=== PATIENT | female | born 1990 | race Caucasian/White ===

== ENCOUNTER → 2018-03-13 17:29 | Outpatient (CLI) | payer BC, SELFPAY ==
[2018-03-13 19:10] LABS: hCG Titer Quant., Serum 26560 mIU/mL (<9 non-preg)
== END ==
PROVIDERS: Family Provider Internal Medicine; PCP Internal Medicine; Visit Provider Obstetrics & Gynecology
DX: N91.2 Amenorrhea, unspecified (principal)
CPT/HCPCS: 36415; 84702

== ENCOUNTER → 2018-04-13 13:54 | Outpatient (CLI) | payer BC, SELFPAY ==
[2018-04-13 14:58] LABS: Absolute Lymphocyte Count 2.08 X10^3/ul (0.83-4.51); Absolute Neutrophil Count 7.2 X10^3/uL (2.0-7.7); Basophil# 0.01 X10^3/uL; Basophil% 0.1 % (0-1); Eosinophil# 0.02 X10^3/uL; Eosinophils% 0.2 % (0-5); Hematocrit 37.6 % (37-47); Hemoglobin 12.9 g/dl (12.0-15.0); Lymphocyte # 2.08 X10^3/ul (4.0); Lymphocyte % 20.8 % (19-41); Mean Corp Hgb Conc 34.3 g/gl (32-36); Mean Corpuscular Hgb 27.4 pg (27.0-32.0); Mean Platelet Vol. 8.8 fl (6.2-12.0); Monocyte# 0.67 X10^3/uL; Monocyte% 6.7 % (0-10); Neutrophil # 7.21 X10^3/uL (2.7-7.7); Neutrophil % 72.1 % (47-70); Platelet Count 290 K/mm3 (150-450); RBC Distribution Width CV 13.3 % (11.6-14.6); RBC Distribution Width SD 38.8 fl (35.1-43.9)
[2018-04-13 15:01] LABS: POSITIVE COUNT NO; POSITIVE DIFFERENTIAL NO; POSITIVE MORPHOLOGY NO
[2018-04-13 15:09] LABS: Color, Urine Yellow (Yellow); Glucose, Dipstick Normal (Normal); Leukocyte Esterase-Dipstick 500 /ul (Negative); Nitrite-Dipstick Negative (Negative); Occult Blood-Urine Negative /ul (Negative); Protein-Dipstick Negative (Negative); Urine Bilirubin Dipstick Negative (Negative); Urine Clarity Clear (Clear); Urine Urobilinogen Normal (Normal)
[2018-04-13 15:15] LABS: Ketone-Dipstick 150 mg/dl (Negative)
[2018-04-13 15:30] LABS: Thyroid Stim Hormone (TSH) 1.79 uIU/mL (0.358-3.74)
[2018-04-13 16:12] LABS: Amphetamine Urine VISTA NEGATIVE (<1000 ng/mL); Barbiturate Urine VISTA NEGATIVE (< 200 ng/mL); Benzodiazepine Urine VISTA NEGATIVE (< 200 ng/mL); Cocaine Urine VISTA NEGATIVE (< 300 ng/mL); Ecstacy Urine VISTA NEGATIVE (< 500 ng/mL); Methadone Urine VISTA NEGATIVE (< 300 ng/mL); PCP Urine VISTA NEGATIVE (< 25 ng/mL); THC Urine VISTA NEGATIVE (< 50 ng/mL); Vista UDS pH Range 7
[2018-04-13 16:20] LABS: HIV - WCH Non-Reactive (Nonreactive); Rubella IgG 443.7 IU/mL
[2018-04-13 17:31] LABS: Chlamydia Trachomatis by PCR Negative (Negative); Neisserai gonorrhoeae by PCR Negative (Negative); Probe Check PASS; Sample Adequacy Control PASS; Specimen Processing Control PASS
[2018-04-14 13:31] LABS: HEPATITIS B SURFACE AG Negative (Negative); Hep C Antibodies <0.1 s/co ratio (0.0-0.9)
[2018-04-20 09:08] LABS: Prenatal RPR NONREACTIVE (NONREACTIVE)
== END ==
PROVIDERS: Visit Provider Obstetrics & Gynecology
DX: Z34.81 Encounter for supervision of other normal pregnancy, first trimester (principal); Z11.3 Encounter for screening for infections with a predominantly sexual mode of transmission
CPT/HCPCS: 36415; 80307; 81002; 84443; 85025; 86703; 86762; 86803; 87340; 87491; 87591

== ENCOUNTER → 2018-06-09 09:18 | Outpatient (CLI) | payer BC, SELFPAY ==
--- NOTE | 2018-06-09 09:20 | US_ITS ---
STUDY: SECOND AND THIRD TRIMESTER OBSTETRICAL ULTRASOUND REASON FOR EXAM: Female, 27 years old. Routine survey. LMP: 01/24/2018 TECHNIQUE: Transabdominal PRIOR ULTRASOUND: None. FINDINGS: There is a single intrauterine fetus. The fetus is in a breech presentation. There is demonstrated cardiac activity with a heart rate of 140 bpm. There is a normal amniotic fluid volume. The largest amniotic fluid pocket measures 10.2 cm. The placenta is anterior and low lying but not previa in location. There are Grade 0 placental changes. The cervix is closed. BIOMETRY: BPD: 4.3: 19 weeks, 0 days HC: 16.4: 19 weeks, 2 days AC: 14.3: 19 weeks, 5 days FL: 3.2: 20 weeks, 0 days CI: FL/BPD: FL/HC: FL/AC: HC/AC: age by current US: 19 weeks, 4 days. JP by current US: 10/30/2018. Estimated weight: 307 grams, +/- 45 grams, 61 %. age by prior US: weeks, days. JP by prior US: . Age by LMP: 19 weeks, 3 days. JP by LMP: 10/31/2018. ANATOMY: Gender: Female Cranium: Normal lateral ventricles. Normal choroid plexus. Normal cerebellum. Normal cisterna magna. Normal face, nose and lips. Chest: The heart is not adequately visualized. Abdomen/Pelvis: Normal diaphragm. Normal stomach. Normal abdominal wall. Normal cord insertion. Normal 3 vessel cord. Normal kidneys. Normal bladder. Spine: Normal cervical spine. Normal thoracic spine. Normal lumbar spine. Sacrum is not adequately visualized. Extremities: Normal bilateral upper extremities. Normal bilateral lower extremities. US/OB Anatomy Scan IMPRESSION: Single live fetus in a breech presentation. No demonstrated anatomic abnormality, however some structures not adequately seen as above. Placenta is grade 0 and is not low-lying. Cervix is closed. age by current US: 19 weeks, 4 days. JP by current US: 10/30/2018. Estimated weight: 307 grams, +/- 45 grams, 61 %. Electronically Signed: John Lopez MD at 23:54 EDT , Service support ,
== END ==
PROVIDERS: Visit Provider Obstetrics & Gynecology
DX: Z34.90 Encounter for supervision of normal pregnancy, unspecified, unspecified trimester (principal)
CPT/HCPCS: 76805

== ENCOUNTER → 2018-06-14 16:56 | Outpatient (CLI) | payer BC, SELFPAY | PROVIDERS: Visit Provider Nurse Practitioner Women's Health | DX: Z34.90 Encounter for supervision of normal pregnancy, unspecified, unspecified trimester (principal) | CPT/HCPCS: 87086; 87088 ==

== ENCOUNTER → 2018-07-02 08:46 | Outpatient (CLI) | payer BC, SELFPAY | PROVIDERS: Visit Provider Nurse Practitioner Women's Health | DX: Z04.8 Encounter for examination and observation for other specified reasons (principal) | CPT/HCPCS: 76815 ==

== ENCOUNTER → 2018-08-13 10:14 | Outpatient (CLI) | payer BC, SELFPAY ==
[2018-08-13 10:36] LABS: Absolute Lymphocyte Count 1.47 X10^3/ul (0.83-4.51); Absolute Neutrophil Count 9.7 X10^3/uL (2.0-7.7); Basophil# 0.01 X10^3/uL; Basophil% 0.1 % (0-1); Eosinophil# 0.02 X10^3/uL; Eosinophils% 0.2 % (0-5); Hematocrit 36.2 % (37-47); Lymphocyte # 1.47 X10^3/ul (4.0); Lymphocyte % 12.6 % (19-41); Mean Corp Hgb Conc 33.1 g/gl (32-36); Mean Corpuscular Hgb 27.3 pg (27.0-32.0); Mean Corpuscular Volume 82.5 fL (81-99); Monocyte# 0.48 X10^3/uL; Monocyte% 4.1 % (0-10); Neutrophil # 9.68 X10^3/uL (2.7-7.7); Neutrophil % 82.9 % (47-70); Platelet Count 243 K/mm3 (150-450); RBC Distribution Width CV 14.2 % (11.6-14.6); RBC Distribution Width SD 42.6 fl (35.1-43.9); Red Blood Count 4.39 M/mm3 (4.2-5.4); White Blood Count 11.7 K/mm3 (4.4-11.0)
[2018-08-13 10:37] LABS: POSITIVE COUNT NO; POSITIVE DIFFERENTIAL NO; POSITIVE MORPHOLOGY NO
[2018-08-13 11:04] LABS: Glucose Challenge Gest 1H 50g 154 mg/dL (70-140)
== END ==
PROVIDERS: Referring Provider Nurse Practitioner Women's Health; Visit Provider Nurse Practitioner Women's Health
DX: Z34.90 Encounter for supervision of normal pregnancy, unspecified, unspecified trimester (principal)
CPT/HCPCS: 36415; 82950; 85025

== ENCOUNTER → 2018-08-20 09:55 | Outpatient (CLI) | payer BC, SELFPAY ==
[2018-08-20 11:03] LABS: Glucose GTT-Gestation. Fasting 84 mg/dL (<105)
[2018-08-20 11:43] LABS: Glucose GTT-Gestational 1 Hr 164 mg/dL (<190)
[2018-08-20 13:49] LABS: Glucose GTT-Gestational 2 Hr 152 mg/dL (<165)
[2018-08-20 13:50] LABS: Glucose GTT-Gestational 3 Hr 72 L (<145)
== END ==
PROVIDERS: Referring Provider Nurse Practitioner Women's Health; Visit Provider Nurse Practitioner Women's Health
DX: O99.815 Abnormal glucose complicating the puerperium (principal)
CPT/HCPCS: 36415; 82951; 82952

== ENCOUNTER → 2018-10-10 16:47 | Outpatient (CLI) | payer BC, SELFPAY ==
[2018-10-10 11:46] VITALS: BMI 42.9
--- OUTSIDE RECORDS SUMMARY | 2018-12-06 02:53 | XMS RPT_ITS ---
:1990 Author Organization OHIP Support Name Relationship Address Phone JAMIE ALVAREZ Unavailable [address] + [place] [address] [id number] Unavailable [address] + [place] [address] JAMIE ALVAREZ Unavailable [address] + [place] [address] [id number] Unavailable [address] + [place] [address] NELLIE ALVAREZED Unavailable [address] + [place] [address] [id number] Unavailable [address] + [place] [address] KIM, JAMIE Unavailable [address] + [place] [address] [id number] Unavailable [address] + [place] [address] KIM, JAMIE Unavailable [address] + [place] [address] [id number] Unavailable [address] + [place] [address] KIM, JAMIE Unavailable [address] + [place] [address] [id number] Unavailable [address] + [place] [address] KIM, JAMIE Unavailable [address] + [place] [address] [id number] Unavailable [address] + [place] [address] NELLIE ALVAREZED Unavailable [address] + [place] [address] [id number] Unavailable [address] + [place] [address] ALVAREZ, JAMIE Unavailable [address] + [place] [address] [id number] Unavailable [address] + [place] [address] ALVAREZ, JAMIE Unavailable [address] + [place] [address] [id number] Unavailable [address] + [place] [address] ALVAREZ, JAMIE Unavailable [address] + [place] [address] [id number] Unavailable [address] + [place] [address] ALVAREZ, JAMIE Unavailable [address] + [place] [address] [id number] Unavailable [address] + [place] [address] ALVAREZ, JAMIE Unavailable [address] + [facility] [place] [address] [id number] Unavailable [address] + [place] [address] ALVAREZ, JAMIE Unavailable [address] + [facility] [place] [address] [id number] Unavailable [address] + [place] [address] ALVAREZ, JAMIE Unavailable [address] + [place] [address] [id number] Unavailable [address] + [place] [address] ALVAREZ, JAMIE Unavailable [address] + [place] [address] [id number] Unavailable [address] + [place] [address] ALVAREZ, JAMIE Unavailable [address] + [place] [address] [id number] Unavailable [address] + [place] [address] ALVAREZ, JAMIE Unavailable [address] + [place] [address] [id number] Unavailable [address] + [place] [address] ALVAREZ, JAMIE Unavailable [address] + [place] [address] [id number] Unavailable [address] + [place] [address] ALVAREZ, JAMIE Unavailable [address] + [place] [address] [id number] Unavailable [address] + [place] [address] ALVAREZ, JAMIE Unavailable [address] + [place] [address] [id number] Unavailable [address] + [place] [address] ALVAREZ, JAMIE Unavailable [address] + [place] [address] [id number] Unavailable [address] + [place] [address] ALVAREZ, JAMIE Unavailable [address] + [place] [address] [id number] Unavailable [address] + [place] [address] [id number] Unavailable [address] + [place] [address] ALVAREZ, JAMIE Unavailable [address] + [place] [address] [id number] Unavailable [address] + [place] [address] MITUL LI Unavailable Unavailable + [place] [address] ALIX RAMSEY Unavailable [address] + [place] [address] [id number] Unavailable [address] [facility] [address] + [place] [address] MITUL LI Unavailable Unavailable + [place] [address] ALIX RAMSEY Unavailable [address] + [place] [address] [id number] Unavailable [address] [facility] [address] + [place] [address] Care Team Providers Name Role Phone Alix Nicole Attending Unavailable MarcanthonyAlix Referring Unavailable Primay Care Physicia, No Primary Care Unavailable Benekos, Tara Attending Unavailable Talampas, Kirstie Primary Care Unavailable Benekos, Tara Referring Unavailable Benekos, Tara Attending Unavailable Marcanthony, Alix Attending Unavailable Talampas, Kirstie Referring Unavailable Talampas, Kirstie Primary Care Unavailable Talampas, Kirstie Attending Unavailable Marcanthony, Alix Attending Unavailable Marcanthony, Alix Referring Unavailable Primay Care Physicia, No Primary Care Unavailable Eduin, Jeimy Attending Unavailable Talampas, Kirstie Referring Unavailable Primay Care Physicia, No Primary Care Unavailable Eduin, Jeimy Attending Unavailable Primay Care Physicia, No Primary Care Unavailable Eduin, Jeimy Referring Unavailable Eduin, Jeimy Attending Unavailable Primay Care Physicia, No Primary Care Unavailable MarcanthonyAlix Attending Unavailable Primay Care Physicia, No Referring Unavailable Primay Care Physicia, No Primary Care Unavailable Jber, Jeimy Attending Unavailable Primay Care Physicia, No Referring Unavailable Jber, Jeimy Attending Unavailable Jber, Jeimy Referring Unavailable Primay Care Physicia, No Primary Care Unavailable Eduin, Jeimy Attending Unavailable Eduin, Jeimy Referring Unavailable Primay Care Physicia, No Primary Care Unavailable Marcanthony, Alix Attending Unavailable Primay Care Physicia, No Referring Unavailable Marcanthony, Alix Attending Unavailable Primay Care Physicia, No Referring Unavailable Eduin, Jeimy Attending Unavailable Primay Care Physicia, No Referring Unavailable MarcanthonyAlix Admitting Unavailable Marcanthony, Alix Attending Unavailable MarcanthonyAlix Referring Unavailable Primay Care Physicia, No Primary Care Unavailable Marcanthony, Alix Attending Unavailable Primay Care Physicia, No Referring Unavailable Marcanthony, Alix Attending Unavailable Primay Care Physicia, No Primary Care Unavailable Marcanthony, Alix Referring Unavailable Marcanthony, Alix Attending Unavailable Primay Care Physicia, No Referring Unavailable Marcanthony, Alix Attending Unavailable Marcanthony, Alix Referring Unavailable Primay Care Physicia, No Primary Care Unavailable Marcanthony, Alix Admitting Unavailable Marcanthony, Alix Attending Unavailable Primay Care Physicia, No Primary Care Unavailable Marcanthony, Alix Admitting Unavailable Marcanthony, Alix Attending Unavailable Primay Care Physicia, No Primary Care Unavailable Marcanthony, Alix Consulting Unavailable Marcanthony, Alix Admitting Unavailable Marcanthony, Alix Attending Unavailable Primay Care Physicia, No Primary Care Unavailable Marcanthony, Alix Consulting Unavailable Marcanthony, Alix Admitting Unavailable Marcanthony, Alix Attending Unavailable Primay Care Physicia, No Primary Care Unavailable Marcanthony, Alix Consulting Unavailable Marcanthony, Alix Admitting Unavailable Marcanthony, Alix Attending Unavailable Primay Care Physicia, No Primary Care Unavailable Marcanthony, Alix Consulting Unavailable PROBLEMS PROBLEMS DATE TYPE CONDITION / CODE ATTENDING STATUS SOURCE 10/11/2018 Unknown Z34.90 - Encounter Marcanthony, Active [place] for supervision of [facility] normal , Hospital unspecified, Repository unspecified trimester / Z34.90(ICD-10) 10/10/2018 Unknown R87.610 - Atypical Marcanthony, Active [place] squamous cells of [facility] undetermined Hospital significance on Repository cytologic smear of cervix (ASC-US) / R87.610(ICD-10) 10/10/2018 Unknown Z30.431 - Encounter Marcanthony, Active [place] for routine [facility] checking of Hospital intrauterine Repository contraceptive device / Z30.431(ICD-10) 10/10/2018 Unknown Z34.03 - Encounter Marcanthony, Active [place] for supervision of [facility] normal first Hospital , third Repository trimester / Z34.03(ICD-10) 10/10/2018 Unknown O99.815 - Abnormal Marcanthony, Active [place] glucose [facility] complicating the Hospital puerperium / Repository O99.815(ICD-10) 10/10/2018 Unknown Z3A.36 - 36 weeks Marcanthony, Active [place] gestation of [facility] / Hospital Z3A.36(ICD-10) Repository 09/24/2018 Unknown Z68.39 - Body mass Jber, Jeimy Active [facility] index (BMI) Community 39.0-39.9, adult / Hospital Z68.39(ICD-10) Repository 09/24/2018 Unknown Z3A.34 - 34 weeks Eduin, Jeimy Active [facility] gestation of [facility] / Hospital Z3A.34(ICD-10) Repository 09/10/2018 Unknown Z3A.32 - 32 weeks Marcanthony, Active [place] gestation of [facility] / Hospital Z3A.32(ICD-10) Repository 08/27/2018 Unknown Z3A.30 - 30 weeks Marcanthony, Active [facility] gestation of [facility] / Hospital Z3A.30(ICD-10) Repository 08/13/2018 Unknown Z34.02 - Encounter Eduin, Jeimy Active [place] for supervision of [facility] normal first Hospital , second Repository trimester / Z34.02(ICD-10) 08/13/2018 Unknown Z23 - Encounter for Jber, Jeimy Active [place] immunization / [facility] Z23(ICD-10) Hospital Repository 08/13/2018 Unknown Z3A.28 - 28 weeks Jber, Jeimy Active [place] gestation of [facility] / Hospital Z3A.28(ICD-10) Repository 07/17/2018 Unknown Z3A.25 - 25 weeks Marcanthony, Active [facility] gestation of [facility] / Hospital Z3A.25(ICD-10) Repository 07/02/2018 Unknown Z04.8 - Encounter Jber, Jeimy Active [facility] for examination and Community observation for Hospital other specified Repository reasons / Z04.8(ICD-10) 06/14/2018 Unknown Z3A.20 - 20 weeks Jber, Jeimy Active [place] gestation of [facility] / Hospital Z3A.20(ICD-10) Repository 04/27/2018 Unknown Z34.81 - Encounter Tara Gómez Active [facility] for supervision of Community other normal Hospital , first Repository trimester / Z34.81(ICD-10) 03/13/2018 Unknown N91.2 - Amenorrhea, Tara Gómez Active [facility] unspecified / Community N91.2(ICD-10) Hospital Repository PROCEDURES PROCEDURES No Procedure Records FoundRESULTS RESULTS OPERATIVE REPORT Observed: 10/19/2018 Status: F Source: RADHA 5:24 AM [facility] REPOSITORY [facility] Medical Records Department [address] [place] [address] Operative Report 10/19/18 0429 MR#: [id number] Acct: [id number] Name: CHARO ALVAREZ Rep #: [id number] : 1990 28 From: Alix Nicole MD PCP: Care Physician, No Primary Status: ADM IN Y Location: [id number] - Problem List (1) PROM (premature rupture of membranes) Status: Acute (2) Obesity affecting Status: Acute Comment: nl 1 tm glucola, discussed healthy weight gain (3) Unspecified contraceptive management Status: Acute Qualifiers: Comment: iud pp (4) Abnormal glucose complicating puerperium Status: Acute Comment: 3 hr GTT normal (5) Unspecified contraceptive management Status: Acute Comment: Mirena IUD pp (6) Status: Acute Qualifiers: Comment: anatomy scan normal. (7) ASCUS of cervix with negative high risk HPV Status: Acute Comment: pap PP (8) Supervision of normal Status: Acute Qualifiers: Comment: JP 10/31/18 girl- surprise name Jamie (dtr Fran) Vaginal Delivery Maternal Presentation: Spontaneous Rupture of Membranes 28 yo presents IAL srom clear fluid. started on pitocin due to minimal contractions Method of Induction: Pitocin Amniotic Membrane Rupture Type: Spontaneous at home Amniotic Fluid Description: Clear Final JP: 10/30/18 Gestational age: 38 Weeks and 3 Days Date of Procedure: 10/19/18 Pre-Operative Diagnosis: PROM Post-Operative Diagnosis: same Surgery/ Procedure Performed: Spontaneous Vaginal Delivery Type of Anesthesia: Epidural Description of Procedure: Patient began pushing and delivered the head in the JOSE presentation. The head was delivered atraumatically. The shoulders came down transversely and then spontaneously rotated to the right shoulder being anterior. The anterior and posterior shoulders delivered without complication followed by the rest of the and the was placed on the maternal abdomen. Delayed cord clamping was employed for approximately 60 seconds. Cord was clamped and cut and gentle traction was applied to the cord and the placenta delivered spontaneously immediately following it was noted to be intact with three- vessel cord. The perineum and vagina were inspected and noted to have a small first-degree perineal laceration was repaired in the usual fashion with 3-0 Vicryl repeat. EBL was 100 cc. Patient and tolerated delivery well. Presentation: JOSE Placental Delivery Description: Spontaneous Placenta Disposition: [facility] Cord Vessel Description: 3 Vessels Cord Entanglement: None Estimated Blood Loss: 100 A gender: Female Episiotomy Description: None Laceration: Perineal Extension/lac, 1st degree Medications given after delivery: IV Pitocin Complications: None 10/19/18523 <Electronically signed by Alix Nicole MD> Date Alix Nicole MD CC: No Primary Care Physician; Alix Nicole MD Signed DISCHARGE INSTRUCTION Observed: 10/19/2018 Status: F Source: ANTWERP 5:24 AM [facility] REPOSITORY [facility] Medical Records Department [address] [place] [address] Instructions for Home/Discharge Instructions 10/19/18523 MR#: [id number] Acct: [id number] Name: CHARO ALVAREZ Rep #: [id number] : 1990 28 From: Alix Nicole MD PCP: Care Physician, No Primary Status: ADM IN Discharge Diet: No Restrictions Discharge Activity: Return to Normal Activity, May not drive while taking narcotic pain medications., May Shower May resume sexual activity in: 4-6 weeks Call your doctor if your incision/area has: Continuous Slow Oozing, Sudden Increased Bleeding, Increased Pain/ Swelling, Increased Redness, Foul Smelling Discharge Additional Instructions: If you experience any of the following, contact your healthcare provider. * Bleeding that soaks a pad every hour for 2 hours * Fever 100.4 or higher * Unrelieved incision or abdominal pain * Swelling, redness, discharge or bleeding from your incision or episiotomy site * Your incision begins to separate * Problems urinating (including inability to urinate or burning while urinating). * Visual changes * Severe headache * Flu-like symptoms * Pain or redness in one of both of your breasts * Pain, warmth, tenderness or swelling in your legs, especially the calf area * Frequent nausea and vomiting * Symptoms of depression or anxiety If you experience any of the following, call 911 or go to the nearest Emergency Room. * Chest pain * Problems breathing * Seizure activity * Partial or complete paralysis of a body part, slurred speech, weakness or drooping of the face, or a sudden inability to walk or hold your balance Allergies/Adverse Reactions: Allergies No Known Allergies Allergy (Verified 10/15/18 08:40) Medications to take at Discharge omeprazole 40 mg capsule,delayed release 40 mg PO QDAY 05/14/18 vitamin,calcium,nrprbgtc-ixfe-zmnqq acid tablet 1 tab PO QDAY 05/14/18 breast pump See Dose Instructions .ROUTE .MEDSUPPLY #1 ea 08/20/18 Please Follow Up With: Alix Nicole MD - [phone] When: Call to make an appointment with your doctor in 6 weeks. If you had elevated Blood pressure or 4th degree laceration you will need to be seen in 2 weeks. Primary Care Physician: Care Physician,No Primary [Primary Care Provider] - Test Results: Test results from this visit will be discussed in further detail at your follow-up appointment, if applicable. 10/19/18 0524 <Electronically signed by Alix Nicole MD> Date Alix Nicole MD CC: No Primary Care Physician HISTORY AND PHYSICAL Observed: 10/18/2018 Status: F Source: ANTWERP EXAM 8:21 PM [facility] REPOSITORY [facility] Medical Records Department [address] [place] [address] History and Physical 10/18/182016 MR#: [id number] Acct: [id number] Name: CHARO ALVAREZ Rep #: [id number] : 1990 28 From: Alix Nicole MD PCP: Care Physician, No Primary Status: ADM IN Y Location: [id number] - Problem List (1) PROM (premature rupture of membranes) Status: Acute (2) Obesity affecting Status: Acute Comment: nl 1 tm glucola, discussed healthy weight gain (3) Unspecified contraceptive management Status: Acute Qualifiers: Comment: iud pp (4) Abnormal glucose complicating puerperium Status: Acute Comment: 3 hr GTT normal (5) Unspecified contraceptive management Status: Acute Comment: Mirena IUD pp (6) Status: Acute Qualifiers: Comment: anatomy scan normal. (7) ASCUS of cervix with negative high risk HPV Status: Acute Comment: pap PP (8) Supervision of normal Status: Acute Qualifiers: Comment: JP 10/31/18 girl- surprise name Jamie (dtleonila Peters) History Date of Admission: 10/18/18 Final JP: 10/30/18 Gestational age: 38 Weeks and 2 Days History of this : This is a 28 year-old, at 38 weeks gestational agE with clear LOF this afternoon at work. she denies any fevers or vb, admits good fm. she has had an uncomplicated Medical History: Medical History (Last Reviewed 10/15/18 @ 08:41 by Raquel Hackett) GERD (gastroesophageal reflux disease) K21.9 H/O endoscopy Z98.890 H/O wisdom tooth extraction K08.409 Ovarian cyst N83.209 Allergies No Known Allergies Allergy (Verified 10/15/18 08:40) Home Medications: Home Medications omeprazole 40 mg capsule,delayed release 40 mg PO QDAY 05/14/18 vitamin,calcium,cmppxnrw-cmjd-notks acid tablet 1 tab PO QDAY 05/14/18 breast pump See Dose Instructions .ROUTE .MEDSUPPLY #1 ea 08/20/18 Smoking Status: Former smoker Alcohol: None Number of Fetus(es): 1 Heart Tracin-160 moderate variability reactive no decels cat I tracing TOCO Analysis: no regular History Past Pregnancies: Past Pregnancies Delivery Name GA/Weeks Outcome Route WeiInfant GeLabor LenAnesthesiDelivery Provider FOB Date t nder [facility] a Location Labs: Mom[facility] Labs AND Results WBC 12.4 H RBC 4.50 Hgb 12.2 Hct 36.2 L MCV 80.4 L Course Did the patient receive Yes care? Labs Blood Type: A Current Obstetrical History Gestational Diabetes No Incompetent Cervix No Infertility No IUGR No Macrosomia No Hypertension/Pre-eclampsia No Placenta Previa/Abruption No PTL/PROM No Uterine anomaly No Oligohydramnios No Polyhydramnios No Multiple gestation No Past Medical History Asthma No Diabetes No Hypertension No Heart disease No Mitral valve prolapse No Neurologic/Seizure disorder/ No Migraines Kidney disease No Liver disease No Varicosities No Clotting disorders/Hx of DVT No Thyroid Dysfunction No Other medical diseases Yes: GERD Psychiatric disorders No Major trauma No Abnormal PAP smear No Sleep apnea No Mammogram in the last 2 years No Social History Marital Status: Alleged father Jamie Hx Smoking Yes Smoking Status Former smoker Expected Delivery Method: Spontaneous Vaginal Describe any other labor AND delivery plans:: Pregancy History. 1 Elective abortions. Hx Para 0 Spontaneous abortions. Hx # Term Pregnancies Ectopic pregnancies. Hx # Pregnancies Multiple births. # of living children. HPI. OB Visit. JP Calculator. Estimated Delivery Date 10/31/18. Based on LMP (certain) 01/24/18. Current WG 37w 5d. Number 1. Expected Delivery Route/Plan. . Specific Issue/Plans. flu vaccine:declined. minichart given: given. tdap vaccine: given. rhogam: NA. LARC form signed: declines. labor support person: Jamie. pain management: epidural. cut cord/dad catch: maybe. : yes. PP control planned: IUD. special requests: Review of Systems Constitutional: Denies: Fever, Malaise Eyes: Denies: Blurred vision, Vision Change HEENT: Denies: Head Aches, Visual Changes Cardiovascular: Denies: Chest Pain, Palpitations Respiratory: Denies: Cough, Shortness of Breath, Wheezing Gastrointestinal: Denies: Abdominal Pain, Diarrhea, Nausea, Vomiting Genitourinary: Denies: Dysuria, Hematuria Musculoskeletal: Denies: Joint Pain, Muscle pain Skin: Denies: Lesions, Rash Neurological: Denies: Blurred vision, Focal weakness, Headaches Psychiatric: Denies: Anxiety, Depression Endocrine: Denies: Heat/ Cold Intolerance Hematologic/ Lymphatic: Denies: Easy Bruising, Easy Bleeding Physical Exam General: Alert, Cooperative, No apparent distress HEENT: Atraumatic, Normocephalic. Negative for: Thyromegaly, Lymphadenopathy Cardiovascular: Regular rate Lungs: Normal air movement Abdomen: Soft, Non Tender, Gravid Neurological: Deep Tendon Reflexes 2+/4 and Symmetrical, Neuro grossly intact. Negative for: Clonus CELERY CUTTER: Normal external genitalia. Negative for: Vulvar lesions Estimated gestational size: Appropriate for gestational size Presentation: Cephalic Cervix Dilation (cm): 3 Assessment/Plan All Active Problems (Last Reviewed 10/15/18 @ 08:41 by Raquel Hackett) PROM (premature rupture of membranes) (Acute) Obesity affecting (Acute) Unspecified contraceptive management (Acute) Abnormal glucose complicating puerperium (Acute) Unspecified contraceptive management (Acute) (Acute) ASCUS of cervix with negative high risk HPV (Acute) Supervision of normal (Acute) BMI 39.0-39.9,adult (Resolved) This is a 28 year-old, , at 38 weeks gestational age presents with PROM Patient presents PROM, plan expectant management for , pitocin per protocol for limited contractions. Pain management: plans epidural GBS negative. Management of any complications: none I have reviewed the [facility] and made any clinically relevant updates. 10/18/182020 <Electronically signed by Alix Nicole MD> Date Alix Nicole MD Cosigner Signature: Date (if applicable) CC: No Primary Care Physician; Alix Nicole MD Signed CBC-COMPLETE BLOOD CNT Collected: 10/18/2018 Status: F Source: RADHA NO DIFF 7:37 PM [facility] REPOSITORY TYPE CODE TESTS RESULT OUT OF RANGE REFERENCE UNITS LAB L100.1000 4.4-11.0 K/mm3 High WBC 12.4 LAB L100.1200 4.2-5.4 M/mm3 Normal RBC 4.50 LAB L100.1300 12.0-15.0 g/dl Normal HGB 12.2 LAB L100.1400 37-47 % Low HCT 36.2 LAB L100.1500 81-99 fL Low MCV 80.4 LAB L100.1600 27.0-32.0 pg Normal MCH 27.1 LAB L100.1700 32-36 g/gl Normal MCHC 33.7 LAB L100.1810 11.6-14.6 % Normal RDW CV 14.3 LAB L100.1820 35.1-43.9 fl Normal RDW SD 41.6 LAB L100.1900 150-450 K/mm3 Normal PLT 255 LAB L100.2000 6.2-12.0 fl Normal MPV 9.4 Performed By: #### L100.0500 #### [facility] [address] [place], [address] TYPE AND SCREEN Collected: 10/18/2018 Status: F Source: RADHA 7:37 PM [facility] REPOSITORY Order Comment: Reason for Type AND Screen/Red Cells: ROUTINE TYPE CODE TESTS RESULT OUT OF RANGE REFERENCE UNITS LAB B10.0800 A Normal BLOOD TYPE GEL POSITIVE LAB B100.4000 Normal Antibody NEGATIVE Screen Performed By: #### B101.7450 #### [facility] [address] [place], [address] (ROM) RUPTURE OF Collected: 10/18/2018 Status: F Source: RADHA MEMBRANES 6:25 PM [facility] REPOSITORY TYPE CODE TESTS RESULT OUT OF REFERENCE UNITS RANGE LAB L205.1310 Negative High ROM POSITIVE Result Comment: Amniotic fluid present indicates rupture of Membranes. RESULTS CALLED TO C.ST.JOHN CARRERA 10/18/18 1908 Iggy Asif. REPORT READ BACK BY SAME . Performed By: #### L205.1000 #### [facility] [address] [place], [address] MINE SUPERINTENDENT OFFICE VISIT Observed: 10/15/2018 Status: F Source: RADHA REPORT 9:00 AM [facility] REPOSITORY [facility] 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 Is patient in pain?: No Allergies No Known Allergies Allergy (Verified 10/15/18 08:40) Medications omeprazole 40 mg capsule,delayed release 40 mg PO QDAY 05/14/18 [History Confirmed 10/15/18] vitamin,calcium,gcxolujp-laff-wbyjk acid tablet 1 tab PO QDAY 05/14/18 [History Confirmed 10/15/18] breast pump See Dose Instructions .ROUTE .MEDSUPPLY #1 ea 08/20/18 [Rx Confirmed 10/15/18] Last Menstral Period: 01/24/18 Zika: Zika virus screening: Negative : No PFSH PFSH Medical History GERD (gastroesophageal reflux disease) (Acute) H/O endoscopy (Acute) H/O wisdom tooth extraction (Acute) Ovarian cyst (Acute) Family History Mother Acid reflux Osteoporosis Acquired scoliosis Father Acid reflux Diverticula of intestine Sleep apnea Social History adopted: No household members: spouse housing: house number of children: 1 current occupational status: employed current occupation: [employer] current occupational exposures/hazards: No pets and animals: Yes Smoking Status: Current every day smoker second hand exposure: No alcohol intake: current alcohol intake frequency: other substance use type: does not use seatbelt use: always do you feel safe at home: Yes additional social history: Spouse- Jamie Step Dght- Raelah Pregancy History 1 Elective abortions Hx Para 0 Spontaneous abortions HPI 37 weeks: Details: CHARO ALVAREZ is a 28 year old who presents for routine OB visit. OB Visit JP Calculator Estimated Delivery Date 10/31/18 Based on LMP (certain) 01/24/18 Current WG 37w 5d Number 1 Expected Delivery Route/Plan Specific Issue/Plans flu vaccine:declined minichart given: given tdap vaccine: given rhogam: NA LARC form signed: declines labor support person: Jamie pain management: epidural cut cord/dad catch: maybe : yes PP control planned: IUD special requests: Initial Weight: 225 lb Date Weight BP Urine PrFHR FuHt Pres MoCTX DilationFetal StVisit NoProviderComments E ot v te [place] G Effac lucose ed Visit Notes Visit Date: 10/15/18 enlarged fundal height recommend growth us. no vb lof good fm no regular ctx Alix Nicole MD on 10/15/18 Visit Date: 10/10/18 no vb lof good fm no ergular ctx Alix Nicole MD on 10/10/18 Visit Date: 09/24/18 Doing well. No VB, LOF. ALOK Maza on 09/24/18 Visit Date: 09/10/18 no vb lof good fm no regualr ctx Alix Nicole MD on 09/10/18 Visit Date: 08/27/18 no vb lof good fmno regualr ctx Alix Nicole MD on 08/27/18 Visit Date: 08/13/18 Doing well. NO VB, LOF ALOK Maza on 08/13/18 Visit Date: 07/17/18 no vb lof good fm reviewed anatomy us Alix Nicole MD on 07/17/18 Visit Date: 06/14/18 Doing well. Thinks feeling some movement. No vaginal bleeding or LOF since prior to last visit. ALOK Maza on 06/14/18 Visit Date: 05/14/18 had bleeding and brown discharge. JANICE Linas Alix Nicole MD on 05/14/18 ACOG Second Trimester Second Trimester: Signs and Symptoms of Labor, Selecting a care provider, Reproductive Life Planning, Care Planning, Depression/Anxiety and Intimate Partner Violence; discussed Tobacco Cessation Diagnostics Diagnostics Labs Hct 36.2 % (37-47) L 08/13/18 Hgb 12.0 g/dl (12.0-15.0) 08/13/18 Obstetrics Ultrasound 07/02/18 Glucose 1 Hr 50 gm 154 mg/dL (70-140) H 08/13/18 Details: HIV: Urine Culture: Sequential Screen: NIPT Screen: Results [id number] Office Urine Glucose Negative Last Edit by Raquel Hackett on 10/15/18 08:43 Office Urine Protein Negative Last Edit by Raquel Hackett on 10/15/18 08:43 Assessment AND Plan Problems 1. ASCUS of cervix with negative high risk HPV R87.610 pap PP 2. 38 weeks gestation of Z3A.38 anatomy scan normal. 3. Encounter for supervision of normal first in third trimester Z34.03 JP 10/31/18 girl- surprise name Jamie (dtr Fran) 4. Abnormal glucose complicating puerperium O99.815 3 hr GTT normal 5. Encounter for management of intrauterine contraceptive device (IUD), unspecified IUD management type Z30.431 iud pp Plan ACOG trimester education reviewed and updated. see problem list details for updated plan management information and see below for orders placed at this visit. GA appropriate handout given. Orders Orders: Coding Level of Care Code OB Routine Diagnoses ASCUS of cervix with negative high risk HPV R87.610 38 weeks gestation of Z3A.38 Weeks of gestation: 38 weeks Encounter for supervision of normal first in third trimester Z34.03 Normal : normal first Trimester: third trimester Abnormal glucose complicating puerperium O99.815 Encounter for management of intrauterine contraceptive device (IUD), unspecified IUD management type Z30.431 Contraceptive encounter type: IUD management IUD management: unspecified 10/15/18 0900 <Electronically signed by Alix Nicole MD> Date Alix Nicole MD Cosign Signature: Date (if applicable) CC: MINE SUPERINTENDENT OFFICE VISIT Observed: 10/10/2018 Status: F Source: [place] REPORT 12:33 PM [facility] 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 Is patient in pain?: No Allergies No Known Allergies Allergy (Verified 10/10/18 11:46) Medications omeprazole 40 mg capsule,delayed release 40 mg PO QDAY 05/14/18 [History Confirmed 10/10/18] vitamin,calcium,ifwmoqor-qxvx-fovru acid tablet 1 tab PO QDAY 05/14/18 [History Confirmed 10/10/18] breast pump See Dose Instructions .ROUTE .MEDSUPPLY #1 ea 08/20/18 [Rx Confirmed 10/10/18] Last Menstral Period: 01/24/18 Zika: Zika virus screening: Negative : No PFSH PFSH Medical History GERD (gastroesophageal reflux disease) (Acute) H/O endoscopy (Acute) H/O wisdom tooth extraction (Acute) Ovarian cyst (Acute) Family History Mother Acid reflux Osteoporosis Acquired scoliosis Father Acid reflux Diverticula of intestine Sleep apnea Social History adopted: No household members: spouse housing: house number of children: 1 current occupational status: employed current occupation: [employer] current occupational exposures/hazards: No pets and animals: Yes Smoking Status: Current every day smoker second hand exposure: No alcohol intake: current alcohol intake frequency: other substance use type: does not use seatbelt use: always do you feel safe at home: Yes additional social history: Spouse- Jamie Step Dght- Raelah Pregancy History 1 Elective abortions Hx Para 0 Spontaneous abortions HPI 36 week ob: Details: CHARO ALVAREZ is a 28 year old who presents for routine OB visit. OB Visit JP Calculator Estimated Delivery Date 10/31/18 Based on LMP (certain) 01/24/18 Current WG 37w 0d Number 1 Expected Delivery Route/Plan Specific Issue/Plans flu vaccine:declined minichart given: given tdap vaccine: given rhogam: NA LARC form signed: declines labor support person: Jamie pain management: epidural cut cord/dad catch: maybe : yes PP control planned: IUD special requests: Initial Weight: 225 lb Date Weight BP Urine PrFHR FuHt Pres MoCTX DilationFetal StVisit NoProviderComments E ot v te [place] G Effac lucose ed Visit Notes Visit Date: 10/10/18 no vb lof good fm no ergular ctx Alix Nicole MD on 10/10/18 Visit Date: 09/24/18 Doing well. No VB, LOF. ALOK Maza on 09/24/18 Visit Date: 09/10/18 no vb lof good fm no regualr ctx Alix Nicole MD on 09/10/18 Visit Date: 08/27/18 no vb lof good fmno regualr ctx Alix Nicole MD on 08/27/18 Visit Date: 08/13/18 Doing well. NO VB, LOF ALOK Maza on 08/13/18 Visit Date: 07/17/18 no vb lof good fm reviewed anatomy us Alix Nicole MD on 07/17/18 Visit Date: 06/14/18 Doing well. Thinks feeling some movement. No vaginal bleeding or LOF since prior to last visit. ALOK Maza on 06/14/18 Visit Date: 05/14/18 had bleeding and brown discharge. JANICE Benesachas Alix Nicole MD on 05/14/18 ACOG Second Trimester Second Trimester: Signs and Symptoms of Labor, Selecting a care provider, Reproductive Life Planning, Care Planning, Depression/Anxiety and Intimate Partner Violence; discussed Tobacco Cessation Diagnostics Diagnostics Labs Blood Type A POSITIVE 04/13/18 Hct 36.2 % (37-47) L 08/13/18 Hgb 12.0 g/dl (12.0-15.0) 08/13/18 Obstetrics Ultrasound 07/02/18 Rubella IgG Antibody 443.7 IU/mL 04/13/18 RPR NONREACTIVE (NONREACTIVE) 04/13/18 Hep Bs Antigen Negative (Negative) 04/13/18 Chlam trachomat DNA PCR Negative (Negative) 04/13/18 N.gonorrhoeae DNA (PCR) Negative (Negative) 04/13/18 Glucose 1 Hr 50 gm 154 mg/dL (70-140) H 08/13/18 Details: HIV: Urine Culture: Sequential Screen: NIPT Screen: Results [email or web address] Office Urine Glucose Negative Last Edit by Laurence Ceballos on 10/10/18 11:49 Office Urine Protein Negative Last Edit by Laurence Ceballos on 10/10/18 11:49 Assessment AND Plan Problems 1. ASCUS of cervix with negative high risk HPV R87.610 pap PP 2. 36 weeks gestation of Z3A.36 anatomy scan normal. 3. Encounter for supervision of normal first in third trimester Z34.03 JP 10/31/18 girl- surprise name Jamie (dtr Fran) 4. Abnormal glucose complicating puerperium O99.815 3 hr GTT normal 5. Encounter for management of intrauterine contraceptive device (IUD), unspecified IUD management type Z30.431 iud pp Plan movement and labor precautions reviewed. ACOG trimester education reviewed and updated. see problem list details for updated plan management information and see below for orders placed at this visit. [place] appropriate handout given. Orders Orders: Coding Level of Care Code OB Routine Diagnoses ASCUS of cervix with negative high risk HPV R87.610 36 weeks gestation of Z3A.36 Weeks of gestation: 36 weeks Encounter for supervision of normal first in third trimester Z34.03 Normal : normal first Trimester: third trimester Abnormal glucose complicating puerperium O99.815 Encounter for management of intrauterine contraceptive device (IUD), unspecified IUD management type Z30.431 Contraceptive encounter type: IUD management IUD management: unspecified 10/10/18 1233 <Electronically signed by Alix Nicole MD> Date Alix Nicole MD Cosigner Signature: Date (if applicable) CC: Observed: 10/10/2018 Status: F Source: [place] CULTURE, GROUP B 12:00 AM [facility] STREPTOCOCCUS REPOSITORY Comments: VAGINAL RECTAL CURT Culture Group B Beta Streptococcus is not isolated. Performed By: #### M100.1800 #### [facility] [address] [place], [address] MINE SUPERINTENDENT OFFICE VISIT Observed: 09/24/2018 Status: F Source: [place] REPORT 1:16 PM [facility] REPOSITORY [facility] 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 Is patient in pain?: No Allergies No Known Allergies Allergy (Verified 09/24/18 13:01) Medications omeprazole 40 mg capsule,delayed release 40 mg PO QDAY 05/14/18 [History Confirmed 09/24/18] vitamin,calcium,gupgazts-wjrd-jzoar acid tablet 1 tab PO QDAY 05/14/18 [History Confirmed 09/24/18] breast pump See Dose Instructions .ROUTE .MEDSUPPLY #1 ea 08/20/18 [Rx Confirmed 09/24/18] Last Menstral Period: 01/24/18 Zika: Zika virus screening: Negative : No PFSH PFSH Medical History GERD (gastroesophageal reflux disease) (Acute) H/O endoscopy (Acute) H/O wisdom tooth extraction (Acute) Ovarian cyst (Acute) Family History Mother Acid reflux Osteoporosis Acquired scoliosis Father Acid reflux Diverticula of intestine Sleep apnea Social History adopted: No household members: spouse housing: house number of children: 1 current occupational status: employed current occupation: [employer] current occupational exposures/hazards: No pets and animals: Yes Smoking Status: Current every day smoker second hand exposure: No alcohol intake: current alcohol intake frequency: other substance use type: does not use seatbelt use: always do you feel safe at home: Yes additional social history: Spouse- Jamie Step Dght- Raelah Pregancy History 1 Elective abortions Hx Para 0 Spontaneous abortions HPI 34 weeks: Details: CHARO ALVAREZ is a 28 year old who presents for routine OB visit. OB Visit JP Calculator Estimated Delivery Date 10/31/18 Based on LMP (certain) 01/24/18 Current WG 34w 5d Number 1 Expected Delivery Route/Plan Specific Issue/Plans flu vaccine:declined minichart given: given tdap vaccine: given rhogam: NA LARC form signed: declines labor support person: Jamie pain management: epidural cut cord/dad catch: maybe : yes PP control planned: IUD special requests: Initial Weight: 225 lb Date Weight BP Urine PrFHR FuHt Pres MoCTX DilationFetal StVisit NoProviderComments E ot v te GA G Effac lucose ed Visit Notes Visit Date: 09/24/18 Doing well. No VB, LOF. ALOK Maza on 09/24/18 Visit Date: 09/10/18 no vb lof good fm no regualr ctx Alix Nicole MD on 09/10/18 Visit Date: 08/27/18 no vb lof good fmno regualr ctx Alix Nicole MD on 08/27/18 Visit Date: 08/13/18 Doing well. NO VB, LOF ALOK Maza on 08/13/18 Visit Date: 07/17/18 no vb lof good fm reviewed anatomy us Alix Nicole MD on 07/17/18 Visit Date: 06/14/18 Doing well. Thinks feeling some movement. No vaginal bleeding or LOF since prior to last visit. ALOK Maza on 06/14/18 Visit Date: 05/14/18 had bleeding and brown discharge. JANICE Rico Nicole MD on 05/14/18 Diagnostics Diagnostics Labs Blood Type A POSITIVE 04/13/18 Hct 36.2 % (37-47) L 08/13/18 Hgb 12.0 g/dl (12.0-15.0) 08/13/18 Obstetrics Ultrasound 07/02/18 Rubella IgG Antibody 443.7 IU/mL 04/13/18 RPR NONREACTIVE (NONREACTIVE) 04/13/18 Hep Bs Antigen Negative (Negative) 04/13/18 Chlam trachomat DNA PCR Negative (Negative) 04/13/18 N.gonorrhoeae DNA (PCR) Negative (Negative) 04/13/18 Glucose 1 Hr 50 gm 154 mg/dL (70-140) H 08/13/18 Details: HIV: Urine Culture: Sequential Screen: NIPT Screen: Results [email or web address] Office Urine Glucose Negative Last Edit by Laurence Ceballos on 09/24/18 13:04 Office Urine Protein Negative Last Edit by Laurence Ceballos on 09/24/18 13:04 Assessment AND Plan Problems 1. Encounter for supervision of normal first in third trimester Z34.03 JP 10/31/18 girl- surprise name Jamie (dtr Fran) 2. 34 weeks gestation of Z3A.34 anatomy scan normal. 3. Encounter for management of intrauterine contraceptive device (IUD), unspecified IUD management type Z30.431 iud pp 4. BMI 39.0-39.9,adult Z68.39 Plan Orders placed: none Reviewed of labor precautions, movement/kick counts ACOG trimester education reviewed and updated See problem list details for updated plan of care Gestational age appropriate handout given RTO: 2 weeks Orders Orders: Coding Level of Care Code OB Routine Diagnoses Encounter for supervision of normal first in third trimester Z34.03 Normal : normal first Trimester: third trimester 34 weeks gestation of Z3A.34 Weeks of gestation: 34 weeks Encounter for management of intrauterine contraceptive device (IUD), unspecified IUD management type Z30.431 Contraceptive encounter type: IUD management IUD management: unspecified BMI 39.0-39.9,adult Z68.39 09/24/18 1316 <Electronically signed by Jeimy DICKINSON> Date Jeimy Denny [employer] SUPERVISOR-C Cosigner Signature: Date (if applicable) CC: MINE SUPERINTENDENT OFFICE VISIT Observed: 09/10/2018 Status: F Source: [place] REPORT 9:12 AM [facility] 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 Is patient in pain?: No Allergies No Known Allergies Allergy (Verified 09/10/18 08:49) Medications omeprazole 40 mg capsule,delayed release 40 mg PO QDAY 05/14/18 [History Confirmed 08/27/18] vitamin,calcium,uuwgqupv-onht-flymi acid tablet 1 tab PO QDAY 05/14/18 [History Confirmed 08/27/18] breast pump See Dose Instructions .ROUTE .MEDSUPPLY #1 ea 08/20/18 [Rx Confirmed 08/27/18] Last Menstral Period: 01/24/18 Zika: Zika virus screening: Negative : No PFSH PFSH Medical History GERD (gastroesophageal reflux disease) (Acute) H/O endoscopy (Acute) H/O wisdom tooth extraction (Acute) Ovarian cyst (Acute) Family History Mother Acid reflux Osteoporosis Acquired scoliosis Father Acid reflux Diverticula of intestine Sleep apnea Social History adopted: No household members: spouse housing: house number of children: 1 current occupational status: employed current occupation: [employer] current occupational exposures/hazards: No pets and animals: Yes Smoking Status: Current every day smoker second hand exposure: No alcohol intake: current alcohol intake frequency: other substance use type: does not use seatbelt use: always do you feel safe at home: Yes additional social history: Spouse- Jamie Step Dght- Raelah Pregancy History 1 Elective abortions Hx Para 0 Spontaneous abortions HPI 32 weeks: Details: CHARO ALVAREZ is a 28 year old who presents for routine OB visit. OB Visit JP Calculator Estimated Delivery Date 10/31/18 Based on LMP (certain) 01/24/18 Current WG 32w 5d Number 1 Expected Delivery Route/Plan Specific Issue/Plans flu vaccine:declined minichart given: given tdap vaccine: given rhogam: NA LARC form signed: declines labor support person: Jamie pain management: epidural cut cord/dad catch: maybe : yes PP control planned: IUD special requests: Initial Weight: 225 lb Date Weight BP Urine PrFHR FuHt Pres MoCTX DilationFetal StVisit NoProviderComments E ot v te [place] G Effac lucose ed Visit Notes Visit Date: 09/10/18 no vb lof good fm no regualr ctx Alix Nicole MD on 09/10/18 Visit Date: 08/27/18 no vb lof good fmno regualr ctx Alix Nicole MD on 08/27/18 Visit Date: 08/13/18 Doing well. NO VB, LOF ALOK Maza on 08/13/18 Visit Date: 07/17/18 no vb lof good fm reviewed anatomy us Alix Nicole MD on 07/17/18 Visit Date: 06/14/18 Doing well. Thinks feeling some movement. No vaginal bleeding or LOF since prior to last visit. ALOK Maza on 06/14/18 Visit Date: 05/14/18 had bleeding and brown discharge. JANICE Rico Nicole MD on 05/14/18 ACOG Second Trimester Second Trimester: Signs and Symptoms of Labor, Selecting a care provider, Reproductive Life Planning, Care Planning, Depression/Anxiety and Intimate Partner Violence; discussed Tobacco Cessation Diagnostics Diagnostics Labs Blood Type A POSITIVE 04/13/18 Hct 36.2 % (37-47) L 08/13/18 Hgb 12.0 g/dl (12.0-15.0) 08/13/18 Obstetrics Ultrasound 07/02/18 Rubella IgG Antibody 443.7 IU/mL 04/13/18 RPR NONREACTIVE (NONREACTIVE) 04/13/18 Hep Bs Antigen Negative (Negative) 04/13/18 Chlam trachomat DNA PCR Negative (Negative) 04/13/18 N.gonorrhoeae DNA (PCR) Negative (Negative) 04/13/18 Glucose 1 Hr 50 gm 154 mg/dL (70-140) H 08/13/18 Details: HIV: Urine Culture: Sequential Screen: NIPT Screen: Results [id number] Office Urine Glucose Negative Last Edit by Laurence Ceballos on 09/10/18 08:54 Office Urine Protein Negative Last Edit by Laurence Ceballos on 09/10/18 08:54 Assessment AND Plan Problems 1. BMI 39.0-39.9,adult Z68.39 2. ASCUS of cervix with negative high risk HPV R87.610 pap PP 3. 32 weeks gestation of Z3A.32 anatomy scan normal. 4. Encounter for supervision of normal first in third trimester Z34.03 JP 10/31/18 girl- surprise name Jamie (dtr Fran) 5. Abnormal glucose complicating puerperium O99.815 3 hr GTT normal 6. Encounter for management of intrauterine contraceptive device (IUD), unspecified IUD management type Z30.431 iud pp Plan movement and labor precautions reviewed. ACOG trimester education reviewed and updated. see problem list details for updated plan management information and see below for orders placed at this visit. [place] appropriate handout given. Orders Orders: Coding Level of Care Code OB Routine Diagnoses BMI 39.0-39.9,adult Z68.39 ASCUS of cervix with negative high risk HPV R87.610 32 weeks gestation of Z3A.32 Weeks of gestation: 32 weeks Encounter for supervision of normal first in third trimester Z34.03 Normal : normal first Trimester: third trimester Abnormal glucose complicating puerperium O99.815 Encounter for management of intrauterine contraceptive device (IUD), unspecified IUD management type Z30.431 Contraceptive encounter type: IUD management IUD management: unspecified 09/10/18 0912 <Electronically signed by Alix Nicole MD> Date [facility]ix [facility] Signature: Date (if applicable) CC: MINE SUPERINTENDENT OFFICE VISIT Observed: 08/27/2018 Status: F Source: [place] REPORT 9:17 AM [facility] 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 Is patient in pain?: No Allergies No Known Allergies Allergy (Verified 08/27/18 08:51) Medications omeprazole 40 mg capsule,delayed release 40 mg PO QDAY 05/14/18 [History Confirmed 08/27/18] vitamin,calcium,swfkdbde-pzlz-iqmmb acid tablet 1 tab PO QDAY 05/14/18 [History Confirmed 08/27/18] breast pump See Dose Instructions .ROUTE .MEDSUPPLY #1 ea 08/20/18 [Rx Confirmed 08/27/18] Last Menstral Period: 01/24/18 Zika: Zika virus screening: Negative : No PFSH PFSH Medical History GERD (gastroesophageal reflux disease) (Acute) H/O endoscopy (Acute) H/O wisdom tooth extraction (Acute) Ovarian cyst (Acute) Family History Mother Acid reflux Osteoporosis Acquired scoliosis Father Acid reflux Diverticula of intestine Sleep apnea Social History adopted: No household members: spouse housing: house number of children: 1 current occupational status: employed current occupation: [employer] current occupational exposures/hazards: No pets and animals: Yes Smoking Status: Current every day smoker second hand exposure: No alcohol intake: current alcohol intake frequency: other substance use type: does not use seatbelt use: always do you feel safe at home: Yes additional social history: Spouse- Jamie Step Dght- Raelah Pregancy History 1 Elective abortions Hx Para 0 Spontaneous abortions HPI 30 weeks: Details: CHARO ALVAREZ is a 28 year old who presents for routine OB visit. OB Visit JP Calculator Estimated Delivery Date 10/31/18 Based on LMP (certain) 01/24/18 Current WG 30w 5d Number 1 Expected Delivery Route/Plan Specific Issue/Plans flu vaccine:declined minichart given: given tdap vaccine: given rhogam: NA LARC form signed: declines labor support person: Jamie pain management: epidural cut cord/dad catch: maybe : yes PP control planned: IUD special requests: Initial Weight: 225 lb Date Weight BP Urine PFHR FuHt Pres MCTX DilatioFetal SVisit NProvideComment rot ov n t ote r s EGA Ef Gluco faced se 05/14/1227 lb 110/64 [id number] had ble 8 (+2 lb) e eding a 15 nd brow w 5d Negati n disch ve arge. JANICE Ryan ekos Visit Notes Visit Date: 08/27/18 no vb lof good fmno regualr ctx Alix Nicole MD on 08/27/18 Visit Date: 08/13/18 Doing well. NO VB, LOF Jeimy Denny NP-Gaurav on 08/13/18 Visit Date: 07/17/18 no vb lof good fm reviewed anatomy us Alix Nicole MD on 07/17/18 Visit Date: 06/14/18 Doing well. Thinks feeling some movement. No vaginal bleeding or LOF since prior to last visit. ALOK Maza on 06/14/18 Visit Date: 05/14/18 had bleeding and brown discharge. JANICE Benekos Alix Nicole MD on 05/14/18 ACOG Second Trimester Second Trimester: Signs and Symptoms of Labor, Selecting a care provider, Reproductive Life Planning (iud), Care Planning (16 weeks paid, home service consultant), Depression/Anxiety and Intimate Partner Violence; discussed Tobacco Cessation Diagnostics Diagnostics Labs Blood Type A POSITIVE 04/13/18 Hct 36.2 % (37-47) L 08/13/18 Hgb 12.0 g/dl (12.0-15.0) 08/13/18 Obstetrics Ultrasound 07/02/18 Rubella IgG Antibody 443.7 IU/mL 04/13/18 RPR NONREACTIVE (NONREACTIVE) 04/13/18 Hep Bs Antigen Negative (Negative) 04/13/18 Chlam trachomat DNA PCR Negative (Negative) 04/13/18 N.gonorrhoeae DNA (PCR) Negative (Negative) 04/13/18 Glucose 1 Hr 50 gm 154 mg/dL (70-140) H 08/13/18 Details: HIV: Urine Culture: Sequential Screen: NIPT Screen: Results [id number] Office Urine Glucose Negative Last Edit by Tara Starr on 08/27/18 08:55 Office Urine Protein Negative Last Edit by Tara Starr on 08/27/18 08:55 Assessment AND Plan Problems 1. BMI 39.0-39.9,adult Z68.39 2. ASCUS of cervix with negative high risk HPV R87.610 pap PP 3. 30 weeks gestation of Z3A.30 anatomy scan normal. 4. Encounter for supervision of normal first in third trimester Z34.03 JP 10/31/18 girl- surprise name Jamie (dtr Fran) 5. Encounter for management of intrauterine contraceptive device (IUD), unspecified IUD management type Z30.431 iud pp 6. Abnormal glucose complicating puerperium O99.815 3 hr GTT normal Plan movement and labor precautions reviewed. ACOG trimester education reviewed and updated. see problem list details for updated plan management information and see below for orders placed at this visit. GA appropriate handout given. 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 Y TYPE CODE TESTS RESULT OUT OF RANGE REFERENCE UNITS LAB L501.0650 <105 mg/dL Normal GLU 84 GTT-FASTING Result Comment: GLUCOSE TOLERANCE TEST FOR Reference Interval GESTATIONAL DIABETES Fasting <105 mg/dL 1 hour <190 mg/dl 2 hour <165 mg/dl 3 hour <145 mg/dl LAB L501.0660 <190 mg/dL Normal GLU GTT- 1HR 164 LAB L501.0670 <165 mg/dL Normal GLU GTT- 2HR 152 LAB L501.0680 <145 L Normal GLU GTT- 3HR 72 Performed By: #### L500.4710 #### [facility] [address] [place], [place], [address] CBC W/DIFF, AUTOMATED Collected: 08/13/2018 Status: F Source: RADHA 10:17 AM [facility] REPOSITORY TYPE CODE TESTS RESULT OUT OF RANGE REFERENCE UNITS LAB L100.1000 4.4-11.0 K/mm3 High WBC 11.7 LAB L100.1200 4.2-5.4 M/mm3 Normal RBC 4.39 LAB L100.1300 12.0-15.0 g/dl Normal HGB 12.0 LAB L100.1400 37-47 % Low HCT 36.2 LAB L100.1500 81-99 fL Normal MCV 82.5 LAB L100.1600 27.0-32.0 pg Normal MCH 27.3 LAB L100.1700 32-36 g/gl Normal MCHC 33.1 LAB L100.1810 11.6-14.6 % Normal RDW CV 14.2 LAB L100.1820 35.1-43.9 fl Normal RDW SD 42.6 LAB L100.1900 150-450 K/mm3 Normal PLT 243 LAB L100.2000 6.2-12.0 fl Normal MPV 9.0 LAB L100.2100 47-70 % High NEUT% 82.9 LAB L100.2200 19-41 % Low LY% 12.6 LAB L100.2300 0-10 % Normal MONO% 4.1 LAB L100.2400 0-5 % Normal EO% 0.2 LAB L100.2500 0-1 % Normal BASO% 0.1 LAB L100.2550 0.0-0.9 % Normal IM GRAN % 0.100 Result Comment: IG% - Immature Granulocytes (promyelocytes, myelocytes and metamyelocytes) > 1% indicates that a LEFT SHIFT is Present. LAB L100.2620 2.0-7.7 X10 3/uL High Absolute Neut 9.7 LAB L100.2720 0.83-4.51 X10 3/ul Normal Absolute Lymph 1.47 Performed By: #### L100.0100 #### [facility] [address] [place], [address] GLUCOSE CHALLENGE GEST Collected: 08/13/2018 Status: F Source: RADHA 1H 50G 10:17 AM [facility] REPOSITORY TYPE CODE TESTS RESULT OUT OF RANGE REFERENCE UNITS LAB L501.0250 70-140 mg/dL High GLU GEST 154 50g 1H Performed By: #### L501.0250 #### [facility] [address] [place], [address] MINE SUPERINTENDENT OFFICE VISIT Observed: 08/13/2018 Status: F Source: RADHA REPORT 9:48 AM [facility] REPOSITORY [facility] 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 Is patient in pain?: No Allergies No Known Allergies Allergy (Verified 08/13/18 09:16) Medications omeprazole 40 mg capsule,delayed release 40 mg PO QDAY 05/14/18 [History Confirmed 08/13/18] vitamin,calcium,pojsswzc-pctu-qqrjj acid tablet 1 tab PO QDAY 05/14/18 [History Confirmed 08/13/18] breast pump See Dose Instructions .ROUTE .MEDSUPPLY #1 ea 08/13/18 [Rx Confirmed 08/13/18] Last Menstral Period: 01/24/18 Zika: Zika virus screening: Negative : No PFSH PFSH Medical History GERD (gastroesophageal reflux disease) (Acute) H/O endoscopy (Acute) Ovarian cyst (Acute) Surgical History H/O wisdom tooth extraction (Acute) Family History Mother Acid reflux Osteoporosis Acquired scoliosis Father Acid reflux Diverticula of intestine Sleep apnea Social History adopted: No household members: spouse housing: house number of children: 1 current occupational status: employed current occupation: [employer] current occupational exposures/hazards: No pets and animals: Yes Smoking Status: Current every day smoker second hand exposure: No alcohol intake: current alcohol intake frequency: other substance use type: does not use seatbelt use: always do you feel safe at home: Yes additional social history: Spouse- Jamie Step Dght- Raelah Pregancy History 1 Elective abortions Hx Para 0 Spontaneous abortions HPI 28 weeks: Details: CHARO ALVAREZ is a 28 year old who presents for routine OB visit. OB Visit JP Calculator Estimated Delivery Date 10/31/18 Based on LMP (certain) 01/24/18 Current WG 28w 5d Number 1 Expected Delivery Route/Plan Specific Issue/Plans flu vaccine: [] minichart given: given tdap vaccine: given rhogam: NA LARC form signed: declines labor support person: Jamie pain management: epidural cut cord/dad catch: maybe : yes PP control planned: IUD special requests: [] Initial Weight: 225 lb Date Weight BP Urine PrFHR FuHt Pres MoCTX DilationFetal StVisit NoProviderComments E ot v te [place] G Effac lucose ed Visit Notes Visit Date: 08/13/18 Doing well. NO VB, LOF ALOK Maza on 08/13/18 Visit Date: 07/17/18 no vb lof good fm reviewed anatomy us Alix Nicole MD on 07/17/18 Visit Date: 06/14/18 Doing well. Thinks feeling some movement. No vaginal bleeding or LOF since prior to last visit. ALOK Maza on 06/14/18 Visit Date: 05/14/18 had bleeding and brown discharge. JANICE [facility] Alix Nicole MD on 05/14/18 Diagnostics Diagnostics Labs Blood Type A POSITIVE 04/13/18 Hct 37.6 % (37-47) 04/13/18 Hgb 12.9 g/dl (12.0-15.0) 04/13/18 Obstetrics Ultrasound 07/02/18 Rubella IgG Antibody 443.7 IU/mL 06/01/18 RPR NONREACTIVE (NONREACTIVE) 04/13/18 Hep Bs Antigen Negative (Negative) 04/13/18 Chlam trachomat DNA PCR Negative (Negative) 04/13/18 N.gonorrhoeae DNA (PCR) Negative (Negative) 04/13/18 Details: HIV: Urine Culture: Sequential Screen: NIPT Screen: Results [id number] Office Urine Glucose Negative Last Edit by Laurence Ceballos on 08/13/18 09:19 Office Urine Protein Negative Last Edit by Laurence Ceballos on 08/13/18 09:19 Immunizations Boostrix Tdap Performing Provider: ALOK Maza Administered by: Laurence Ceballos on 08/13/18 09:45 Dose Route Admin Location Lot Number Expiration Date [employer] 0.5 mL IM Left Arm (SQ) [id number] 10/01/24 39837-786-85 [employer] VIS Given Date VIS Publication Date 08/13/18 01/06/15 Eligibility Eligibility Date Assessment AND Plan Problems 1. Encounter for supervision of normal first in second trimester Z34.02 JP 10/31/18 girl- surprise name Jamie (dtleonila Peters) 2. 28 weeks gestation of Z3A.28 anatomy scan normal. 3. Encounter for management of intrauterine contraceptive device (IUD), unspecified IUD management type Z30.431 4. ASCUS of cervix with negative high risk HPV R87.610 pap PP 5. BMI 39.0-39.9,adult Z68.39 Plan Orders placed: tdap Plans mirena IUD pp Reviewed of labor precautions, movement/kick counts ACOG trimester education reviewed and updated See problem list details for updated plan of care Gestational age appropriate handout given RTO: 2 weeks Orders Orders: Medications New: Discontinued: Boostrix Tdap (diphth,pertus(acell),tetanus) Discontinued 0.5 mL IM ONCE #1 0RF NS Z23 Reason: Office Medication has been Documented as given Coding Level of Care Code OB Routine Diagnoses Encounter for supervision of normal first in second trimester Z34.02 Normal : normal first Trimester: second trimester 28 weeks gestation of Z3A.28 Weeks of gestation: 28 weeks Encounter for management of intrauterine contraceptive device (IUD), unspecified IUD management type Z30.431 Contraceptive encounter type: IUD management IUD management: unspecified ASCUS of cervix with negative high risk HPV R87.610 BMI 39.0-39.9,adult Z68.39 08/13/18 0948 <Electronically signed by Jeimy DICKINSON> Date Jeimy DICKINSON Cosigner Signature: Date (if applicable) CC: MINE SUPERINTENDENT OFFICE VISIT Observed: 07/17/2018 Status: F Source: RADHA REPORT 2:10 PM [facility] [address] [place] [address] OFFICE VISIT Date of Service: 07/17/18 MR#: [id number] Acct: [id number] Name: CHARO ALVAREZ Rep #: [id number] : 1990 Provider: Alix Nicole MD Age/Sex: 28/F Location: [facility] [place] [place] Status: Signed Intake Vital Signs07/17/18 Height 5 ft 4 in 07/17/18 Weight: 240 lb 4 oz 07/17/18 Body Mass Index (BMI) 41.2 07/17/18 Blood Pressure 108/70 Intake Visit Reasons: 24 weeks 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 Is patient in pain?: No Allergies No Known Allergies Allergy (Verified 07/17/18 13:45) Medications omeprazole 40 mg capsule,delayed release 40 mg PO QDAY 05/14/18 [History Confirmed 07/17/18] vitamin,calcium,yrynksfo-hbso-mojvi acid tablet 1 tab PO QDAY 05/14/18 [History Confirmed 07/17/18] Last Menstral Period: 01/24/18 Zika: Zika virus screening: Negative : No PFSH PFSH Medical History GERD (gastroesophageal reflux disease) (Acute) H/O endoscopy (Acute) Ovarian cyst (Acute) Surgical History H/O wisdom tooth extraction (Acute) Family History Mother Acid reflux Osteoporosis Acquired scoliosis Father Acid reflux Diverticula of intestine Sleep apnea Social History adopted: No household members: spouse housing: house number of children: 1 current occupational status: employed current occupation: [employer] current occupational exposures/hazards: No pets and animals: Yes Smoking Status: Current every day smoker second hand exposure: No alcohol intake: current alcohol intake frequency: other substance use type: does not use seatbelt use: always do you feel safe at home: Yes additional social history: Spouse- Jamie Step Dght- Raelah Pregancy History 1 Elective abortions Hx Para 0 Spontaneous abortions HPI 24 weeks: Details: CHARO ALVAREZ is a 28 year old who presents for routine OB visit. OB Visit JP Calculator Estimated Delivery Date 10/31/18 Based on LMP (certain) 01/24/18 Current WG 24w 6d Number 1 Expected Delivery Route/Plan Specific Issue/Plans flu vaccine: [] minichart given: given tdap vaccine: [] rhogam: NA LARC form signed: [] labor support person: Jamie pain management: epidural cut cord/dad catch: maybe : yes PP control planned: [] special requests: [] Initial Weight: 225 lb Date Weight BP Urine PrFHR FuHt Pres MoCTX DilationFetal StVisit NoProviderComments E ot v te GA G Effac lucose ed Visit Notes Visit Date: 07/17/18 no vb lof good fm reviewed anatomy us Alix Nicole MD on 07/17/18 Visit Date: 06/14/18 Doing well. Thinks feeling some movement. No vaginal bleeding or LOF since prior to last visit. Jeimy Denny NP-Gaurav on 06/14/18 Visit Date: 05/14/18 had bleeding and brown discharge. JANICE Rico Nicole MD on 05/14/18 Diagnostics Diagnostics Labs Blood Type A POSITIVE 04/13/18 Hct 37.6 % (37-47) 06/01/18 Hgb 12.9 g/dl (12.0-15.0) 04/13/18 Obstetrics Ultrasound 07/02/18 Rubella IgG Antibody 443.7 IU/mL 04/13/18 RPR NONREACTIVE (NONREACTIVE) 04/13/18 Hep Bs Antigen Negative (Negative) 04/13/18 Chlam trachomat DNA PCR Negative (Negative) 04/13/18 N.gonorrhoeae DNA (PCR) Negative (Negative) 04/13/18 Details: HIV: Urine Culture: Sequential Screen: NIPT Screen: Results [id number] Office Urine Glucose Negative Last Edit by Laurence Ceballos on 07/17/18 13:53 Office Urine Protein Negative Last Edit by Laurence Ceballos on 07/17/18 13:53 Assessment AND Plan Problems 1. ASCUS of cervix with negative high risk HPV R87.610 pap PP 2. Encounter for supervision of normal first in second trimester Z34.02 JP 10/31/18 girl- surprise name Jamie (dtr Fran) 3. BMI 39.0-39.9,adult Z68.39 4. 25 weeks gestation of Z3A.25 anatomy scan normal. Plan ACOG trimester education reviewed and updated. see problem list details for updated plan management information and see below for orders placed at this visit. GA appropriate handout given. Orders Orders: Coding Level of Care Code OB Routine Diagnoses ASCUS of cervix with negative high risk HPV R87.610 Encounter for supervision of normal first in second trimester Z34.02 Normal : normal first Trimester: second trimester BMI 39.0-39.9,adult Z68.39 25 weeks gestation of Z3A.25 Weeks of gestation: 25 weeks 07/17/18 1410 <Electronically signed by Alix Nicole MD> Date Alix Nicole MD Cosigner Signature: Date (if applicable) CC: OB LIMITED (NO Observed: 07/02/2018 Status: F Source: ANTWERP BIOMETRICS) 8:48 AM [facility] REPOSITORY [facility] Imaging Services [address] [place] [address] OB Limited (No Biometrics) MR#: [id number] Acct: [id number] Name: CHARO ALVAREZ Rep #: [id number] : 1990 F 27 From: Darnell Barth MD PCP: Care Physician, No Primary Status: REG CLI Study: OB Limited (No Biometrics) Date of Exam: 07/02/18 Exam# [id number] Ordering Dr: Jeimy Denny [employer] DEPARTMENT SUPERVISORMervin STUDY: SECOND AND THIRD TRIMESTER OBSTETRICAL ULTRASOUND REASON FOR EXAM: Female, 27 years old. Follow-up anatomy. Follow up examination from June 09, 2018 due to limited views. LMP: January 24, 2018. TECHNIQUE: Transabdominal. Study is limited due to the patient's body habitus. PRIOR ULTRASOUND: None. FINDINGS: There is a single intrauterine fetus. The fetus is in a transverse lie with the head on the maternal right side. There is demonstrated cardiac activity with a heart rate of 149 bpm. There is a normal amniotic fluid volume. The largest amniotic fluid pocket measures 5.8 cm x 4.1 cm. The amniotic fluid index (ERIC) is normal. The placenta is anterior in location and is not low lying. There are Grade 0 placental changes. The cervix measures 5.1 cm in length. The adnexal regions are not visualized. age by prior US: 22 weeks, 6 days. JP by prior US: October 30, 2018. Age by LMP: 22 weeks, 5 days. JP by LMP: October 31, 2018. ANATOMY: Gender: Female Cranium: Normal lateral ventricles. Normal choroid plexus. Normal cerebellum. Normal cisterna magna. Normal face, nose and lips. Chest: Normal 4-chamber heart. Abdomen/Pelvis: Normal diaphragm. Normal stomach. Normal abdominal wall. Normal cord insertion. Normal 3 vessel cord. Normal kidneys. Normal bladder. Spine: Normal cervical spine. Normal thoracic spine. Normal lumbar spine. Normal sacrum. Extremities: Normal bilateral upper extremities. US/OB Limited (No Biometrics) IMPRESSION: Single live intrauterine gestation with mean gestational age of 22 weeks and 6 days. Electronically Signed: Darnell Barth MD at 9:24 EDT Tel [phone], Service support , CC: MAURILIO Denny; No Primary Care Physician President Financial Institution: Signed Observed: 06/14/2018 Status: F Source: ANTWERP CULTURE, URINE 4:56 PM [facility] REPOSITORY Urine Culture Below infection level. Yeast present. ORGANISM 1: Mixed Gram Positive Organisms [place] Count 1000-10,000 Performed By: #### M100.0650 #### [facility] [address] [place], [address] MINE SUPERINTENDENT OFFICE VISIT Observed: 06/14/2018 Status: F Source: ANTWERP REPORT 8:52 AM [facility] REPOSITORY [facility] 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 Is patient in pain?: No Allergies No Known Allergies Allergy (Verified 06/14/18 08:27) Medications omeprazole 40 mg capsule,delayed release 40 mg PO QDAY 05/14/18 [History Confirmed 06/14/18] vitamin,calcium,fgusnkar-ddpx-qysbs acid tablet 1 tab PO QDAY 05/14/18 [History Confirmed 05/14/18] Last Menstral Period: 01/24/18 Zika: Zika virus screening: Negative : No PFSH PFSH Medical History GERD (gastroesophageal reflux disease) (Acute) H/O endoscopy (Acute) Ovarian cyst (Acute) Surgical History H/O wisdom tooth extraction (Acute) Family History Mother Acid reflux Osteoporosis Acquired scoliosis Father Acid reflux Diverticula of intestine Sleep apnea Social History adopted: No household members: spouse housing: house number of children: 1 current occupational status: employed current occupation: [employer] current occupational exposures/hazards: No pets and animals: Yes Smoking Status: Current every day smoker second hand exposure: No alcohol intake: current alcohol intake frequency: other substance use type: does not use seatbelt use: always do you feel safe at home: Yes additional social history: Spouse- Jamie Step Dght- Raelah Pregancy History 1 Elective abortions Hx Para 0 Spontaneous abortions HPI OB Routine 19w6d: Details: CHARO ALVAREZ is a 27 year old who presents for routine OB visit. OB Visit JP Calculator Estimated Delivery Date 10/31/18 Based on LMP (certain) 01/24/18 Current WG 20w 1d Number 1 Expected Delivery Route/Plan Specific Issue/Plans flu vaccine: [] minichart given: given tdap vaccine: [] rhogam: NA LARC form signed: [] labor support person: Jamie pain management: epidural cut cord/dad catch: maybe : yes PP control planned: [] special requests: [] Initial Weight: 225 lb Date Weight BP Urine PrFHR FuHt Pres MoCTX DilationFetal StVisit NoProviderComments E ot v te [place] G Effac lucose ed Visit Notes Visit Date: 06/14/18 Doing well. Thinks feeling some movement. No vaginal bleeding or LOF since prior to last visit. Jeimy Denny NP-Gaurav on 06/14/18 Visit Date: 05/14/18 had bleeding and brown discharge. JANICE Rico Nicole MD on 05/14/18 Diagnostics Diagnostics Labs Blood Type A POSITIVE 04/13/18 Hct 37.6 % (37-47) 04/13/18 Hgb 12.9 g/dl (12.0-15.0) 04/13/18 Obstetrics Ultrasound 06/09/18 Rubella IgG Antibody 443.7 IU/mL 04/13/18 RPR NONREACTIVE (NONREACTIVE) 04/13/18 Hep Bs Antigen Negative (Negative) 04/13/18 Chlam trachomat DNA PCR Negative (Negative) 04/13/18 N.gonorrhoeae DNA (PCR) Negative (Negative) 04/13/18 Details: HIV: Urine Culture: Sequential Screen: NIPT Screen: Results [id number] Office Urine Glucose Negative Last Edit by Laurence Ceballos on 06/14/18 08:33 Office Urine Protein Negative Last Edit by Laurence Ceballos on 06/14/18 08:33 Assessment AND Plan Problems 1. Encounter for supervision of normal first in second trimester Z34.02 JP 10/31/18 Jamie (dtr Fran) 2. BMI 39.0-39.9,adult Z68.39 3. ASCUS of cervix with negative high risk HPV R87.610 4. 20 weeks gestation of Z3A.20 Plan Orders placed: Repeat anatomy US in 4 weeks to complete heart anatomy Reviewed of labor precautions, movement/kick counts ACOG trimester education reviewed and updated See problem list details for updated plan of care Gestational age appropriate handout given RTO: 4 weeks Orders Orders: Coding Level of Care Code OB Routine Diagnoses Encounter for supervision of normal first in second trimester Z34.02 Normal : normal first Trimester: second trimester BMI 39.0-39.9,adult Z68.39 ASCUS of cervix with negative high risk HPV R87.610 20 weeks gestation of Z3A.20 06/14/18 0852 <Electronically signed by Jeimy DICKINSON> Date Jeimy DICKINSON Cosigner Signature: Date (if applicable) CC: OB ANATOMY SCAN Observed: 06/09/2018 Status: F Source: RADHA 9:20 AM [facility] REPOSITORY [facility] Imaging Services [address] [place] [address] OB Anatomy Scan MR#: [id number] Acct: [id number] Name: CHARO ALVAREZ Rep #: [id number] : 1990 F 27 From: John Lopez MD PCP: Care Physician, No Primary Status: REG CLI Study: OB Anatomy Scan Date of Exam: 06/09/18 Exam# [id number] Ordering Dr: Alix Nicole MD STUDY: SECOND AND THIRD TRIMESTER OBSTETRICAL ULTRASOUND REASON FOR EXAM: Female, 27 years old. Routine survey. LMP: 01/24/2018 TECHNIQUE: Transabdominal PRIOR ULTRASOUND: None. FINDINGS: There is a single intrauterine fetus. The fetus is in a breech presentation. There is demonstrated cardiac activity with a heart rate of 140 bpm. There is a normal amniotic fluid volume. The largest amniotic fluid pocket measures 10.2 cm. The placenta is anterior and low lying but not previa in location. There are Grade 0 placental changes. The cervix is closed. BIOMETRY: BPD: 4.3: 19 weeks, 0 days HC: 16.4: 19 weeks, 2 days AC: 14.3: 19 weeks, 5 days FL: 3.2: 20 weeks, 0 days CI: FL/BPD: FL/HC: FL/AC: HC/AC: age by current US: 19 weeks, 4 days. JP by current US: 10/30/2018. Estimated weight: 307 grams, +/- 45 grams, 61 %. age by prior US: weeks, days. JP by prior US: . Age by LMP: 19 weeks, 3 days. JP by LMP: 10/31/2018. ANATOMY: Gender: Female Cranium: Normal lateral ventricles. Normal choroid plexus. Normal cerebellum. Normal cisterna magna. Normal face, nose and lips. Chest: The heart is not adequately visualized. Abdomen/Pelvis: Normal diaphragm. Normal stomach. Normal abdominal wall. Normal cord insertion. Normal 3 vessel cord. Normal kidneys. Normal bladder. Spine: Normal cervical spine. Normal thoracic spine. Normal lumbar spine. Sacrum is not adequately visualized. Extremities: Normal bilateral upper extremities. Normal bilateral lower extremities. US/OB Anatomy Scan IMPRESSION: Single live fetus in a breech presentation. No demonstrated anatomic abnormality, however some structures not adequately seen as above. Placenta is grade 0 and is not low-lying. Cervix is closed. age by current US: 19 weeks, 4 days. JP by current US: 10/30/2018. Estimated weight: 307 grams, +/- 45 grams, 61 %. Electronically Signed: John Lopez MD at 23:54 EDT , Service support , CC: No Primary Care Physician; Alix Nicole MD President Financial Institution: Signed MINE SUPERINTENDENT OFFICE VISIT Observed: 05/14/2018 Status: F Source: RADHA REPORT 9:35 AM [facility] [facility] [address] [place] [address]. [address] [place] [address] OFFICE VISIT Date of Service: 05/14/18 MR#: [id number] Acct: [id number] Name: CHARO ALVAREZ Rep #: [id number] : 1990 Provider: Alix Nicole MD Age/Sex: 27/F Location: [facility] [place], [place] Status: Signed Intake Vital Signs05/14/18 Height 5 ft 4 in 05/14/18 Weight: 227 lb 05/14/18 Body Mass Index (BMI) 38.9 05/14/18 Blood Pressure 110/64 Intake Visit Reasons: 15 WEEK TRANSFER FROM [facility] [employer] Farm[employer] Required: No Accompanied by: self Is patient in pain?: No Allergies No Known Allergies Allergy (Unverified 05/14/18 09:01) Medications omeprazole 40 mg capsule,delayed release 40 mg PO QDAY 05/14/18 [History Confirmed 05/14/18] vitamin,calcium,pqsfbydz-oyif-vekwx acid tablet 1 tab PO QDAY 05/14/18 [History Confirmed 05/14/18] Last Menstral Period: 01/24/18 Zika: Zika virus screening: Negative : No PFSH PFSH Medical History GERD (gastroesophageal reflux disease) (Acute) H/O endoscopy (Acute) Ovarian cyst (Acute) Surgical History H/O wisdom tooth extraction (Acute) Family History Mother Acid reflux Osteoporosis Acquired scoliosis Father Acid reflux Diverticula of intestine Sleep apnea Social History adopted: No household members: spouse housing: house number of children: 1 current occupational status: employed current occupation: [employer] current occupational exposures/hazards: No pets and animals: Yes Smoking Status: Current every day smoker second hand exposure: No alcohol intake: current alcohol intake frequency: other substance use type: does not use seatbelt use: always do you feel safe at home: Yes additional social history: Spouse- Jamie Step Dght- Raelah Pregancy History 1 Elective abortions Hx Para 0 Spontaneous abortions HPI 15 WEEK TRANSFER FROM [facility] DISCHARGE: Details: CHARO ALVAREZ is a 27 year old who presents for routine OB visit. she has had some spotting for the last week OB Visit JP Calculator Estimated Delivery Date 10/31/18 Based on LMP (certain) 01/24/18 Current WG 15w 5d Number 1 Initial Weight: 225 lb Date Weight BP Urine PrFHR FuHt Pres MoCTX DilationFetal StVisit NoProviderComments E ot v te GA G Effac lucose ed Visit Notes Visit Date: 05/14/18 had bleeding and brown discharge. JANICE Rico Nicole MD on 05/14/18 Diagnostics Diagnostics Labs Blood Type A POSITIVE 04/13/18 Hct 37.6 % (37-47) 04/13/18 Hgb 12.9 g/dl (12.0-15.0) 04/13/18 Rubella IgG Antibody 443.7 IU/mL 04/13/18 RPR NONREACTIVE (NONREACTIVE) 04/13/18 Hep Bs Antigen Negative (Negative) 04/13/18 Chlam trachomat DNA PCR Negative (Negative) 04/13/18 N.gonorrhoeae DNA (PCR) Negative (Negative) 04/13/18 Details: HIV: Urine Culture: Sequential Screen: NIPT Screen: Results BMSUA2 Office Urine Glucose Negative Last Edit by Tara Starr on 05/14/18 09:15 Office Urine Protein Negative Last Edit by Tara Starr on 05/14/18 09:15 Assessment AND Plan Problems 1. Encounter for supervision of normal first in second trimester Z34.02 JP 10/31/18 Jamie (dtr Fran) 2. BMI 39.0-39.9,adult Z68.39 Plan Orders placed: anatomy us ACOG trimester education reviewed and updated. see problem list details for updated plan management information. GA appropriate handout given. Orders Orders: Coding Level of Care Code OB Routine Diagnoses Encounter for supervision of normal first in second trimester Z34.02 Normal : normal first Trimester: second trimester BMI 39.0-39.9,adult Z68.39 05/14/18 0935 <Electronically signed by Alix Nicole MD> Date Alix Nicole MD Cosign Signature: Date (if applicable) CC: URINE DRUG SCREEN Collected: 04/13/2018 Status: F Source: RADHA (VISTA) 1:56 PM [facility] REPOSITORY Order Comment: List of Drugs Taken or Suspected? UNK TYPE CODE TESTS RESULT OUT OF RANGE REFERENCE UNITS LAB L505.0075 TO BE Normal CONFIRMED Result Comment: CONFIRMATORY TESTING FOR ALL POSITIVE URINE DRUG SCREEN RESULTS WILL ONLY BE SENT OUT UPON PHYSICIAN ORDER. VISTA Urine Drug Screen methods provide only preliminary analytical test results. A more specific alternate chemical method must be used in order to obtain a confirmed analytical result. Gas chromatography/mass spectrometery (GC/MS) is the preferred confirmatory method. Clinical consideration and professional judgement should be applied to any drug of abuse test result, particularly when preliminary positive results are used. URINE TCA TESTING MUST BE ORDERED SEPARATELY. USE TEST MNEMONIC: UTCA LAB L505.5005 VISTA UDS PH 7 Normal LAB L505.5015 <1000 ng/mL AMPHETAMINES Normal NEGATIVE LAB L505.5025 < 200 ng/mL BARBITIURATES Normal NEGATIVE LAB L505.5035 < 200 ng/mL BENZODIAZIPINE Normal NEGATIVE LAB L505.5045 < 300 ng/mL COCAINE Normal NEGATIVE LAB L505.5055 < 500 ng/mL ECSTACY Normal NEGATIVE LAB L505.5065 < 300 ng/mL METHADONE Normal NEGATIVE LAB L505.5075 < 300 ng/mL OPIATES Normal NEGATIVE LAB L505.5085 < 25 ng/mL PCP Normal NEGATIVE LAB L505.5095 < 50 ng/mL THC Normal NEGATIVE Performed By: #### L505.5000 #### [facility] [address] [place], [address] CBC W/DIFF, AUTOMATED Collected: 04/13/2018 Status: F Source: ANTWERP 1:56 PM [facility] [place] REPOSITORY TYPE CODE TESTS RESULT OUT OF RANGE REFERENCE UNITS LAB L100.1000 4.4-11.0 K/mm3 Normal WBC 10.0 LAB L100.1200 4.2-5.4 M/mm3 Normal RBC 4.70 LAB L100.1300 12.0-15.0 g/dl Normal HGB 12.9 LAB L100.1400 37-47 % Normal HCT 37.6 LAB L100.1500 81-99 fL Low MCV 80.0 LAB L100.1600 27.0-32.0 pg Normal MCH 27.4 LAB L100.1700 32-36 g/gl Normal MCHC 34.3 LAB L100.1810 11.6-14.6 % Normal RDW CV 13.3 LAB L100.1820 35.1-43.9 fl Normal RDW SD 38.8 LAB L100.1900 150-450 K/mm3 Normal PLT 290 LAB L100.2000 6.2-12.0 fl Normal MPV 8.8 LAB L100.2100 47-70 % High NEUT% 72.1 LAB L100.2200 19-41 % Normal LY% 20.8 LAB L100.2300 0-10 % Normal MONO% 6.7 LAB L100.2400 0-5 % Normal EO% 0.2 LAB L100.2500 0-1 % Normal BASO% 0.1 LAB L100.2550 0.0-0.9 % Normal IM GRAN % 0.100 Result Comment: IG% - Immature Granulocytes (promyelocytes, myelocytes and metamyelocytes) > 1% indicates that a LEFT SHIFT is Present. LAB L100.2620 2.0-7.7 X10 3/uL Normal Absolute Neut 7.2 LAB L100.2720 0.83-4.51 X10 3/ul Normal Absolute Lymph 2.08 Performed By: #### L100.0100 #### [facility] [address] [place], [place], [id number] URINALYSIS, ROUTINE Collected: 04/13/2018 Status: F Source: RADHA (DIPSTICK) 1:56 PM [facility] REPOSITORY Order Comment: How was Urine Obtained? Urine, Random TYPE CODE TESTS RESULT OUT OF RANGE REFERENCE UNITS LAB L400.3000 Yellow COLOR Normal Yellow LAB L400.3050 Clear Normal CLARITY Clear LAB L400.3200 Normal mg/dl Normal GLUCOSE, UR Normal LAB L400.3300 Negative mg/dL Normal BILIRUBIN URINE Negative LAB L400.3400 Negative mg/dl High KETONE UR 150 Result Comment: CRITICAL VALUE *H CRITICAL VALUE VERIFIED. CALLED TO LINDA GRIFFITHS 04/13/18 [facility] [place]. RESULTS READ BACK BY LINDA . LAB L400.3465 1.002-1.030 Normal SP.GR. DIPSTX 1.010 LAB L400.3550 5.0 - 8.0 pH Normal UR 7.0 LAB L400.3600 Negative mg/dl Normal PROT DIPSTX Negative LAB L400.3700 Normal mg/dl Normal UROBILI Normal LAB L400.3750 Negative Normal NITRITE UR Negative LAB L400.3780 Negative /ul Normal OCCULT Negative BLOOD-UR LAB L400.3800 Negative /ul High LEUK ESTERASE 500 Performed By: #### L400.2010 #### [facility] [address] [place], [place], [address] THYROID STIM HORMONE Collected: 04/13/2018 Status: F Source: RADHA (TSH) 1:56 PM [facility] REPOSITORY TYPE CODE TESTS RESULT OUT OF RANGE REFERENCE UNITS LAB L501.9520 0.358-3.74 uIU/mL Normal TSH 1.79 Performed By: #### L501.9520 #### [facility] [address] [facility]. [place], [place], [address] RUBELLA IGG Collected: 04/13/2018 Status: F Source: RADHA 1:56 PM [facility] REPOSITORY TYPE CODE TESTS RESULT OUT OF RANGE REFERENCE UNITS LAB L509.4000 IU/mL Normal Rubella IgG 443.7 Result Comment: Antibody results Interpretation of Immune Status < 5 IU/ml Presumed Non-immune 5 - < 10 IU/ml Equivocal > or = 10 IU/ml Presumed Immune Performed By: #### L509.4000, L3890.6005 #### [facility] [facility]. [place], [place], [id number] HIV - WCH Collected: 04/13/2018 Status: F Source: RADHA 1:56 PM [facility] REPOSITORY TYPE CODE TESTS RESULT OUT OF RANGE REFERENCE UNITS LAB L3890.6005 Nonreactive Normal HIV - WCH Non-Reactive Performed By: #### L509.4000, L3890.6005 #### [facility] [address] [place] [address]. [place], [place], [id number] T AND S-NO Collected: 04/13/2018 Status: F Source: RADHA CHARGE W/PNP 1:56 PM [facility] REPOSITORY Order Comment: Reason for Type AND Screen/Red Cells: Surgery? N TYPE CODE TESTS RESULT OUT OF RANGE REFERENCE UNITS LAB B10.0800 A Normal BLOOD POSITIVE TYPE GEL LAB B100.4050 Normal Ab SCREEN NEGATIVE GEL Performed By: #### B100.7550 #### [facility] [facility]. [place], [place], [id number] HEPATITIS B SURFACE Collected: 04/13/2018 Status: F Source: RADHA AG 1:56 PM [facility] REPOSITORY TYPE CODE TESTS RESULT OUT OF RANGE REFERENCE UNITS LAB L3100.0400 Negative Normal HB Negative SURF AG Result Comment: Performed at: [address] [id number] Timber Buyer: Narayan Abdullahi PhD, Phone: [phone] Performed By: #### L3100.0390, L3100.0625 #### [facility] (refer to report for specific site) refer to report for address and phone number HEPATITIS C ANTIBODIES Collected: 04/13/2018 Status: F Source: ANTWERP 1:56 PM [facility] REPOSITORY TYPE CODE TESTS RESULT OUT OF RANGE REFERENCE UNITS LAB L3100.0650 0.0-0.9 s/co ratio Normal HEP C AB <0.1 Result Comment: Negative: < 0.8 Indeterminate: 0.8 - 0.9 Positive: > 0.9 The CDC recommends that a positive HCV antibody result be followed up with a HCV Nucleic Acid Amplification test (155171). Performed By: #### L3100.0390, L3100.0625 #### [facility] (refer to report for specific site) refer to report for address and phone number RPR Collected: 04/13/2018 Status: F Source: ANTWERP 1:56 PM [facility] REPOSITORY TYPE CODE TESTS RESULT OUT OF REFERENCE UNITS RANGE LAB L700.5100 NONREACTIVE Normal RPR NONREACTIVE Performed By: #### L700.5100 #### [facility] [address] [place], [address] CT/NG WCH BY PCR Collected: 04/13/2018 Status: F Source: ANTWERP 1:50 PM [facility] REPOSITORY TYPE CODE TESTS RESULT OUT OF RANGE REFERENCE UNITS LAB L8200.2100 Negative Normal Chlam Negative Trac PCR LAB L8200.2200 Negative Normal NG by Negative PCR Performed By: #### L8200.2000 #### [facility] [address] [place], [address] HCG TITER QUANT., Collected: 03/13/2018 Status: F Source: ANTWERP SERUM 5:41 PM [facility] REPOSITORY TYPE CODE TESTS RESULT OUT OF RANGE REFERENCE UNITS LAB L700.8000 <9 non-preg mIU/mL High HCG 56083 QUANT. Performed By: #### L700.8000 #### [facility] [address] [place], [address] ALLERGIES ALLERGIES DATE TYPE / CODE NAME / CODE REACTION SEVERITY SOURCE 10/15/2018 Drug No Known Unknown [place] [facility] Allergy/4160 Allergies/F00 Hospital 35284(SNOMED 0137132(RXNOR Repository CT) M) ENCOUNTERS ENCOUNTERS ADMIT/DISCHARGE ACCOUNT ADMITTING ENCOUNTER LOCATION SOURCE NUMBER CLASS 10/31/2018 [id number] Bonnie, Ambulatory [place] [facility] [facility] ing:WP Repository 10/26/2018/ [id number] Ambulatory [place] Radha 8 2 [facility] ing:WPOUTRoom Repository : WPOLRM 10/19/2018 [id number] Ambulatory [place] Radha 5 [facility] ing:US Repository 10/18/2018/ [id number] Bonnie, Inpatient Radha Radha 8 5 Alix Encounter [facility] ing:WPRoom: Repository [id number]: 1 10/18/2018 [id number] Bonnie, Ambulatory BMSBuilding:B [place] 8 [place] MS.CF.[facility] Repository 10/18/2018 [id number] Bonnie, Ambulatory BMSBuilding:B [place] 3 [place] MS..[facility] Repository 10/18/2018 [id number] Bonnie, Ambulatory BMSBuilding:B Radha 1 [place] MS.CF.[facility] Repository 10/18/2018 [id number] Bonnie, Ambulatory BMSBuilding:B [place] 6 [place] MS.CF.[facility] Repository 10/15/2018/ [id number] Ambulatory BMSBuilding:B Radha 8 9 [place].[facility] Repository 10/10/2018 [id number] Ambulatory [place] Radha 9 [facility] ing:LABSPEC Repository 10/10/2018/ [id number] Ambulatory BMSBuilding:B [place] 8 7 [place].[facility] Repository 09/24/2018/ [id number] Ambulatory BMSBuilding:B Radha 8 7 [facility] Repository 09/10/2018/ [id number] Ambulatory BMSBuilding:B [place] 8 7 [place].[facility] Hospital Repository 08/27/2018/ [id number] Ambulatory BMSBuilding:B [place] 8 5 [facility] Hospital Repository 08/20/2018 [id number] Ambulatory [place] Radha 9 [facility] ing:LAB Repository 08/13/2018 [id number] Ambulatory [place] Radha 1 [facility] ing:LAB Repository 08/13/2018/ [id number] Ambulatory BMSBuilding:B [place] 8 3 [place].[facility] Hospital Repository 07/17/2018/ [id number] Ambulatory BMSBuilding:B Radha 8 1 [place].[facility] Hospital Repository 07/02/2018 [id number] Ambulatory [place] 6 [facility] ing:OPUS Repository 06/14/2018 [id number] Ambulatory Radha Radha 7 [facility] ing:LABSPEC Repository 06/14/2018/ [id number] Ambulatory BMSBuilding:B Radha 8 4 [place].[facility] Hospital Repository 06/09/2018 [id number] Ambulatory Radha [place] 2 [facility] ing:US Repository 05/14/2018/ [id number] Ambulatory BMSBuilding:B [place] 8 9 [place].[facility] Hospital Repository 04/13/2018 [id number] Ambulatory BMS Radha 3 [facility] Hospital Repository 04/13/2018 [id number] Ambulatory [place] 3 [facility] ing:LABSPEC Repository 03/13/2018 [id number] Ambulatory Radha Radha 4 [facility] ing:LAB.FUTUR Repository E PAYERS PAYERS ENCOUNTER GUARANTOR PAYER SUBSCRIBER SOURCE 10/31/2018 CHARO Hoffman Primary CHARO [id number] Insurance:[facility]: [facility] PAUL y Number: [id number] Hospital [id number] Repository , [place] [address]Ncj: brenda Date:8914-32-90YY [facility] 829969NZFVDLD, [place] [facility] [address]HQ: 10/31/2018 Secondary NOT GIVENUNK [place] Insurance:SELF PAY [facility] Number: Effective Repository Date:2018-09-26 10/26/2018 CHARO R Primary CHARO R [place] [id number] Insurance:ANTHEMPolic CARPENTERDOB: Community MILLER y Number: [id number] Hospital [id number] Repository , [place] [address]Qsa: brenda Date:5398-52-41PC [address] [facility] [address]VM: 10/26/2018 Secondary NOT GIVENUNK [place] Insurance:SELF PAY [facility] Number: Effective Repository Date:2018-10-26 10/19/2018 CHARO R Primary CHARO R [place] [id number] Insurance:ANTHEMPolic CARPENTERDOB: Community MILLER y Number: [id number] Health [facility] - [id number] Repository , [place] [address]Ude: brenda Date:5794-65-51JU [address], [facility]) [address]ZE: 10/19/2018 Secondary NOT GIVENUNK Radha Insurance:SELF PAY [facility] Number: Effective Repository Date:2018-10-16 10/18/2018 CHARO R Primary CHARO R [place] [id number] Insurance:ANTHEMPolic CARPENTERDOB: Community MILLER y Number: [id number] Health [facility] - [id number] Repository , [place] [address]Pcf: brenda Date:7522-24-96[address]DUUHQEB, [facility]) [address]SR: 10/18/2018 Secondary NOT GIVENUNK [place] Insurance:SELF PAY [facility] Number: Effective Repository Date:2018-10-18 10/18/2018 CHARO R Primary CHARO R Radha [id number] Insurance:ANTHEMPolic CARPENTERDOB: Community MILLER y Number: [id number] Health Blue Ridge - [id number] Repository , [place] [address]Mmn: brenda Date:9831-98-61[address]PDQOIOHQUINTON GARCIA () [address]KL: 10/18/2018 Secondary NOT GIVENUNK [place] Insurance:SELF PAY [facility] Number: Effective Repository Date:2018-10-18 10/18/2018 CHARO R Primary CHARO R Radha [id number] Insurance:ANTHEMPolic CARPENTERDOB: Community MILLER y Number: [id number] Hospital [id number] Repository , [place] [address]Rgw: brenda Date:3431-78-12PU [address] () [address]RC: 10/18/2018 Secondary NOT GIVENUNK Radha Insurance:SELF PAY [facility] Number: Effective Repository Date:2018-10-18 10/18/2018 CHARO R Primary CHARO R [place] [id number] Insurance:ANTHEMPolic CARPENTERDOB: Community MILLER y Number: [id number] [place] [id number] Repository , [place] [address]Txd: brenda Date:3775-80-33CU [address]RKGWTXSQUINTON GARCIA () [address]VL: 10/18/2018 Secondary NOT GIVENUNK [place] Insurance:SELF PAY [facility] Number: Effective Repository Date:2018-10-18 10/18/2018 CHARO R Primary CHARO R [place] [id number] Insurance:ANTHEMPolic CARPENTERDOB: Community MILLER y Number: [id number] Health Blue Ridge - [id number] Repository , [place] [address]Hnx: brenda Date:2333-91-89[address]ZHYCGJAQUINTON GARCIA () [address]OV: 10/18/2018 Secondary NOT GIVENUNK [place] Insurance:SELF PAY [facility] Number: Effective Repository Date:2018-10-18 10/15/2018 CHARO R Primary CHARO R [place] [id number] Insurance:ANTHEMPolic CARPENTERDOB: Community MILLER y Number: [id number] Hospital [id number] Repository , [place] [address]Blt: brenda Date:0202-08-66UC [address] () [address]AE: 10/15/2018 Secondary NOT GIVENUNK [place] Insurance:SELF PAY [facility] Number: Effective Repository Date:2018-08-30 10/10/2018 CHARO R Primary CHARO R Radha [id number] Insurance:ANTHEMPolic CARPENTERDOB: Community MILLER y Number: [id number] Hospital [id number] Repository , [place] [address]Soo: brenda Date:6996-54-01IG [address] () [address]YM: 10/10/2018 Secondary NOT GIVENUNK Radha Insurance:SELF PAY [facility] Number: Effective Repository Date:2018-10-10 10/10/2018 CHARO R Primary CHARO R [place] [id number] Insurance:ANTHEMPolic CARPENTERDOB: Community MILLER y Number: [id number] Hospital [id number] Repository , [place] [address]Ivs: brenda Date:0233-47-99SJ [address] () [address]NK: 10/10/2018 Secondary NOT GIVENUNK [place] Insurance:SELF PAY [facility] Number: Effective Repository Date:2018-10-10 09/24/2018 CHARO R Primary CHARO R [place] [id number] Insurance:ANTHEMPolic CARPENTERDOB: Community MILLER y Number: [id number] Hospital [id number] Repository , [place] [address]Ckj: brenda Date:9391-50-40XW [address] () [address]NC: 09/24/2018 Secondary NOT GIVENUNK [place] Insurance:SELF PAY [facility] Number: Effective Repository Date:2018-09-24 09/10/2018 CHARO R Primary CHARO R [place] [id number] Insurance:ANTHEMPolic CARPENTERDOB: Community MILLER y Number: [id number] Hospital [id number] Repository , [place] [address]Jvw: brenda Date:1286-24-04FU [address] () [address]RR: 09/10/2018 Secondary NOT GIVENUNK Radha Insurance:SELF PAY [facility] Number: Effective Repository Date:2018-09-10 08/27/2018 CHARO R Primary CHARO R Radha [id number] Insurance:ANTHEMPolic CARPENTERDOB: Community MILLER y Number: [id number] Hospital [id number] Repository , [place] [address]Pjs: brenda Date:1967-26-53YC [address] () [address]KQ: 08/27/2018 Secondary NOT GIVENUNK [place] Insurance:SELF PAY [facility] Number: Effective Repository Date:2018-08-27 08/20/2018 CHARO R Primary CHARO R Radha [id number] Insurance:ANTHEMPolic CARPENTERDOB: Community MILLER y Number: [id number] Hospital [id number] Repository , [place] [address]Jpf: brenda Date:6087-68-76VC [address] () [address]XS: 08/20/2018 Secondary NOT GIVENUNK Radha Insurance:SELF PAY [facility] Number: Effective Repository Date:2018-08-14 08/13/2018 CHARO R Primary CHARO R [place] [id number] Insurance:ANTHEMPolic CARPENTERDOB: Community MILLER y Number: [id number] Hospital [id number] Repository , [place] [address]Tql: brenda Date:5901-30-02QA [address] () [address]GW: 08/13/2018 Secondary NOT GIVENUNK [place] Insurance:SELF PAY [facility] Number: Effective Repository Date:2018-08-13 08/13/2018 CHARO IVANNA Primary CHARO IVANNA Radha [id number] Insurance:ANTHEMPolic CARPENTERDOB: Community MILLER y Number: [id number] Hospital [id number] Repository , [place] [address]Wfl: brenda Date:1633-89-48XG [address]JLVRVKS, [place] () [address]BY: 08/13/2018 Secondary NOT GIVENUNK [place] Insurance:SELF PAY [facility] Number: Effective Repository Date:2018-08-13 07/17/2018 CHARO IVANNA Primary CHARO IVANNA Radha [id number] Insurance:ANTHEMPolic CARPENTERDOB: Community MILLER y Number: [id number] Hospital [id number] Repository , [place] [address]Ldc: brenda Date:4523-25-48NF [address]RKOQLRS, [place] () [address]KM: 07/17/2018 Secondary NOT GIVENUNK Radha Insurance:SELF PAY [facility] Number: Effective Repository Date:2018-07-10 07/02/2018 CHARO IVANNA Primary CHARO IVANNA [place] [id number] Insurance:ANTHEMPolic CARPENTERDOB: Community MILLER y Number: [id number] Hospital [id number] Repository , [place] [address]Hnz: brenda Date:8434-06-64FC [address]VZMWKGQ, [place] () [address]BV: 07/02/2018 Secondary NOT GIVENUNK [place] Insurance:SELF PAY [facility] Number: Effective Repository Date:2018-06-14 06/14/2018 CHARO IVANNA Primary CHARO IVANNA Radha [id number] Insurance:ANTHEMPolic CARPENTERDOB: [facility] MILLER y Number: [id number] Health Blue Ridge - [id number] Repository , [place] [address]Mfi: brenda Date:6512-08-39DQ [address] () [address]QM: 06/14/2018 Secondary NOT GIVENUNK [place] Insurance:SELF PAY [facility] Number: Effective Repository Date:2018-06-14 06/14/2018 CHARO IVANNA Primary CHARO IVANNA [place] [id number] Insurance:ANTHEMPolic CARPENTERDOB: Community MILLER y Number: [id number] Hospital [id number] Repository , [place] [address]Lbu: brenda Date:7897-38-67XD [address] () [address]AX: 06/14/2018 Secondary NOT GIVENUNK Radha Insurance:SELF PAY [facility] Number: Effective Repository Date:2018-06-14 06/09/2018 CHARO IVANNA Primary CHARO IVANNA [place] [id number] Insurance:ANTHEMPolic CARPENTERDOB: Community MILLER y Number: [id number] Health Blue Ridge - [id number] Repository , [place] [address]Ndf: brenda Date:8366-13-60NN [address] () [address]VV: 06/09/2018 Secondary NOT GIVENUNK [place] Insurance:SELF PAY [facility] Number: Effective Repository Date:2018-05-14 05/14/2018 CHARO IVANNA Primary CHARO IVANNA [place] [id number] Insurance:ANTHEMPolic CARPENTERDOB: Community MILLER y Number: [id number] [id number] Repository , [place] [address]Jvn: brenda Date:3792-58-03[address] () [address]JI: 05/14/2018 Secondary NOT GIVENUNK [place] Insurance:SELF PAY [facility] Number: Effective Repository Date:2018-05-14 04/13/2018 CHARO IVANNA Primary CHARO IVANNA [place] [id number] Insurance:ANTHEMPolic CARPENTERDOB: Community MILLER y Number: [id number] [id number] Repository , [place] [address]Vrm: brenda Date:8079-47-88[address]RUDUQIUQUINTON GARCIA () [id number]: 04/13/2018 Secondary NOT GIVENUNK [place] Insurance:SELF PAY [facility] Number: Effective Repository Date:2018-04-13 04/13/2018 CHARO IVANNA Primary CHARO IVANNA [place] [id number] Insurance:ANTHEMPolic CARPENTERDOB: Community MILLER y Number: [id number] [id number] Repository , [place] [address]Kjy: brenda Date:2658-40-85[address]YRE, [place] () [address]UW: 04/13/2018 Secondary NOT GIVENUNK [place] Insurance:SELF PAY [facility] Number: Effective Repository Date:2018-04-13 03/13/2018 CHARO IVANNA Primary CHARO IVANNA [place] [id number] Insurance:ANTHEMPolic CARPENTERDOB: Community PAUL y Number: [id number] [facility] [id number] Repository , [place] [address]Tet: brenda Date:5713-22-39X[address]WIRFBLF, [place] () [address]TQ: 03/13/2018 Secondary NOT GIVENUNK [place] Insurance:SELF PAY [facility] Number: Effective Repository Date:2018-03-13
== END ==
PROVIDERS: Referring Provider Obstetrics & Gynecology; Visit Provider Obstetrics & Gynecology
DX: Z34.90 Encounter for supervision of normal pregnancy, unspecified, unspecified trimester (principal)
CPT/HCPCS: 87081

== ENCOUNTER 2018-10-18 18:00 | Inpatient (IN) | payer BC, SELFPAY ==
[2018-10-15 08:41] VITALS: BMI 42.9
[2018-10-18 18:30] VITALS: BMI 43.9
[2018-10-18 19:08] LABS: ROM Internal Control Test YES-OK TO RESULT pt. (Internal QC)
[2018-10-18 19:09] LABS: ROM Patient Test POSITIVE (Negative)
[2018-10-18] MEDS: Lactated Ringers 1,000 ML 50 ML IV ×2 (19:25→23:24)
[2018-10-18 20:01] LABS: Hematocrit 36.2 % (37-47); Hemoglobin 12.2 g/dl (12.0-15.0); Mean Corp Hgb Conc 33.7 g/gl (32-36); Mean Corpuscular Hgb 27.1 pg (27.0-32.0); Mean Corpuscular Volume 80.4 fL (81-99); Mean Platelet Vol. 9.4 fl (6.2-12.0); Platelet Count 255 K/mm3 (150-450); RBC Distribution Width CV 14.3 % (11.6-14.6); RBC Distribution Width SD 41.6 fl (35.1-43.9); White Blood Count 12.4 K/mm3 (4.4-11.0)
[2018-10-18 20:02] LABS: Scan Indicated on CBC? Y/N NO
--- NOTE | 2018-10-18 20:21 | HP.PCM_ITS ---
- Problem List (1) PROM (premature rupture of membranes) Status: Acute (2) Obesity affecting Status: Acute Comment: nl 1 tm glucola, discussed healthy weight gain (3) Unspecified contraceptive management Status: Acute Qualifiers: Comment: iud pp (4) Abnormal glucose complicating puerperium Status: Acute Comment: 3 hr GTT normal (5) Unspecified contraceptive management Status: Acute Comment: Mirena IUD pp (6) Status: Acute Qualifiers: Comment: anatomy scan normal. (7) ASCUS of cervix with negative high risk HPV Status: Acute Comment: pap PP (8) Supervision of normal Status: Acute Qualifiers: Comment: JP 10/31/18 girl- surprise name Bryant (dtr Fran) History Date of Admission: 10/18/18 Final JP: 10/30/18 Gestational age: 38 Weeks and 2 Days History of this : This is a 28 year-old, at 38 weeks gestational agE with clear LOF this afternoon at work. she denies any fevers or vb, admits good fm. she has had an uncomplicated Medical History: Medical History (Last Reviewed 10/15/18 @ 08:41 by Raquel Hackett) GERD (gastroesophageal reflux disease) K21.9 H/O endoscopy Z98.890 H/O wisdom tooth extraction K08.409 Ovarian cyst N83.209 Allergies No Known Allergies Allergy (Verified 10/15/18 08:40) Home Medications: Home Medications omeprazole 40 mg capsule,delayed release 40 mg PO QDAY 05/14/18 vitamin,calcium,bhadpbrz-ugcb-oedzb acid tablet 1 tab PO QDAY 05/14/18 breast pump See Dose Instructions .ROUTE .MEDSUPPLY #1 ea 08/20/18 Smoking Status: Former smoker Alcohol: None Number of Fetus(es): 1 Heart Tracin-160 moderate variability reactive no decels cat I tracing TOCO Analysis: no regular History Past Pregnancies: Past Pregnancies Delivery Date Name GA/Weeks Outcome Route Weight Infant Gender Labor Length Anesthesia Delivery Location Provider FOB Labs: Mom's Labs & Results 10/18/18 10/18/18 10/18/18 18:25 19:37 19:37 WBC 12.4 H RBC 4.50 Hgb 12.2 Hct 36.2 L MCV 80.4 L MCH 27.1 MCHC 33.7 RDW 14.3 RDW Differential 41.6 Plt Count 255 MPV 9.4 Vag Amniotic Fld Detect POSITIVE H Blood Type Pending Antibody Screen Pending Course Did the patient receive Yes care? Labs Blood Type: A RH: POSITIVE RPR/VDRL/Syphilis Nonreactive Rubella status Immune HbSAg Negative Date Done: 04/13/18 Chlamydia Negative Gonorrhea Negative HIV/AIDS Non-Reactive Group B Strep: Negative Current Obstetrical History Gestational Diabetes No Incompetent Cervix No Infertility No IUGR No Macrosomia No Hypertension/Pre-eclampsia No Placenta Previa/Abruption No PTL/PROM No Uterine anomaly No Oligohydramnios No Polyhydramnios No Multiple gestation No Past Medical History Asthma No Diabetes No Hypertension No Heart disease No Mitral valve prolapse No Neurologic/Seizure disorder/ No Migraines Kidney disease No Liver disease No Varicosities No Clotting disorders/Hx of DVT No Thyroid Dysfunction No Other medical diseases Yes: GERD Psychiatric disorders No Major trauma No Abnormal PAP smear No Sleep apnea No Mammogram in the last 2 years No Social History Marital Status: Alleged father Bryant Hx Smoking Yes Smoking Status Former smoker Expected Infant Delivery Method: Spontaneous Vaginal Describe any other labor & delivery plans:: Pregancy History. 1 Elective abortions. Hx Para 0 Spontaneous abortions. Hx # Term Pregnancies Ectopic pregnancies. Hx # Pregnancies Multiple births. # of living children. HPI. OB Visit. JP Calculator. Estimated Delivery Date 10/31/18. Based on LMP (certain) 01/24/18. Current WG 37w 5d. Number 1. Expected Delivery Route/Plan. . Specific Issue/Plans. flu vaccine:declined. minichart given: given. tdap vaccine: given. rhogam: NA. LARC form signed: declines. labor support person: Bryant. pain management: epidural. cut cord/dad catch: maybe. : yes. PP control planned: IUD. special requests: Review of Systems Constitutional: Denies: Fever, Malaise Eyes: Denies: Blurred vision, Vision Change HEENT: Denies: Head Aches, Visual Changes Cardiovascular: Denies: Chest Pain, Palpitations Respiratory: Denies: Cough, Shortness of Breath, Wheezing Gastrointestinal: Denies: Abdominal Pain, Diarrhea, Nausea, Vomiting Genitourinary: Denies: Dysuria, Hematuria Musculoskeletal: Denies: Joint Pain, Muscle pain Skin: Denies: Lesions, Rash Neurological: Denies: Blurred vision, Focal weakness, Headaches Psychiatric: Denies: Anxiety, Depression Endocrine: Denies: Heat/ Cold Intolerance Hematologic/ Lymphatic: Denies: Easy Bruising, Easy Bleeding Physical Exam General: Alert, Cooperative, No apparent distress HEENT: Atraumatic, Normocephalic. Negative for: Thyromegaly, Lymphadenopathy Cardiovascular: Regular rate Lungs: Normal air movement Abdomen: Soft, Non Tender, Gravid Neurological: Deep Tendon Reflexes 2+/4 and Symmetrical, Neuro grossly intact. Negative for: Clonus DEMI CHEF: Normal external genitalia. Negative for: Vulvar lesions Estimated gestational size: Appropriate for gestational size Presentation: Cephalic Cervix Dilation (cm): 3 Assessment/Plan All Active Problems (Last Reviewed 10/15/18 @ 08:41 by Raquel Hackett) PROM (premature rupture of membranes) (Acute) Obesity affecting (Acute) Unspecified contraceptive management (Acute) Abnormal glucose complicating puerperium (Acute) Unspecified contraceptive management (Acute) (Acute) ASCUS of cervix with negative high risk HPV (Acute) Supervision of normal (Acute) BMI 39.0-39.9,adult (Resolved) This is a 28 year-old, , at 38 weeks gestational age presents with PROM Patient presents PROM, plan expectant management for , pitocin per protocol for limited contractions. Pain management: plans epidural GBS negative. Management of any complications: none I have reviewed the [facility] and made any clinically relevant updates.
[2018-10-18] MEDS: Oxytocin 30 units/NS 500 ml 30 UNITS/500 ML IV.SOLN IV (20:31)
[2018-10-18] MEDS: fentaNYL-bupivacaine (epidural) 100 ML BAG EPIDURAL (22:30)
--- NOTE | 2018-10-19 04:28 | PCM.PN.BLA ---
Progress Note fht 165s-170s moderate variability reactive no decels cat II tracing, reassuring, patient pushing well.
--- NOTE | 2018-10-19 04:29 | PCM.OB.VAG ---
- Problem List (1) PROM (premature rupture of membranes) Status: Acute (2) Obesity affecting Status: Acute Comment: nl 1 tm glucola, discussed healthy weight gain (3) Unspecified contraceptive management Status: Acute Qualifiers: Comment: iud pp (4) Abnormal glucose complicating puerperium Status: Acute Comment: 3 hr GTT normal (5) Unspecified contraceptive management Status: Acute Comment: Mirena IUD pp (6) Status: Acute Qualifiers: Comment: anatomy scan normal. (7) ASCUS of cervix with negative high risk HPV Status: Acute Comment: pap PP (8) Supervision of normal Status: Acute Qualifiers: Comment: JP 10/31/18 girl- surprise name Bryant (dtr Fran) Vaginal Delivery Maternal Presentation: Spontaneous Rupture of Membranes 28 yo presents IAL srom clear fluid. started on pitocin due to minimal contractions Method of Induction: Pitocin Amniotic Membrane Rupture Type: Spontaneous at home Amniotic Fluid Description: Clear Final JP: 10/30/18 Gestational age: 38 Weeks and 3 Days Date of Procedure: 10/19/18 Pre-Operative Diagnosis: PROM Post-Operative Diagnosis: same Surgery/ Procedure Performed: Spontaneous Vaginal Delivery Type of Anesthesia: Epidural Description of Procedure: Patient began pushing and delivered the head in the JOSE presentation. The head was delivered atraumatically. The shoulders came down transversely and then spontaneously rotated to the right shoulder being anterior. The anterior and posterior shoulders delivered without complication followed by the rest of the infant and the infant was placed on the maternal abdomen. Delayed cord clamping was employed for approximately 60 seconds. Cord was clamped and cut and gentle traction was applied to the cord and the placenta delivered spontaneously immediately following it was noted to be intact with three-vessel cord. The perineum and vagina were inspected and noted to have a small first-degree perineal laceration was repaired in the usual fashion with 3-0 Vicryl repeat. EBL was 100 cc. Patient and infant tolerated delivery well. Presentation: JOSE Placental Delivery Description: Spontaneous Placenta Disposition: [facility] Cord Vessel Description: 3 Vessels Cord Entanglement: None Estimated Blood Loss: 100 A gender: Female Episiotomy Description: None Laceration: Perineal Extension/lac, 1st degree Medications given after delivery: IV Pitocin Complications: None
[2018-10-19] MEDS: Oxytocin 30 units/NS 500 ml 30 UNITS/500 ML IV.SOLN 334 UNITS IV (05:12)
--- NOTE | 2018-10-19 05:24 | DCINST_ITS ---
Discharge Diet: No Restrictions Discharge Activity: Return to Normal Activity, May not drive while taking narcotic pain medications., May Shower May resume sexual activity in: 4-6 weeks Call your doctor if your incision/area has: Continuous Slow Oozing, Sudden Increased Bleeding, Increased Pain/ Swelling, Increased Redness, Foul Smelling Discharge Additional Instructions: If you experience any of the following, contact your healthcare provider. * Bleeding that soaks a pad every hour for 2 hours * Fever 100.4 or higher * Unrelieved incision or abdominal pain * Swelling, redness, discharge or bleeding from your incision or episiotomy site * Your incision begins to separate * Problems urinating (including inability to urinate or burning while urinating). * Visual changes * Severe headache * Flu-like symptoms * Pain or redness in one of both of your breasts * Pain, warmth, tenderness or swelling in your legs, especially the calf area * Frequent nausea and vomiting * Symptoms of depression or anxiety If you experience any of the following, call 911 or go to the nearest Emergency Room. * Chest pain * Problems breathing * Seizure activity * Partial or complete paralysis of a body part, slurred speech, weakness or drooping of the face, or a sudden inability to walk or hold your balance Allergies/Adverse Reactions: Allergies No Known Allergies Allergy (Verified 10/15/18 08:40) Medications to take at Discharge omeprazole 40 mg capsule,delayed release 40 mg PO QDAY 05/14/18 vitamin,calcium,npvllfew-ckus-yqddt acid tablet 1 tab PO QDAY 05/14/18 breast pump See Dose Instructions .ROUTE .MEDSUPPLY #1 ea 08/20/18 Please Follow Up With: Alix Nicole MD - [phone] When: Call to make an appointment with your doctor in 6 weeks. If you had elevated Blood pressure or 4th degree laceration you will need to be seen in 2 weeks. Primary Care Physician: Care Physician,No Primary [Primary Care Provider] - Test Results: Test results from this visit will be discussed in further detail at your follow- up appointment, if applicable.
--- NOTE | 2018-10-19 05:24 | PCM.DCVAG ---
Discharge Diet: No Restrictions Discharge Activity: Return to Normal Activity, May not drive while taking narcotic pain medications., May Shower May resume sexual activity in: 4-6 weeks Call your doctor if your incision/area has: Continuous Slow Oozing, Sudden Increased Bleeding, Increased Pain/ Swelling, Increased Redness, Foul Smelling Discharge Additional Instructions: If you experience any of the following, contact your healthcare provider. Bleeding that soaks a pad every hour for 2 hours Fever 100.4 or higher Unrelieved incision or abdominal pain Swelling, redness, discharge or bleeding from your incision or episiotomy site Your incision begins to separate Problems urinating (including inability to urinate or burning while urinating). Visual changes Severe headache Flu-like symptoms Pain or redness in one of both of your breasts Pain, warmth, tenderness or swelling in your legs, especially the calf area Frequent nausea and vomiting Symptoms of depression or anxiety If you experience any of the following, call 911 or go to the nearest Emergency Room. Chest pain Problems breathing Seizure activity Partial or complete paralysis of a body part, slurred speech, weakness or drooping of the face, or a sudden inability to walk or hold your balance Allergies/Adverse Reactions: Allergies No Known Allergies Allergy (Verified 10/15/18 08:40) Medications to take at Discharge omeprazole 40 mg capsule,delayed release 40 mg PO QDAY 05/14/18 vitamin,calcium,hranxfgf-xpwj-tpkzu acid tablet 1 tab PO QDAY 05/14/18 breast pump See Dose Instructions .ROUTE .MEDSUPPLY #1 ea 08/20/18 Please Follow Up With: Alix Nicole MD - [phone] When: Call to make an appointment with your doctor in 6 weeks. If you had elevated Blood pressure or 4th degree laceration you will need to be seen in 2 weeks. Primary Care Physician: Care Physician,No Primary [Primary Care Provider] - Test Results: Test results from this visit will be discussed in further detail at your follow-up appointment, if applicable.
[2018-10-19] MEDS: Oxytocin 30 units/NS 500 ml 30 UNITS/500 ML IV.SOLN 167 UNITS IV (05:42)
[2018-10-19] MEDS: 0.9% Saline Lock 10 ML Syringe IV (07:06)
[2018-10-19 07:10] VITALS: BP 99/58; PULSE 90; RESP 18; TEMP 37.1
[2018-10-19] MEDS: Naproxen 250 MG Tablet PO (08:35)
[2018-10-19 13:00] VITALS: BP 97/56; PULSE 90; RESP 20; TEMP 36.4
[2018-10-19 16:00] VITALS: BP 107/73; PULSE 96; RESP 16; TEMP 36.7
[2018-10-19 19:51] VITALS: BP 108/59; PULSE 97; RESP 18; TEMP 36.8; O2SAT 98
[2018-10-20 00:11] VITALS: BP 120/57; PULSE 76; RESP 18; TEMP 37.6; O2SAT 97
[2018-10-20 04:15] VITALS: BP 112/62; PULSE 81; RESP 18; TEMP 36.6; O2SAT 98
--- NOTE | 2018-10-20 09:58 | PCM.PN.OB ---
Patient Problems: Active and Suspected Problems (Last Reviewed 10/15/18 @ 08:41 by Raquel Hackett) PROM (premature rupture of membranes) (Acute) Subjective: doing well no complaints denies any significant pain - Physical Exam General: Alert, Oriented x3 Vital Signs Temp Pulse Resp BP Pulse Ox 97.9 F 81 18 112/62 98 10/20/18 04:15 10/20/18 04:15 10/20/18 04:15 10/20/18 04:15 10/20/18 04:15 Oxygen Delivery Method Room Air Weight: 256 lb 2.834 oz Body Mass Index (BMI) 43.9 Intake and Output for Last 24 Hours 10/18/18 10/19/18 10/20/18 23:59 23:59 23:59 Intake Total 2970 / 2970 Output Total 200 / 200 1050 / 1050 Balance -200 / -200 1920 / 1920 Medical Necessity - Tobacco Use Smoking Status: Former smoker Assessment/Plan All Active Problems (Last Reviewed 10/15/18 @ 08:41 by Raquel Hackett) PROM (premature rupture of membranes) (Acute) Obesity affecting (Acute) Unspecified contraceptive management (Acute) Abnormal glucose complicating puerperium (Acute) Unspecified contraceptive management (Acute) (Acute) ASCUS of cervix with negative high risk HPV (Acute) Supervision of normal (Acute) BMI 39.0-39.9,adult (Resolved) s/p PPD # 1 1. routine post delivery care 2. breast feeding- support given 3. rh positive 4. rubella immune
[2018-10-20 10:00] VITALS: BP 109/58; PULSE 85; RESP 16; TEMP 36.6
[2018-10-20 16:00] VITALS: BP 97/60; PULSE 86; RESP 16; TEMP 37.1
[2018-10-20 19:23] VITALS: BP 122/59; PULSE 85; RESP 17; TEMP 36.9; O2SAT 97
[2018-10-20] MEDS: Naproxen 250 MG Tablet PO (20:51)
[2018-10-21 02:24] VITALS: BP 108/53; PULSE 68; RESP 17; TEMP 36.7; O2SAT 96
[2018-10-21 07:55] VITALS: BP 107/61; PULSE 76; RESP 76; TEMP 36.6
[2018-10-21 14:30] VITALS: BP 115/56; PULSE 85; RESP 20; TEMP 36.8
--- NOTE | 2018-10-21 16:23 | PCM.PN.OB ---
Patient Problems: Active and Suspected Problems (Last Reviewed 10/15/18 @ 08:41 by Raquel Hackett) PROM (premature rupture of membranes) (Acute) Subjective: doing well no complaints - Physical Exam General: Alert, Oriented x3 Vital Signs Temp Pulse Resp BP Pulse Ox 98.2 F 85 20 H 115/56 L 96 10/21/18 14:30 10/21/18 14:30 10/21/18 14:30 10/21/18 14:30 10/21/18 02:24 Oxygen Delivery Method Room Air Weight: 256 lb 2.834 oz Body Mass Index (BMI) 43.9 Intake and Output for Last 24 Hours 10/19/18 10/20/18 10/21/18 23:59 23:59 23:59 Intake Total 2970 / 2970 Output Total 1050 / 1050 Balance 1920 / 1920 Medical Necessity - Tobacco Use Smoking Status: Former smoker Assessment/Plan All Active Problems (Last Reviewed 10/15/18 @ 08:41 by Raquel Hackett) PROM (premature rupture of membranes) (Acute) Obesity affecting (Acute) Unspecified contraceptive management (Acute) Abnormal glucose complicating puerperium (Acute) Unspecified contraceptive management (Acute) (Acute) ASCUS of cervix with negative high risk HPV (Acute) Supervision of normal (Acute) BMI 39.0-39.9,adult (Resolved) s/p PPD # 2 1. routine post delivery care 2. breast feeding- support given 3. rh positive 4. rubella immune
== END 2018-10-21 17:05 | disposition home or self-care (01) | DRG 833 ==
PROVIDERS: Admitting Provider Obstetrics & Gynecology; Visit Provider Obstetrics & Gynecology
DX: O42.92 Full-term premature rupture of membranes, unspecified as to length of time between rupture and onset of labor (principal); O70.0 First degree perineal laceration during delivery; E66.9 Obesity, unspecified; O99.214 Obesity complicating childbirth; Z87.891 Personal history of nicotine dependence; Z28.21 Immunization not carried out because of patient refusal; Z68.39 Body mass index [BMI] 39.0-39.9, adult; Z3A.38 38 weeks gestation of pregnancy
CPT/HCPCS: 59050; 84112; 85027; 86850; 86900; 99218; J7120; A4216; G0378

== ENCOUNTER 2018-10-26 13:05 | Outpatient (CLI) | payer BC, SELFPAY | END 2018-10-26 14:15 | disposition home or self-care (01) | LOC: WPOUT 13:06 → WP 13:06 | PROVIDERS: Referring Provider Obstetrics & Gynecology; Visit Provider Obstetrics & Gynecology | DX: Z39.1 Encounter for care and examination of lactating mother (principal) | CPT/HCPCS: 96152 ==

== ENCOUNTER → 2018-12-03 17:03 | Outpatient (CLI) | payer BC, SELFPAY ==
[2018-12-03 16:02] VITALS: BMI 43.9
[2018-12-03 17:51] LABS: T4 Free Direct 0.92 ng/dL (0.76-1.46); Thyroid Stim Hormone (TSH) 1.33 uIU/mL (0.358-3.74)
[2018-12-07 09:52] LABS: HPV Reflexed? NOT INDICATED
--- OUTSIDE RECORDS SUMMARY | 2019-02-05 04:38 | XMS RPT_ITS ---
:1990 Author Organization OHIP Support Name Relationship Address Phone JAMIE ALVAREZ Unavailable [address] + [place] [address] [id number] Unavailable [address] + [place] [address] JAMIE ALVAREZ Unavailable [address] + [place] [address] [id number] Unavailable [address] + [place] [address] NELLIE ALVAREZED Unavailable [address] + [place] [address] [id number] Unavailable [address] + [place] [address] KIM, JAMIE Unavailable [address] + [place] [address] [id number] Unavailable [address] + [place] [address] KIM, JAMIE Unavailable [address] + [place] [address] [id number] Unavailable [address] + [place] [address] KIM, JAMIE Unavailable [address] + [place] [address] [id number] Unavailable [address] + [place] [address] KIM, JAMIE Unavailable [address] + [place] [address] [id number] Unavailable [address] + [place] [address] NELLIE ALVAREZED Unavailable [address] + [place] [address] [id number] Unavailable [address] + [place] [address] ALVAREZ, JAMIE Unavailable [address] + [place] [address] [id number] Unavailable [address] + [place] [address] ALVAREZ, JAMIE Unavailable [address] + [place] [address] [id number] Unavailable [address] + [place] [address] ALVAREZ, JAMIE Unavailable [address] + [place] [address] [id number] Unavailable [address] + [place] [address] ALVAREZ, JAMIE Unavailable [address] + [place] [address] [id number] Unavailable [address] + [place] [address] ALVAREZ, JAMIE Unavailable [address] + [facility] [address] [id number] Unavailable [address] + [place] [address] ALVAREZ, JAMIE Unavailable [address] + [facility] [address] [id number] Unavailable [address] + [place] [address] ALVAREZ, JAMIE Unavailable [address] + [place] [address] [id number] Unavailable [address] + [place] [address] ALVAREZ, JAMIE Unavailable [address] + [place] [address] [id number] Unavailable [address] + [place] [address] ALVAREZ, JAMIE Unavailable [address] + [place] [address] [id number] Unavailable [address] + [place] [address] ALVAREZ, JAMIE Unavailable [address] + [place] [address] [id number] Unavailable [address] + [place] [address] ALVAREZ, JAMIE Unavailable [address] + [place] [address] [id number] Unavailable [address] + [place] [address] ALVAREZ, JAMIE Unavailable [address] + [place] [address] [id number] Unavailable [address] + [place] [address] ALVAREZ, JAMIE Unavailable [address] + [facility] [place] [address] [id number] Unavailable [address] + [place] [address] ALVAREZ, JAMIE Unavailable [address] + [place] [address] [id number] Unavailable [address] + [place] [address] ALVAREZ, JAMIE Unavailable [address] + [facility] [address] [id number] Unavailable [address] + [place] [address] ALVAREZ, JAMIE Unavailable [address] + [place] [address] [id number] Unavailable [address] + [place] [address] ALVAREZ, JAMIE Unavailable [address] + [place] [address] [id number] Unavailable [address] + [facility] [address] [id number] Unavailable [address] + [facility] [address] JAMIE ALVRAEZ Unavailable [address] + [place] [address] [id number] Unavailable [address] + [place] [address] CHANROSENDO DOLLETTA Unavailable Unavailable + [place] [address] ALIX RAMSEY Unavailable [address] + [place] [address] [id number] Unavailable [address] + [place] [address] MUSA LIETTA Unavailable Unavailable + [place] [address] ALIX RAMSEY Unavailable [address] + [place] [address] [id number] Unavailable [address] + [place] [address] Care Team Providers Name Role Phone Alix Nicole Attending Unavailable MarcanthonyAlix Referring Unavailable Primay Care Physicia, No Primary Care Unavailable MarcanthonyAlix Attending Unavailable Primay Care Physicia, No Referring Unavailable Benekos, Tara Attending Unavailable Talampas, Kirstie Primary Care Unavailable Benekos Tara Referring Unavailable Benekos Tara Attending Unavailable MarcanthonyAlix Attending Unavailable Talampas, Kirstie Referring Unavailable Talampas, Kirstie Primary Care Unavailable MarcanthonyAlix Attending Unavailable MarcanthonyAlix Referring Unavailable Primay Care Physicia, No Primary Care Unavailable Talampas, Kirstie Attending Unavailable MarcanthonyAlix Attending Unavailable MarcanthonyAlix Referring Unavailable Primay Care Physicia, No Primary Care Unavailable Eduin, Jeimy Attending Unavailable Talampas, Kirstie Referring Unavailable Primay Care Physicia, No Primary Care Unavailable Eduin, Jeimy Attending Unavailable Primay Care Physicia, No Primary Care Unavailable Eduin, Jeimy Referring Unavailable Rumney, Jeimy Attending Unavailable Primay Care Physicia, No Primary Care Unavailable MarcanthonyAlix Attending Unavailable Primay Care Physicia, No Referring Unavailable Primay Care Physicia, No Primary Care Unavailable Rumney, Jeimy Attending Unavailable Primay Care Physicia, No Referring Unavailable Eduin, Jeimy Attending Unavailable Rumney, Jeimy Referring Unavailable Primay Care Physicia, No Primary Care Unavailable Rumney, Jeimy Attending Unavailable Rumney, Jeimy Referring Unavailable Primay Care Physicia, No Primary Care Unavailable Marcanthony, Alix Attending Unavailable Primay Care Physicia, No Referring Unavailable Marcanthony, Alix Attending Unavailable Primay Care Physicia, No Referring Unavailable Eduin, Jeimy Attending Unavailable Primay Care Physicia, No Referring Unavailable Marcanthony, Alix Admitting Unavailable Marcanthony, Alix Attending Unavailable Marcanthony, Alix [...] TYPE CONDITION / CODE ATTENDING STATUS SOURCE 12/03/2018 Unknown R87.610 - Atypical Marcanthony, Active [place] squamous cells of [facility] undetermined Hospital significance on Repository cytologic smear of cervix (ASC-US) / R87.610(ICD-10) 12/03/2018 Unknown Z39.2 - Encounter Marcanthony, Active [place] for routine [facility] follow-up / Repository Z39.2(ICD-10) 12/03/2018 Unknown 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, 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 / Repository E01.0(ICD-10) 10/11/2018 Unknown Z34.90 - Encounter Marcanthony, Active [place] for supervision of [facility] normal , Hospital unspecified, Repository unspecified trimester / Z34.90(ICD-10) 10/10/2018 Unknown Z30.431 - Encounter Marcanthony, Active [place] for routine [facility] checking of Hospital intrauterine Repository contraceptive device / Z30.431(ICD-10) 10/10/2018 Unknown Z34.03 - Encounter Marcanthony, Active [place] for supervision of [facility] normal first Hospital , third Repository trimester / Z34.03(ICD-10) 10/10/2018 Unknown O99.815 - Abnormal Marcanthony, Active [place] glucose [facility] complicating the Hospital puerperium / Repository O99.815(ICD-10) 10/10/2018 Unknown Z3A.36 - 36 weeks Marcanthony, Active [place] gestation of [facility] / Hospital Z3A.36(ICD-10) Repository 09/24/2018 Unknown Z68.39 - Body mass Eduin, Jeimy Active [place] index (BMI) [facility] 39.0-39.9, adult / Hospital Z68.39(ICD-10) Repository 09/24/2018 Unknown Z3A.34 - 34 weeks Eudin, Jeimy Active [place] gestation of [facility] / Hospital Z3A.34(ICD-10) Repository 09/10/2018 Unknown Z3A.32 - 32 weeks [facility] [place] gestation of [facility] / Hospital Z3A.32(ICD-10) Repository 08/27/2018 Unknown Z3A.30 - 30 weeks Marcanthony, Active [place] gestation of [facility] / Hospital Z3A.30(ICD-10) Repository 08/13/2018 Unknown Z34.02 - Encounter RumneyTristay Active [place] for supervision of [facility] normal first Hospital , second Repository trimester / Z34.02(ICD-10) 08/13/2018 Unknown Z23 - Encounter for Eduin, Jeimy Active [place] immunization / Community Z23(ICD-10) Hospital Repository 08/13/2018 Unknown Z3A.28 - 28 weeks Eduin, Jeimy Active [place] gestation of Community / Hospital Z3A.28(ICD-10) Repository 07/17/2018 Unknown Z3A.25 - 25 weeks Bonnie Active [place] gestation of Alix [facility] / Hospital Z3A.25(ICD-10) Repository 07/02/2018 Unknown Z04.8 - Encounter Jeimy Denny Active [place] for examination and Community observation for Hospital other specified Repository reasons / Z04.8(ICD-10) 06/14/2018 Unknown Z3A.20 - 20 weeks Jeimy Denny Active [place] gestation of Community / Hospital Z3A.20(ICD-10) Repository 04/27/2018 Unknown Z34.81 - Encounter WooTara marin Active [place] for supervision of Community other normal Hospital , first Repository trimester / Z34.81(ICD-10) 03/13/2018 Unknown N91.2 - Amenorrhea, Tara Gómez Active [place] unspecified / Community N91.2(ICD-10) Hospital Repository PROCEDURES PROCEDURES No Procedure Records FoundRESULTS RESULTS THYROID STIM HORMONE Collected: 12/03/2018 Status: F Source: [place] (TSH) 5:07 PM [facility] REPOSITORY TYPE CODE TESTS RESULT OUT OF RANGE REFERENCE UNITS LAB L501.9520 0.358-3.74 uIU/mL Normal TSH 1.33 Performed By: #### L501.9520, L506.0400 #### [facility] [address] [place], [address] T4 FREE DIRECT Collected: 12/03/2018 Status: F Source: [place] 5:07 PM [facility] REPOSITORY TYPE CODE TESTS RESULT OUT OF RANGE REFERENCE UNITS LAB L506.0400 0.76-1.46 ng/dL Normal T4 FREE 0.92 DIRECT Performed By: #### L501.9520, L506.0400 #### [facility] [address] [place], [address] SYSTEM DEVELOPMENT MANAGER OFFICE VISIT Observed: 12/03/2018 Status: F Source: [place] REPORT 4:52 PM [facility] REPOSITORY [facility] [address] [place] [place] [address] OFFICE VISIT Date of Service: 12/03/18 MR#: [id number] Acct: [id number] Name: CHARO ALVAREZ Rep #: [id number] : 1990 Provider: Alix Nicole MD Age/Sex: 28/F Location: [facility] Status: Signed Intake Vital Signs12/03/18 Body Mass Index (BMI) 43.9 12/03/18 Height 5 ft 4 in 12/03/18 Weight: 225 lb 12/03/18 Body Mass Index (BMI) 38.6 12/03/18 Blood Pressure 108/64 Intake Visit Reasons: 6 WEEK PP Chief Complaint: 6w pp Video Software Engineer Required: No Is patient in pain?: No Allergies No Known Allergies Allergy (Verified 12/03/18 16:01) Medications vitamin,calcium,lwmfxzms-ucce-srtdz acid tablet 1 tab PO QDAY 05/14/18 [History Confirmed 12/03/18] : Yes PFSH Medical History GERD (gastroesophageal reflux disease) [...] No pets and animals: Yes Smoking Status: Former smoker second hand exposure: No alcohol intake: current alcohol intake frequency: other substance use type: does not use seatbelt use: always do you feel safe at home: Yes additional social history: Spouse- Jamie Step Dght- Raelah Pregancy History 1 Elective abortions Hx Para 1 Spontaneous abortions Past Pregnancies Del. DatName GA/WeeksOutcome Route [facility] LgAnestheWilel LocaProviderFOB e ht en ia tn 10/18/18Briceley 38 live birNSVD Female epiduralWCH SM th - ful l term Delivery Date: 10/18/18 On 10/25/18 @ 09:09 Pippa Hamm PROM Depression Screen PHQ-2/9 PHQ-2 Over the last 2 weeks, how often have you been bothered by any of the following problems? 1. Little interest or pleasure in doing things: not at all 2. Feeling down, depressed, or hopeless: not at all Total score: 0 If score is 2 or greater, continue Source: Developed by Drs. Javan Montoya, Nettie Land, Terry Anders and colleagues, with an educational ed from [employer]. Scoring: Total Score Depression Severity Action 1-4 Minimal depression No action needed 5-9 Mild depression Repeat PHQ-9 at follow up 10-14 Moderate depression Make tx plan,consider counseling, fup, prescription Post HPI 6 WEEK PP : Details: CHARO ALVAREZ is a 28 year old who presents for her post visit. Feeding: Breast Menses resumed: No [place] since delivery: No Emotional Support: Yes ROS Const Reports system reviewed and no additional complaints, except as docu GI Reports system reviewed and no additional complaints, except as docu, Denies bloating, Denies nausea, Denies vomiting, Denies constipation Reports system reviewed and no additional complaints, except as docu, Denies abnormal vaginal bleeding, Denies pelvic pain, Denies sexual problems, Denies urinary urgency, Denies vaginal discharge, Denies urinary hesitancy, Denies urinary incontinence Skin/Breast Reports system reviewed and no additional complaints, except as docu, Reports as per HPI Psych Reports as per HPI Exam Const General: cooperative, healthy appearing, comfortable, no acute distress HENMI Head: normal to inspection Neck Neck: normal visual inspection, no lymphadenopathy Thyroid: diffusely enlarged Chest Breast inspection: normal inspection of the breasts, normal inspection of the axillae Breast palpation: normal palpation of the breasts, normal palpation of the axillae Resp Effort AND Inspection: normal respiratory effort GI Inspection: normal to inspection Palpation: soft, no hepatosplenomegaly, nontender General: bladder normal to palpation External Female Exam: normal external appearance, normal appearance of the urethra Urethra: normal appearance of the urethra Speculum Exam - Vagina: normal appearance of the vagina, normal vaginal discharge Speculum Exam - Cervix: normal appearance of the cervix Bimanual Exam- Vagina AND Uterus: bladder normal to palpation, normal bimanual exam, uterine shape normal, uterine size normal, uterus non-tender Bimanual Exam- Adnexa, other: normal adnexae, pelvic support normal Pelvic Support: normal Skin General: no rashes or lesions noted Assessment AND Plan Problems 1. care and examination Z39.2 2. 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 Orders Orders: Coding Level of Care Code No Charge Diagnoses care and examination Z39.2 Thyromegaly E01.0 12/03/18 1652 <Electronically signed by Alix Nicole MD> Date Alix Nicole MD Cosigner Signature: Date (if applicable) CC: PAP I-G W/RFX Collected: 12/03/2018 Status: F Source: [place] HRHPV-APTIMA 4:15 PM [facility] REPOSITORY Order Comment: CYTOLOGY INFORMATION: - CLINICAL INFORMATION: - DATE LMP/MENOPAUSE: LMP - COLLECTION VIAL: Thin Prep Vial - AUTO REPAIR TECHNICIAN SOURCE: CERVICAL - COLLECTION TECHNIQUE: BRUSH/SPATULA Specimen Comment: [id number] Specimen Comment: Source.............Cervix Specimen Comment: Other..............Post- Specimen Comment: No. of containers..01 ThinPrep Vial TYPE CODE TESTS RESULT OUT OF RANGE REFERENCE UNITS LAB L7400.0800 . Normal DIAGN Comment Result Comment: NEGATIVE FOR INTRAEPITHELIAL LESION OR MALIGNANCY. LAB L7400.0900 . Normal ADEQ Comment Result Comment: Satisfactory for evaluation. Endocervical and/or squamous metaplastic cells (endocervical component) are present. LAB L7400.1400 . Normal PERFORM Comment Result Comment: Rayna Card, Wheel Tuner (ASCP) LAB L7400.2575 . Normal TEST METHOD Comment Result Comment: This liquid based ThinPrep(R) pap test was screened with the use of an image guided system. LAB L7400.2600 . Normal . COMM LAB L7400.2700 . Normal PAPSMR Comment Result Comment: The Pap smear is a screening test designed to aid in the detection of premalignant and malignant conditions of the uterine cervix. It is not a diagnostic procedure and should not be used as the sole means of detecting cervical cancer. Both false-positive and false-negative reports do occur. LAB L7400.2800 . Normal HPV RFLX Comment Result Comment: The HPV DNA reflex criteria were not met with this specimen result therefore, no HPV testing was performed. Performed at: - [facility] [id number] Animal Daycare Provider: Haley Avila MD, Phone: [phone] Performed By: #### L7400.0353 #### [facility] (refer to report for specific site) refer to report for address and phone number OPERATIVE REPORT Observed: 10/19/2018 Status: F Source: [place] 5:24 AM [facility] REPOSITORY [facility] Medical Records Department [address] [place] [address] Operative Report 10/19/18 0429 MR#: [id number] Acct: [id number] Name: ALVAREZCHARO Rep #: [id number] : 1990 28 From: Alix Nicole MD PCP: Care Physician, No Primary Status: ADM IN Y Location: [place] [address] - Problem List (1) PROM (premature rupture [...] Cord Entanglement: None Estimated Blood Loss: 100 Infant A gender: Female Episiotomy Description: None Laceration: Perineal Extension/lac, 1st degree Medications given after delivery: IV Pitocin Complications: None 10/19/18 0524 <Electronically signed by Alix Nicole MD> Date Alix Nicole MD CC: No Primary Care Physician; Alix Nicole MD Signed DISCHARGE INSTRUCTION Observed: 10/19/2018 Status: F Source: [place] 5:24 AM [facility] REPOSITORY [facility] Medical Records Department [address] [place] [address] Instructions for Home/Discharge Instructions 10/19/18 0524 MR#: [id number] Acct: [id number] Name: CHARO ALVAREZ Rep #: [id number] : 1990 28 From: Alix Nicole MD [...] capsule,delayed release 40 mg PO QDAY 05/14/18 vitamin,calcium,gfphazub-iksr-qpfhr acid tablet 1 tab PO QDAY 05/14/18 breast pump See Dose Instructions .ROUTE .MEDSUPPLY #1 ea 08/20/18 Please Follow Up With: Alix Nicole MD - [phone] When: Call to make an appointment with [...] AND PHYSICAL Observed: 10/18/2018 Status: F Source: [place] EXAM 8:21 PM [facility] REPOSITORY [facility] Medical Records Department [address] [place] [address] History and Physical 10/18/182016 MR#: [id number] Acct: [id number] Name: CHARO ALVAREZ Rep #: [id number] : 1990 28 From: Alix Nicole MD PCP: Care Physician, No Primary Status: ADM IN Y Location: [facility]-2 - Problem List (1) PROM (premature rupture [...] Comment: JP 10/31/18 girl- surprise name Jamie (dtdalton Peters) History Date of Admission: 10/18/18 Final [...] capsule,delayed release 40 mg PO QDAY 05/14/18 vitamin,calcium,qltsqxef-mxqg-hmvvy acid tablet 1 tab PO QDAY 05/14/18 breast pump See Dose Instructions .ROUTE .MEDSUPPLY #1 ea 08/20/18 Smoking Status: Former smoker Alcohol: None Number of Fetus(es): 1 Heart Tracin-160 moderate variability reactive no decels cat I tracing TOCO Analysis: no regular History Past Pregnancies: Past Pregnancies Delivery Name GA/Weeks Outcome Route WeiInfant GeLabor LenAnesthesiDelivery Provider FOB Date t [facility] a Location Labs: Mom's Labs AND Results [...] Smoking Yes Smoking Status Former smoker Expected Infant Delivery Method: Spontaneous Vaginal Describe any other labor AND delivery plans:: Pregancy History. 1 Elective abortions. Hx Para 0 Spontaneous abortions. Hx # Term Pregnancies Ectopic pregnancies. Hx # Pregnancies Multiple births. # of living children. HPI. OB Visit. PJ Calculator. Estimated Delivery Date 10/31/18. Based on [...] Symmetrical, Neuro grossly intact. Negative for: Clonus AUTO REPAIR TECHNICIAN: Normal external genitalia. Negative for: Vulvar lesions [...] any complications: none I have reviewed the [facility] and made any clinically relevant updates. 10/18/182020 <Electronically signed by Alix Nicole MD> Date Alix Nicole MD Cosigner Signature: Date (if applicable) CC: No Primary Care Physician; Alix Nicole MD Signed CBC-COMPLETE BLOOD CNT Collected: 10/18/2018 Status: F Source: [place] NO DIFF 7:37 PM [facility] REPOSITORY TYPE CODE TESTS RESULT OUT OF [...] MPV 9.4 Performed By: #### L100.0500 #### [facility] [address] [facility]. [place], [place], [id number] TYPE AND SCREEN Collected: 10/18/2018 Status: F Source: [place] 7:37 PM [facility] REPOSITORY Order Comment: Reason for Type AND Screen/Red Cells: ROUTINE TYPE CODE TESTS RESULT OUT OF RANGE REFERENCE UNITS LAB B10.0800 A Normal BLOOD TYPE GEL POSITIVE LAB B100.4000 Normal Antibody NEGATIVE Screen Performed By: #### B101.7450 #### [facility] [address] [facility]. [place], [place], [address] (ROM) RUPTURE OF Collected: 10/18/2018 Status: F Source: [place] MEMBRANES 6:25 PM [facility] REPOSITORY TYPE CODE TESTS RESULT OUT OF REFERENCE UNITS RANGE LAB L205.1310 Negative High ROM POSITIVE Result Comment: Amniotic fluid present indicates rupture of Membranes. RESULTS CALLED TO C.ST.JOHN CARRERA 10/18/18 1908 Iggy Asif. REPORT READ BACK BY SAME . Performed By: #### L205.1000 #### [facility] [address] [place], [address] SYSTEM DEVELOPMENT MANAGER OFFICE VISIT Observed: 10/15/2018 Status: F Source: [place] REPORT 9:00 AM [facility] REPOSITORY [facility] [address] [place] [address] OFFICE VISIT Date of Service: 10/15/18 MR#: [id number] Acct: [id number] Name: CHARO ALVAREZ Rep #: [id number] : 1990 Provider: Alix Nicole MD Age/Sex: 28/F Location: [facility] Status: Signed Intake Vital Signs10/15/18 Body Mass Index (BMI) 42.9 10/15/18 Height 5 ft 4 in 10/15/18 Weight: 252 lb 6 oz 10/15/18 Body Mass Index (BMI) 43.3 10/15/18 Blood Pressure 108/80 Intake Visit Reasons: 37 weeks Video Software Engineer Required: No Is patient in pain?: No Allergies No Known Allergies Allergy (Verified 10/15/18 08:40) Medications omeprazole 40 mg capsule,delayed release 40 mg PO QDAY 05/14/18 [History Confirmed 10/15/18] vitamin,calcium,hynhzbwe-uads-lpyaq acid tablet 1 tab PO QDAY 05/14/18 [...] 08/27/18 no vb lof good fmno regualr sandra Nicole MD on 08/27/18 Visit Date: 08/13/18 Doing well. NO VB, LOF ALOK Maza on 08/13/18 Visit Date: 07/17/18 no vb lof good fm reviewed anatomy us Alix Nicole MD on 07/17/18 Visit Date: 06/14/18 Doing well. Thinks feeling some movement. No vaginal bleeding or LOF since prior to last visit. Jeimy Denny NP-C on 06/14/18 Visit Date: 05/14/18 had bleeding [...] Z34.03 JP 10/31/18 girl- surprise name Jamie (dtdalton Peters) 4. Abnormal glucose complicating puerperium O99.815 3 [...] MD Cosigner Signature: Date (if applicable) CC: SYSTEM DEVELOPMENT MANAGER OFFICE VISIT Observed: 10/10/2018 Status: F Source: [place] REPORT 12:33 PM [facility] [address] [place] [address] OFFICE VISIT Date of Service: 10/10/18 MR#: [id number] Acct: [id number] Name: CHARO ALVAREZ Dalton Rep #: [id number] : 1990 Provider: Alix Nicole MD Age/Sex: 28/F Location: [facility] Status: Signed Intake Vital Signs10/10/18 Body Mass Index (BMI) 42.9 10/10/18 Height 5 ft 4 in 10/10/18 Weight: 254 lb 10/10/18 Body Mass Index (BMI) 43.6 10/10/18 Blood Pressure 110/82 H Intake Visit Reasons: 36 week ob Chief Complaint: est ob Video Software Engineer Required: No Is patient in pain?: No Allergies No Known Allergies Allergy (Verified 10/10/18 11:46) Medications omeprazole 40 mg capsule,delayed release 40 mg PO QDAY 05/14/18 [History Confirmed 10/10/18] vitamin,calcium,gfapwgil-ccei-kzmlh acid tablet 1 tab PO QDAY 05/14/18 [...] since prior to last visit. Jeimy Denny NP-C on 06/14/18 Visit Date: 05/14/18 had bleeding [...] Source: [place] CULTURE, GROUP B 12:00 AM [facility] REPOSITORY Comments: VAGINAL RECTAL CURT Culture Group B Beta Streptococcus is not isolated. Performed By: #### M100.1800 #### [facility] [address] [place], [place], [address] SYSTEM DEVELOPMENT MANAGER OFFICE VISIT Observed: 09/24/2018 Status: F Source: [place] REPORT 1:16 PM [facility] REPOSITORY [facility] [address] [place] [address] OFFICE VISIT Date of Service: 09/24/18 MR#: [id number] Acct: [id number] Name: CHARO ALVAREZ Dalton Rep #: [id number] : 1990 Provider: MAURILIO Denny Age/Sex: 28/F Location: [facility] Status: Signed Intake Vital Signs09/24/18 Height 5 ft 4 in 09/24/18 Weight: 250 lb 09/24/18 Body Mass Index (BMI) 42.9 09/24/18 Blood Pressure 120/70 Intake Visit Reasons: 34 weeks Chief Complaint: est ob Video Software Engineer Required: No Is patient in pain?: No Allergies No Known Allergies Allergy (Verified 09/24/18 13:01) Medications omeprazole 40 mg capsule,delayed release 40 mg PO QDAY 05/14/18 [History Confirmed 09/24/18] vitamin,calcium,ucdcxgrs-xmtu-fxnty acid tablet 1 tab PO QDAY 05/14/18 [...] JANICE Benekos Alix Nicole MD on 05/14/18 Diagnostics Diagnostics [...] Z34.03 JP 10/31/18 girl- surprise name Jamie (dtdalton Peters) 2. 34 weeks gestation of Z3A.34 anatomy [...] DICKINSON Cosigner Signature: Date (if applicable) CC: SYSTEM DEVELOPMENT MANAGER OFFICE VISIT Observed: 09/10/2018 Status: F Source: RADHA REPORT 9:12 AM [facility] [address] [place] [address] OFFICE VISIT Date of Service: 09/10/18 MR#: [id number] Acct: [id number] Name: KIMCHARO Hoffman Rep #: [id number] : 1990 Provider: Alix Nicole MD Age/Sex: 28/F Location: [facility] Status: Signed Intake Vital Signs09/10/18 Height 5 ft 4 in 09/10/18 Weight: 245 lb 8 oz 09/10/18 Body Mass Index (BMI) 42.1 09/10/18 Blood Pressure 122/72 H Intake Visit Reasons: 32 weeks Chief Complaint: est ob Video Software Engineer Required: No Is patient in pain?: No Allergies No Known Allergies Allergy (Verified 09/10/18 08:49) Medications omeprazole 40 mg capsule,delayed release 40 mg PO QDAY 05/14/18 [History Confirmed 08/27/18] vitamin,calcium,usiyrioz-ehbk-qwrea acid tablet 1 tab PO QDAY 05/14/18 [...] Date: 08/13/18 Doing well. NO VB, LOF ANABELLE MazaC on 08/13/18 Visit Date: 07/17/18 no vb [...] Z34.03 JP 10/31/18 girl- surprise name Jamie (dtdalton Peters) 5. Abnormal glucose complicating puerperium O99.815 3 [...] MD Cosigner Signature: Date (if applicable) CC: SYSTEM DEVELOPMENT MANAGER OFFICE VISIT Observed: 08/27/2018 Status: F Source: RADHA REPORT 9:17 AM [facility] [address] [place] [address] OFFICE VISIT Date of Service: 08/27/18 MR#: [id number] Acct: [id number] Name: CHARO ALVAREZ Rep #: [id number] : 1990 Provider: Alix Nicole MD Age/Sex: 28/F Location: [facility] Status: Signed Intake Vital Signs08/27/18 Height 5 ft 4 in 08/27/18 Weight: 244 lb 08/27/18 Body Mass Index (BMI) 41.8 08/27/18 Blood Pressure 128/72 H Intake Visit Reasons: 30 weeks Video Software Engineer Required: No Is patient in pain?: No Allergies No Known Allergies Allergy (Verified 08/27/18 08:51) Medications omeprazole 40 mg capsule,delayed release 40 mg PO QDAY 05/14/18 [History Confirmed 08/27/18] vitamin,calcium,xnuwuobc-fsom-mkvcu acid tablet 1 tab PO QDAY 05/14/18 [...] Ef Gluco faced se 05/14/1227 lb 110/64 [id number] had ble 8 (+2 lb) e eding a 15 nd brow w 5d Negati n disch ve arge. JANICE Ryan ekos Visit Notes Visit Date: 08/27/18 no vb lof good fmno regualr ctx Alix Nicole MD on 08/27/18 Visit Date: 08/13/18 Doing well. NO VB, LOF ANABELLE MazaC on 08/13/18 Visit Date: 07/17/18 no vb [...] Planning (iud), Care Planning (16 weeks paid, clock mechanic), Depression/Anxiety and Intimate Partner Violence; discussed Tobacco [...] MD Cosigner Signature: Date (if applicable) CC: GESTATIONAL GTT 3HR Collected: 08/20/2018 Status: F Source: RADHA SpicerG 10:03 AM [facility] REPOSITORY Order Comment: Is Patient Fasting? Y [...] 3HR 72 Performed By: #### L500.4710 #### [facility] [address] [place], [address] CBC W/DIFF, AUTOMATED Collected: 08/13/2018 Status: F Source: RADHA 10:17 AM [facility] REPOSITORY TYPE CODE TESTS RESULT OUT OF [...] Lymph 1.47 Performed By: #### L100.0100 #### [facility] [address] [place], [address] GLUCOSE CHALLENGE GEST Collected: 08/13/2018 Status: F Source: RADHA 1H 50G 10:17 AM [facility] REPOSITORY TYPE CODE TESTS RESULT OUT OF RANGE REFERENCE UNITS LAB L501.0250 70-140 mg/dL High GLU GEST 154 50g 1H Performed By: #### L501.0250 #### [facility] [address] [place], [address] SYSTEM DEVELOPMENT MANAGER OFFICE VISIT Observed: 08/13/2018 Status: F Source: RADHA REPORT 9:48 AM [facility] REPOSITORY [facility] [address] [place] [address] OFFICE VISIT Date of Service: 08/13/18 MR#: [id number] Acct: [id number] Name: CHARO ALVAREZ Rep #: [id number] : 1990 Provider: MAURILIO Denny Age/Sex: 28/F Location: [facility] Status: Signed Intake Vital Signs08/13/18 Height 5 ft 4 in 08/13/18 Weight: 242 lb 08/13/18 Body Mass Index (BMI) 41.5 08/13/18 Blood Pressure 100/70 Intake Visit Reasons: 28 weeks Chief Complaint: est ob Video Software Engineer Required: No Is patient in pain?: No Allergies No Known Allergies Allergy (Verified 08/13/18 09:16) Medications omeprazole 40 mg capsule,delayed release 40 mg PO QDAY 05/14/18 [History Confirmed 08/13/18] vitamin,calcium,ozarxypp-djkb-kgnla acid tablet 1 tab PO QDAY 05/14/18 [History Confirmed 08/13/18] breast pump See Dose Instructions .ROUTE .GUEVARA #1 ea 08/13/18 [Rx Confirmed 08/13/18] Last [...] JANICE Benekos Alix Nicole MD on 05/14/18 Diagnostics Diagnostics [...] Admin Location Lot Number Expiration Date NDC Stable Cleaner 0.5 mL IM Left Arm (SQ) [id number] 10/01/24 [id number] SANOFI-PASTEUR VIS Given Date VIS Publication Date 08/13/18 01/06/15 Eligibility Eligibility Date Assessment AND Plan Problems 1. Encounter for supervision of normal first in second trimester Z34.02 JP 10/31/18 girl- surprise name Jamie (dtr Fran) 2. 28 weeks gestation of Z3A.28 anatomy [...] DICKINSON Cosigner Signature: Date (if applicable) CC: SYSTEM DEVELOPMENT MANAGER OFFICE VISIT Observed: 07/17/2018 Status: F Source: RADHA REPORT 2:10 PM [facility] [address] [place] [address] OFFICE VISIT Date of Service: 07/17/18 MR#: [id number] Acct: [id number] Name: CHARO ALVAREZ Rep #: [id number] : 1990 Provider: Alix Nicole MD Age/Sex: 28/F Location: [facility] Status: Signed Intake Vital Signs07/17/18 Height 5 ft 4 in 07/17/18 Weight: 240 lb 4 oz 07/17/18 Body Mass Index (BMI) 41.2 07/17/18 Blood Pressure 108/70 Intake Visit Reasons: 24 weeks Chief Complaint: est ob Video Software Engineer Required: No Is patient in pain?: No Allergies No Known Allergies Allergy (Verified 07/17/18 13:45) Medications omeprazole 40 mg capsule,delayed release 40 mg PO QDAY 05/14/18 [History Confirmed 07/17/18] vitamin,calcium,wybsytht-ubnn-zdqop acid tablet 1 tab PO QDAY 05/14/18 [...] since prior to last visit. Jeimy Denny NP-C on 06/14/18 Visit Date: 05/14/18 had bleeding and brown discharge. JANICE Benekos Alix iNcole MD on 05/14/18 Diagnostics Diagnostics Labs Blood [...] LIMITED (NO Observed: 07/02/2018 Status: F Source: [place] BI[facility]ETR[facility]) 8:48 AM [facility] REPOSITORY [facility] Imaging Services [address] [place] [address] OB Limited (No Biometrics) MR#: [id number] Acct: [id number] Name: CHARO ALVAREZ Rep #: [id number] : 1990 F 27 From: Darnell Barth MD PCP: Care Physician, No Primary Status: REG CLI Study: OB Limited (No Biometrics) Date of Exam: 07/02/18 Exam# [id number] Ordering Dr: Jeimy Denny SURVEILLANCE CAMERA TECHNICIANMervin STUDY: SECOND AND THIRD TRIMESTER OBSTETRICAL ULTRASOUND [...] Darnell Barth MD at 9:24 EDT Tel [phone], Service support , CC: MAURILIO Denny; No Primary Care Physician Correctional Treatment Specialist: Signed Observed: 06/14/2018 Status: F Source: RADHA CULTURE, URINE 4:56 PM [facility] REPOSITORY Urine Culture Below infection level. Yeast present. ORGANISM 1: Mixed Gram Positive Organisms [place] Count 1000-10,000 Performed By: #### M100.0650 #### [facility] [place], [address] SYSTEM DEVELOPMENT MANAGER OFFICE VISIT Observed: 06/14/2018 Status: F Source: RADHA REPORT 8:52 AM [facility] REPOSITORY [facility] [address] [place] [address] OFFICE VISIT Date of Service: 06/14/18 MR#: [id number] Acct: [id number] Name: CHARO ALVAREZ Rep #: [id number] : 1990 Provider: MAURILIO Denny Age/Sex: 27/F Location: [facility] Status: Signed Intake Vital Signs06/14/18 Height 5 ft 4 in 06/14/18 Weight: 231 lb 2 oz 06/14/18 Body Mass Index (BMI) 39.6 06/14/18 Blood Pressure 115/69 Intake Visit Reasons: OB Routine 19w6d Chief Complaint: est ob Video Software Engineer Required: No Is patient in pain?: No Allergies No Known Allergies Allergy (Verified 06/14/18 08:27) Medications omeprazole 40 mg capsule,delayed release 40 mg PO QDAY 05/14/18 [History Confirmed 06/14/18] vitamin,calcium,gmvghbmh-rgod-yfmol acid tablet 1 tab PO QDAY 05/14/18 [...] JANICE Benekos Alix Nicole MD on 05/14/18 Diagnostics Diagnostics [...] in second trimester Z34.02 JP 10/31/18 Jamie (van Peters) 2. BMI 39.0-39.9,adult Z68.39 3. ASCUS of [...] ANATOMY SCAN Observed: 06/09/2018 Status: F Source: [place] 9:20 AM [facility] REPOSITORY [facility] Imaging Services [address] [place] [address] OB Anatomy Scan MR#: [id number] Acct: [id number] Name: CHARO ALVAREZ Rep #: [id number] : 1990 F 27 From: John Lopez MD PCP: Care Physician, No Primary Status: REG CLI Study: OB Anatomy Scan Date of Exam: 06/09/18 Exam# [id number] Ordering Dr: Alix Nicole MD STUDY: SECOND [...] No Primary Care Physician; Alix Nicole MD Correctional Treatment Specialist: Signed SYSTEM DEVELOPMENT MANAGER OFFICE VISIT Observed: 05/14/2018 Status: F Source: RADHA REPORT 9:35 AM [facility] [address] [place] [address] OFFICE VISIT Date of Service: 05/14/18 MR#: [id number] Acct: [id number] Name: CHARO ALVAREZ Rep #: [id number] : 1990 Provider: Alix Nicole MD Age/Sex: 27/F Location: [facility] Status: Signed Intake Vital Signs05/14/18 Height 5 ft 4 in 05/14/18 Weight: 227 lb 05/14/18 Body Mass Index (BMI) 38.9 05/14/18 Blood Pressure 110/64 Intake Visit Reasons: 15 WEEK TRANSFER FROM [facility] Video Software Engineer Required: No Accompanied by: self Is patient in pain?: No Allergies No Known Allergies Allergy (Unverified 05/14/18 09:01) Medications omeprazole 40 mg capsule,delayed release 40 mg PO QDAY 05/14/18 [History Confirmed 05/14/18] vitamin,calcium,nkbbrlhf-jhbg-vrfoc acid tablet 1 tab PO QDAY 05/14/18 [...] Spontaneous abortions HPI 15 WEEK TRANSFER FROM [facility] DISCHARGE: Details: CHARO ALVAREZ is [...] 05/14/18 had bleeding and brown discharge. JANICE Wookos Alix Nicole MD on 05/14/18 Diagnostics Diagnostics [...] signed by Alix Nicole MD> Date Alix Marshallignciro Signature: Date (if applicable) CC: URINE DRUG SCREEN Collected: 04/13/2018 Status: F Source: RADHA (MARLEYTA) 1:56 PM [facility] REPOSITORY Order Comment: List of Drugs Taken [...] Normal NEGATIVE Performed By: #### L505.5000 #### [facility] [address] [place], [address] CBC W/DIFF, AUTOMATED Collected: 04/13/2018 Status: F Source: RADHA 1:56 PM [facility] REPOSITORY TYPE CODE TESTS RESULT OUT OF [...] Lymph 2.08 Performed By: #### L100.0100 #### [facility] [address] [place], [address] URINALYSIS, ROUTINE Collected: 04/13/2018 Status: F Source: [place] (DIPSTICK) 1:56 PM [facility] REPOSITORY Order Comment: How was Urine Obtained? [...] VALUE VERIFIED. CALLED TO LINDA GRIFFITHS 04/13/18 1515 Damion Meliton. RESULTS READ BACK BY LINDA . LAB [...] ESTERASE 500 Performed By: #### L400.2010 #### [facility] [address] [facility] [place], [place], [address] THYROID STIM HORMONE Collected: 04/13/2018 Status: F Source: [place] (TSH) 1:56 PM [facility] REPOSITORY TYPE CODE TESTS RESULT OUT OF RANGE REFERENCE UNITS LAB L501.9520 0.358-3.74 uIU/mL Normal TSH 1.79 Performed By: #### L501.9520 #### [facility] [address] [place], [place], [address] RUBELLA IGG Collected: 04/13/2018 Status: F Source: [place] 1:56 PM [facility] REPOSITORY TYPE CODE TESTS RESULT OUT OF RANGE REFERENCE UNITS LAB L509.4000 IU/mL Normal Rubella IgG 443.7 Result Comment: Antibody results Interpretation of Immune Status < 5 IU/ml Presumed Non-immune 5 - < 10 IU/ml Equivocal > or = 10 IU/ml Presumed Immune Performed By: #### L509.4000, L3890.6005 #### [facility] [address] [place], [place], [address] HIV - WCH Collected: 04/13/2018 Status: F Source: [place] 1:56 PM [facility] REPOSITORY TYPE CODE TESTS RESULT OUT OF RANGE REFERENCE UNITS LAB L3890.6005 Nonreactive Normal HIV - [facility] Non-Reactive Performed By: #### L509.4000, L3890.6005 #### [facility] [address] [facility] [place], [address] T AND S-NO Collected: 04/13/2018 Status: F Source: RADHA CHARGE W/PNP 1:56 PM [facility] REPOSITORY Order Comment: Reason for Type AND Screen/Red Cells: Surgery? N TYPE CODE TESTS RESULT OUT OF RANGE REFERENCE UNITS LAB B10.0800 A Normal BLOOD POSITIVE TYPE GEL LAB B100.4050 Normal Ab SCREEN NEGATIVE GEL Performed By: #### B100.7550 #### [facility] [address] [place], [place], [address] HEPATITIS B SURFACE Collected: 04/13/2018 Status: F Source: RADHA AG 1:56 PM [facility] REPOSITORY TYPE CODE TESTS RESULT OUT OF RANGE REFERENCE UNITS LAB L3100.0400 Negative Normal HB Negative SURF AG Result Comment: Performed at: [facility] [address] [id number] Animal Daycare Provider: Narayan Abdullahi PhD, Phone: [phone] Performed By: #### L3100.0390, L3100.0625 #### [facility] (refer to report for specific site) refer to report for address and phone number HEPATITIS C ANTIBODIES Collected: 04/13/2018 Status: F Source: RADHA 1:56 PM [facility] REPOSITORY TYPE CODE TESTS RESULT OUT OF RANGE REFERENCE UNITS LAB L3100.0650 0.0-0.9 s/co ratio Normal HEP C AB <0.1 Result Comment: Negative: < 0.8 Indeterminate: 0.8 - 0.9 Positive: > 0.9 The CDC recommends that a positive HCV antibody result be followed up with a HCV Nucleic Acid Amplification test (345999). Performed By: #### L3100.0390, L3100.0625 #### [facility] (refer to report for specific site) refer to report for address and phone number RPR Collected: 04/13/2018 Status: F Source: RADHA 1:56 PM [facility] REPOSITORY TYPE CODE TESTS RESULT OUT OF REFERENCE UNITS RANGE LAB L700.5100 NONREACTIVE Normal RPR NONREACTIVE Performed By: #### L700.5100 #### [facility] [address] [place], [address] CT/NG WCH BY PCR Collected: 04/13/2018 Status: F Source: RADHA 1:50 PM [facility] REPOSITORY TYPE CODE TESTS RESULT OUT OF RANGE REFERENCE UNITS LAB L8200.2100 Negative Normal Chlam Negative Trac PCR LAB L8200.2200 Negative Normal NG by Negative PCR Performed By: #### L8200.2000 #### [facility] [address] [place], [address] HCG TITER QUANT., Collected: 03/13/2018 Status: F Source: RADHA SERUM 5:41 PM [facility] REPOSITORY TYPE CODE TESTS RESULT OUT OF RANGE REFERENCE UNITS LAB L700.8000 <9 non-preg mIU/mL High HCG 63370 QUANT. Performed By: #### L700.8000 #### [facility] [address] [place], [address] ALLERGIES ALLERGIES DATE TYPE / CODE NAME / CODE REACTION SEVERITY SOURCE 12/03/2018 Drug No Known Unknown [facility] Allergy/4160 Allergies/F00 Hospital 55756(SNOMED 7543394(RXNOR Repository CT) M) ENCOUNTERS ENCOUNTERS ADMIT/DISCHARGE ACCOUNT ADMITTING ENCOUNTER LOCATION SOURCE NUMBER CLASS 12/03/2018 [id number] Ambulatory [place] 3 [facility] ing:LAB Repository 12/03/2018/ [id number] Ambulatory BMSBuilding:B [place] 9 0 [facility] Repository 10/31/2018 [id number] Bonnie Ambulatory [place] 0 [facility] ing:WP Repository 10/26/2018/ [id number] Ambulatory [place] 8 2 [facility] ing:WPOUTRoom Repository : OLRM 10/19/2018 [id number] Ambulatory [place] 5 [facility] ing:US Repository 10/18/2018/ [id number] Bonnie Inpatient [place] 8 5 [facility] ing:WPRoom: Repository DM529Gze: 1 10/18/2018 [id number] Marcanthony, Ambulatory BMSBuilding:B [place] 8 [place] MS.[facility] Repository 10/18/2018 [id number] Bonnie, Ambulatory BMSBuilding:B [place] 3 [place] [facility] Repository 10/18/2018 [id number] Bonnie, Ambulatory BMSBuilding:B [place] 1 [place] [facility] Repository 10/18/2018 [id number] Bonnie, Ambulatory BMSBuilding:B [place] 6 [place] MS.[facility] Repository 10/15/2018/ [id number] Ambulatory BMSBuilding:B [place] 8 9 [facility] Repository 10/10/2018 [id number] Ambulatory [place] [address] [facility] ing:LABSPEC Repository 10/10/2018/ [id number] Ambulatory BMSBuilding:B [place] 8 7 [facility] Repository 09/24/2018/ [id number] Ambulatory BMSBuilding:B [place] 8 7 [facility] Repository 09/10/2018/ [id number] Ambulatory BMSBuilding:B [place] 8 7 [facility] Repository 08/27/2018/ [id number] Ambulatory BMSBuilding:B [place] 8 5 [facility] Repository 08/20/2018 [id number] Ambulatory [place] Rad[place] [address] [facility] ing:LAB Repository 08/13/2018 [id number] Ambulatory [place] Rad[place] [address] [facility] ing:LAB Repository 08/13/2018/ [id number] Ambulatory BMSBuilding:B [place] 8 3 [facility] Repository 07/17/2018/ [id number] Ambulatory BMSBuilding:B [place] 8 1 [facility] Repository 07/02/2018 [id number] Ambulatory [place] Rad[place] [address] [facility] ing:OPUS Repository 06/14/2018 [id number] Ambulatory [place] [address] [facility] ing:LABSPEC Repository 06/14/2018/ [id number] Ambulatory BMSBuilding:B [place] 8 4 [facility] Repository 06/09/2018 [id number] Ambulatory [place] 2 [facility] ing:US Repository 05/14/2018/ [id number] Ambulatory BMSBuilding:B [place] 8 9 [facility] Repository 04/13/2018 [id number] Ambulatory BMS [place] 3 [facility] Repository 04/13/2018 [id number] Ambulatory [place]ha Radha 3 [facility] ing:LABSPEC Repository 03/13/2018 [id number] Ambulatory [place] 4 [facility] ing:LAB.FUTUR Repository E PAYERS PAYERS ENCOUNTER GUARANTOR PAYER SUBSCRIBER SOURCE 12/03/2018 CHARO R Primary CHARO R [place] [id number] Insurance:ANTHEMPolic CARPENTERDOB: [facility]ly [facility] y Number: [id number] [facility] [id number] Repository , [place] [address]Awx: brenda Date:0553-48-75UF [place] [id number] [address]QM: 12/03/2018 Secondary NOT GIVENUNK [place] Insurance:SELF PAY [facility] Number: Effective Repository Date:2018-12-03 12/03/2018 CHARO R Primary CHARO R [place] [id number] Insurance:ANTHEMPolic CARPENTERDOB: [facility] y Number: [id number] Medical Center [id number] Repository , [place] [address]Btg: brenda Date:3420-37-35BE [facility] [id number] REGIONAL MEDICAL [facility] [address]DR: 12/03/2018 Secondary NOT GIVENUNK [place] Insurance:SELF PAY [facility] Number: Effective Repository Date:2018-12-03 10/31/2018 CHARO R Primary CHARO R [place] [id number] Insurance:ANTHEMPolic CARPENTERDOB: [facility]ly [facility] y Number: [id number] Medical Center [id number] Repository , [place] [address]Enm: brenda Date:8611-58-06ZA [address] () [address]WV: 10/31/2018 Secondary NOT GIVENUNK [place] Insurance:SELF PAY [facility] Number: Effective Repository Date:2018-09-26 10/26/2018 CHARO R Primary CHARO R [place] [id number] Insurance:ANTHEMPolic CARPENTERDOB: Community MILLER y Number: [id number] Medical Center [id number] Repository , [place] [address]Mkx: brenda Date:4095-54-37TV [address] () [address]QP: 10/26/2018 Secondary NOT GIVENUNK [place] Insurance:SELF PAY [facility] Number: Effective Repository Date:2018-10-26 10/19/2018 CHARO R Primary CHARO R [place] [id number] Insurance:ANTHEMPolic CARPENTERDOB: Community MILLER y Number: [id number] Medical Center [id number] Repository , [place] [address]Vof: brenda Date:5503-05-28LP [address] () [address]BZ: 10/19/2018 Secondary NOT GIVENUNK [place] Insurance:SELF PAY [facility] Number: Effective Repository Date:2018-10-16 10/18/2018 CHARO R Primary CHARO R [place] [id number] Insurance:ANTHEMPolic CARPENTERDOB: Community MILLER y Number: [id number] Medical Center [id number] Repository , [place] [address]Rry: brenda Date:0851-83-17YS [address] () [address]JA: 10/18/2018 Secondary NOT GIVENUNK [place] Insurance:SELF PAY [facility] Number: Effective Repository Date:2018-10-18 10/18/2018 CHARO R Primary CHARO R [place] [id number] Insurance:ANTHEMPolic CARPENTERDOB: Community MILLER y Number: [id number] Medical Center [id number] Repository , [place] [address]Stp: brenda Date:0238-85-69RZ [address] () [address]GD: 10/18/2018 Secondary NOT GIVENUNK [place] Insurance:SELF PAY [facility] Number: Effective Repository Date:2018-10-18 10/18/2018 CHARO R Primary CHARO R [place] [id number] Insurance:ANTHEMPolic CARPENTERDOB: Community MILLER y Number: [id number] Medical Center [id number] Repository , [place] [address]Uzz: brenda Date:0184-33-76FZ [address] () [address]YT: 10/18/2018 Secondary NOT GIVENUNK [place] Insurance:SELF PAY [facility] Number: Effective Repository Date:2018-10-18 10/18/2018 CHARO R Primary CHARO R [place] [id number] Insurance:ANTHEMPolic CARPENTERDOB: Community MILLER y Number: [id number] Medical Center [id number] Repository , [place] [address]Rao: brenda Date:0754-51-39RU [address] () [address]VU: 10/18/2018 Secondary NOT GIVENUNK [place] Insurance:SELF PAY [facility] Number: Effective Repository Date:2018-10-18 10/18/2018 CHARO R Primary CHARO R [place] [id number] Insurance:ANTHEMPolic CARPENTERDOB: Community MILLER y Number: [id number] General [id number] Repository , [place] [address]Ynv: brenda Date:2315-07-97[address]OSPCUZYQUINTON [address] () [address]QO: 10/18/2018 Secondary NOT GIVENUNK [place] Insurance:SELF PAY [facility] Number: Effective Repository Date:2018-10-18 10/15/2018 CHARO R Primary CHARO R [place] [id number] Insurance:ANTHEMPolic CARPENTERDOB: Community MILLER y Number: [id number] Medical Center [id number] Repository , [place] [address]Eib: brenda Date:9056-87-25ZY [address] () [address]QH: 10/15/2018 Secondary NOT GIVENUNK [place] Insurance:SELF PAY [facility] Number: Effective Repository Date:2018-08-30 10/10/2018 CHARO R Primary CHARO R Radha [id number] Insurance:ANTHEMPolic CARPENTERDOB: Community MILLER y Number: [id number] Medical Center [id number] Repository , [place] [address]Vpe: brenda Date:9201-22-97XY [address] () [address]YH: 10/10/2018 Secondary NOT GIVENUNK Radha Insurance:SELF PAY [facility] Number: Effective Repository Date:2018-10-10 10/10/2018 CHARO R Primary CHARO R [place] [id number] Insurance:ANTHEMPolic CARPENTERDOB: Community MILLER y Number: [id number] Medical Center [id number] Repository , [place] [address]Ifv: brenda Date:8700-84-41RK [address], [place] () [address]VC: 10/10/2018 Secondary NOT GIVENUNK Radha Insurance:SELF PAY [facility] Number: Effective Repository Date:2018-10-10 09/24/2018 CHARO R Primary CHARO R [place] [id number] Insurance:ANTHEMPolic CARPENTERDOB: Community MILLER y Number: [id number] Medical Center [id number] Repository , [place] [address]Yyh: brenda Date:1749-94-15NL [address] () [address]LO: 09/24/2018 Secondary NOT GIVENUNK [place] Insurance:SELF PAY [facility] Number: Effective Repository Date:2018-09-24 09/10/2018 CHARO R Primary CHARO R Radha [id number] Insurance:ANTHEMPolic CARPENTERDOB: Community MILLER y Number: [id number] Medical Center [id number] Repository , [place] [address]Eil: brenda Date:2050-91-66CO [address]VMEBDRS, [facility]) [address]BA: 09/10/2018 Secondary NOT GIVENUNK Radha Insurance:SELF PAY [facility] Number: Effective Repository Date:2018-09-10 08/27/2018 CHARO R Primary CHARO R Radha [id number] Insurance:ANTHEMPolic CARPENTERDOB: Community MILLER y Number: [id number] Medical Center [id number] Repository , [place] [address]Jlr: brenda Date:4424-44-61FZ [address]839776FPOVDSL, [facility]) [address]BU: 08/27/2018 Secondary NOT GIVENUNK [place] Insurance:SELF PAY [facility] Number: Effective Repository Date:2018-08-27 08/20/2018 CHARO R Primary CHARO R Radha [id number] Insurance:ANTHEMPolic CARPENTERDOB: Community MILLER y Number: [id number] General [id number] Repository , [place] [address]Moa: brenda Date:0293-37-49TA [address]KLQIXUN, [facility]) [address]PH: 08/20/2018 Secondary NOT GIVENUNK [place] Insurance:SELF PAY [facility] Number: Effective Repository Date:2018-08-14 08/13/2018 CHARO R Primary CHARO R [place] [id number] Insurance:ANTHEMPolic CARPENTERDOB: Community MILLER y Number: [id number] Medical Center [id number] Repository , [place] [address]Cok: brenda Date:5580-17-33CN [address] () [address]BX: 08/13/2018 Secondary NOT GIVENUNK Radha Insurance:SELF PAY [facility] Number: Effective Repository Date:2018-08-13 08/13/2018 CHARO IVANNA Primary CHARO IVANNA Radha [id number] Insurance:ANTHEMPolic CARPENTERDOB: Community MILLER y Number: [id number] Medical Center [id number] Repository , [place] [address]Npn: brenda Date:8737-20-89SJ [address] () [address]DU: 08/13/2018 Secondary NOT GIVENUNK Radha Insurance:SELF PAY [facility] Number: Effective Repository Date:2018-08-13 07/17/2018 CHARO IVANNA Primary CHARO IVANNA [place] [id number] Insurance:ANTHEMPolic CARPENTERDOB: Community MILLER y Number: [id number] General [id number] Repository , [place] [address]Aup: brenda Date:6695-89-14CT [address] () [address]XG: 07/17/2018 Secondary NOT GIVENUNK [place] Insurance:SELF PAY [facility] Number: Effective Repository Date:2018-07-10 07/02/2018 CHARO IVANNA Primary CHARO IVANNA Radha [id number] Insurance:ANTHEMPolic CARPENTERDOB: Community MILLER y Number: [id number] Medical Center [id number] Repository , [place] [address]Gyg: brenda Date:9223-63-05PS [address] () [address]MT: 07/02/2018 Secondary NOT GIVENUNK Radha Insurance:SELF PAY [facility] Number: Effective Repository Date:2018-06-14 06/14/2018 CHARO IVANNA Primary CHARO IVANNA [place] [id number] Insurance:ANTHEMPolic CARPENTERDOB: Community MILLER y Number: [id number] Medical Center [id number] Repository , [place] [address]Oyo: brenda Date:1875-04-44LP [address] () [address]XE: 06/14/2018 Secondary NOT GIVENUNK [place] Insurance:SELF PAY [facility] Number: Effective Repository Date:2018-06-14 06/14/2018 CHARO IVANNA Primary CHARO IVANNA [place] [id number] Insurance:ANTHEMPolic CARPENTERDOB: Community MILLER y Number: [id number] Medical Center [id number] Repository , [place] [address]Mcm: brenda Date:3368-89-14HK [address]JSJXTLR, [place] () [address]YH: 06/14/2018 Secondary NOT GIVENUNK Radha Insurance:SELF PAY [facility] Number: Effective Repository Date:2018-06-14 06/09/2018 CHARO IVANNA Primary CHARO IVANNA [place] [id number] Insurance:ANTHEMPolic CARPENTERDOB: Community MILLER y Number: [id number] General [id number] Repository , [place] [address]Jwv: brenda Date:8549-51-95WN [address]ERGSWQU, [place] () [address]QP: 06/09/2018 Secondary NOT GIVENUNK [place] Insurance:SELF PAY [facility] Number: Effective Repository Date:2018-05-14 05/14/2018 CHARO IVANNA Primary CHARO IVANNA Radha [id number] Insurance:ANTHEMPolic CARPENTERDOB: Community MILLER y Number: [id number] General [id number] Repository , [place] [address]Nco: brenda Date:3559-62-48ZI [address]PYPJQXJ, [place] () [address]XJ: 05/14/2018 Secondary NOT GIVENUNK [place] Insurance:SELF PAY [facility] Number: Effective Repository Date:2018-05-14 04/13/2018 CHARO IVANNA Primary CHARO IVANNA [place] [id number] Insurance:ANTHEMPolic CARPENTERDOB: Community MILLER y Number: [id number] Medical Center [id number] Repository , [place] [address]Yla: brenda Date:2830-71-59DV [address]JLWKDRG, [place] () [address]PB: 04/13/2018 Secondary NOT GIVENUNK [place] Insurance:SELF PAY [facility] Number: Effective Repository Date:2018-04-13 04/13/2018 CHARO IVANNA Primary CHARO IVANNA [place] [id number] Insurance:ANTHEMPolic CARPENTERDOB: Community MILLER y Number: [id number] Medical Center [id number] Repository , [place] [address]Wzp: brenda Date:5141-81-25OP [address]BGWAJEWQUINTON GARCIA () [address]XU: 04/13/2018 Secondary NOT GIVENUNK Radha Insurance:SELF PAY [facility] Number: Effective Repository Date:2018-04-13 03/13/2018 CHARO IVANNA Primary CHARO IVANNA Radha [id number] Insurance:ANTHEMPolic CARPENTERDOB: Community MILLER y Number: [id number] Medical Center [id number] Repository , [place] [address]Zqw: brenda Date:4721-12-60WB [address]SSUKBKN, [place] [facility]) [address]QQ: 03/13/2018 Secondary NOT GIVENUNK [place] Insurance:SELF PAY [facility] Number: Effective Repository Date:2018-03-13
== END ==
PROVIDERS: Referring Provider Obstetrics & Gynecology; Visit Provider Obstetrics & Gynecology
DX: E01.0 Iodine-deficiency related diffuse (endemic) goiter (principal); Z12.4 Encounter for screening for malignant neoplasm of cervix
CPT/HCPCS: 36415; 84439; 84443; 87624; 88175; G0145

== ENCOUNTER → 2018-12-10 10:06 | Outpatient (CLI) | payer BC, SELFPAY ==
[2018-12-03 16:02] VITALS: BMI 43.9
--- NOTE | 2018-12-10 10:09 | US_ITS ---
STUDY: THYROID ULTRASOUND REASON FOR EXAM: Female, 28 years old. Thyromegaly TECHNIQUE: Ultrasound evaluation of the thyroid was performed with real-time and static gayle-scale imaging. COMPARISON: None. FINDINGS: RIGHT LOBE: The right lobe of the thyroid gland measures 5.0 x 2.3 x 1.4 cm. There is a homogeneous echotexture. There are no demonstrated solid, cystic or complex lesions. LEFT LOBE: The left lobe of the thyroid gland measures 5.0 x 1.9 x 1.7 cm. There is a homogeneous echotexture. There are no demonstrated solid, cystic or complex lesions. ISTHMUS: The isthmus measures 4 mm . US/Thyroid IMPRESSION: Normal ultrasound examination of the thyroid. Electronically Signed: Jhon Madsen MD at 10:49 EST Tel , Service support ,
== END ==
PROVIDERS: Referring Provider Obstetrics & Gynecology; Visit Provider Obstetrics & Gynecology
DX: E01.0 Iodine-deficiency related diffuse (endemic) goiter (principal)
CPT/HCPCS: 76536

== ENCOUNTER → 2020-07-09 16:46 | Outpatient (CLI) | payer BC, SELFPAY ==
[2020-07-09 13:26] VITALS: BMI 39.8
[2020-07-09 17:54] LABS: Amphetamine Urine VISTA NEGATIVE (<1000 ng/mL); Barbiturate Urine VISTA NEGATIVE (< 200 ng/mL); Benzodiazepine Urine VISTA NEGATIVE (< 200 ng/mL); Cocaine Urine VISTA NEGATIVE (< 300 ng/mL); Ecstacy Urine VISTA NEGATIVE (< 500 ng/mL); Methadone Urine VISTA NEGATIVE (< 300 ng/mL); PCP Urine VISTA NEGATIVE (< 25 ng/mL); THC Urine VISTA NEGATIVE (< 50 ng/mL); Vista UDS pH Range 7
[2020-07-13 20:07] LABS: Chlamydia By Nucleic Acid AMP Negative (Negative)
[2020-07-14 04:43] LABS: Gonococcus By Nucleic Acid AMP Negative (Negative)
== END ==
PROVIDERS: Referring Provider Obstetrics & Gynecology; Visit Provider Obstetrics & Gynecology
DX: O09.90 Supervision of high risk pregnancy, unspecified, unspecified trimester (principal); Z3A.00 Weeks of gestation of pregnancy not specified
CPT/HCPCS: 80307; 87086; 87088; 87491; 87591

== ENCOUNTER 2020-07-14 08:29 | Day surgery (SDC) | payer BC, SELFPAY ==
[2020-07-13 08:12] VITALS: BMI 39.8
[2020-07-14] VITALS (8 sets, daily range): BP systolic 99–125; BP diastolic 58–73; PULSE 67–82; RESP 16; TEMP 36.2–36.7; O2SAT 97–100; BMI 39.4
--- NOTE | 2020-07-14 07:21 | HP.PCM_ITS ---
- Problem List (1) Missed Status: Acute Comment: discussed options for management plan surgical. History and Physical Date of Admission: 07/14/20 Intake Vital Signs 07/13/20 BMI 39.8 07/13/20 Height 5 ft 4 in 07/13/20 Weight: 230 lb 07/13/20 BMI 39.4 07/13/20 BP 104/80 Intake Visit Reasons: Miscarriage f/u, rescan Chief Complaint: follow up SAB Director Nicu Required: No Is patient in pain?: No Allergies No Known Allergies Allergy (Verified 07/13/20 08:11) Medications prenat.vits,brain,sws-fweu-fsbqx 1 tab PO QDAY 05/14/18 [History Confirmed 07/13/20] Last Menstral Period: 05/09/20 Zika: Zika virus screening: Negative : No PFSH PFSH Medical History GERD (gastroesophageal reflux disease) (Acute) Ovarian cyst (Acute) Surgical History H/O endoscopy (Acute) H/O wisdom tooth extraction (Acute) Family History Mother Acid reflux Osteoporosis Acquired scoliosis Father Acid reflux Diverticula of intestine Sleep apnea Social History (Updated 07/13/20 @ 08:[address] Alix Nicole MD) adopted: No household members: spouse housing: house number of children: 1 current occupational status: employed current occupation: [employer] current occupational exposures/hazards: No pets and animals: Yes Smoking Status: Former smoker second hand exposure: No alcohol intake: current alcohol intake frequency: other substance use type: does not use seatbelt use: always do you feel safe at home: Yes additional social history: Spouse- Bryant Step Dght- Raelah Pregancy History 2 Elective abortions Hx Para 1 Spontaneous abortions Hx # Term Pregnancies Ectopic pregnancies Hx # Pregnancies Multiple births # of living children 1 Past Pregnancies Del. Date Name GA/Weeks Outcome Route Bth Weight Infant Gen Labor Lgth Anesthesia Del Locatn Provider FOB 10/18/18 Boby 38 live - full term NS VD Female epidural [facility] SM Delivery Date: 10/18/18 On 10/25/18 @ 09:09 Pippa Hamm PROM HPI Miscarriage f/u, rescan: Details: CHARO ALVAREZ is a 30 year old who presents for [facility] of possible miscarriage. she hasn't had any bleeding but has had sacral back pain. she denies fevers and fould discharge. she had an ultrasound that showed a 5 mm CRl with no FHT and now it is 4 mm with no FHT and sac is releasing. OB Visit JP Calculator Estimated Delivery Date Method Current WG Current Estimate 02/13/21 LMP (Certain) 9w 2d Expected Delivery Route/Plan Labor Preferences- CB/BF classes: [] labor support person: [] labor intervention preferences: [] pain management options preferred: [] cut cord/dad catch: [] : [] PP control planned: [] discussed possible routes of delivery and associated risks: [] special requests: [] Specific Issue/Plans flu vaccine: [] tdap vaccine: [] rhogam: [] LARC form signed: [] Problem list reviewed and updated with the most current plan of care details and appropriate orders placed. Relevant counseling for the gestational age provided. Continue routine care and follow up unless otherwise noted in visit notes/problem list details Initial Weight: 230 lb Date EGA Weight BP Urine Prot Glucose FHR FuHt Pres Dilation Effaced St Visit Note 07/09/20 8w 5d 232 lb (+2 lb) 120/78 SM- CRL SM- CRL5mm no fht seen, recommend fu monday for repeat us 07/13/20 9w 2d 230 lb (+0 oz) 104/80 ACOG First Trimester First Trimester: Second Trimester Second Trimester: Signs and Symptoms of Labor, Selecting a care provider, Reproductive Life Planning, Care Planning, Depression/Anxiety and Intimate Partner Violence; discussed Tobacco Cessation Diagnostics Diagnostics Diagnostics Blood Type A POSITIVE 10/18/18 Antibody Screen NEGATIVE 10/18/18 Hgb 12.2 g/dl (12.0-15.0) 10/18/18 Hct 36.2 % (37-47) L 10/18/18 Details: HIV: Urine Culture: Sequential Screen: NIPT Screen: ROS Const Reports as per HPI, Denies fever(s) ENT Reports system reviewed and no additional complaints, except as docu Card Reports system reviewed and no additional complaints, except as docu Resp Reports system reviewed and no additional complaints, except as docu GI Reports as per HPI Reports as per HPI, Reports abnormal vaginal bleeding Musc Reports system reviewed and no additional complaints, except as docu Skin/Breast Reports system reviewed and no additional complaints, except as docu Neuro Yes system reviewed and no additional complaints, except as docu Endo Reports system reviewed and no additional complaints, except as docu Exam Const General: healthy appearing, comfortable, no acute distress HENMT Head: normal to inspection, normocephalic Neck Neck: no lymphadenopathy noted Thyroid: thyroid normal Chest Chest palpation & inspection: normal inspection of the chest Resp Effort & Inspection: normal respiratory effort Cardio Rate: regular rate Rhythm: regular rhythm GI Inspection: normal to inspection Palpation: soft, nontender External Female Exam: normal external appearance Speculum Exam - Vagina: normal appearance of the vagina, vaginal bleeding Bimanual Exam- Vagina & Uterus: uterine shape normal, uterus non-tender OB/External & Speculum: vaginal bleeding Speculum Exam: vaginal bleeding Skin General: no rashes or lesions noted Neuro General: no focal motor deficits Extrem General: normal to inspection, no pedal edema Psych Appearance: grossly normal Assessment & Plan Problems 1. Missed O02.1 discussed options for management plan surgical. Plan After discussing the patient's diagnosis and treatment plan options, patient wishes to proceed with surgical management. I have discussed with the patient the risks, benefits, and alternatives of the procedure which include but are not limited to risks of anesthesia, bleeding, infection, possible damage to bowel, bladder, or surrounding vasculature which could lead to additional surgery to evaluate any complications. Patient agrees to procedure and wishes to proceed. ACOG/uptodate references given for additional information regarding procedure. Coding Level of Care Code Off vis,est,level 4 Diagnoses Missed O02.1 UPDATE- I have seen the patient and performed any clinically relevant updates to the history and physical exam. Alix Nicole MD
[2020-07-14] MEDS: Lactated Ringers 1,000 ML 125 ML IV (09:02)
[2020-07-14] MEDS: Doxycycline 100 MG CAPSULE PO (09:03)
--- NOTE | 2020-07-14 09:10 | PCM.OPRPT ---
Problem List (1) Missed Status: Acute Comment: discussed options for management plan surgical. Report of Operation Date of Procedure: 07/14/20 Pre-Operative Diagnosis: missed ab Surgery/Procedure Performed:: suction d and c Description of Surgical Findings:: 8 week uterus Type of Anesthesia:: Local MAC Special Medications: none Specimen's removed: poc Drains: none Fluids Replaced: crystalloid Description of Procedure: Patient was taken to the operating room and placed under MAC local anesthesia. She was prepped and draped in the normal sterile fashion the dorsal lithotomy position. Bladder was drained of clear urine and anterior lip of the cervix was grasped and the uterus sounded to []. Cervix was progressively dilated to allow passage of a [] suction curette. Progressive passes were made removing the retained products of conception without complication. Sharp curettage confirmed complete removal of the retained products. All instruments were removed from the vagina and excellent hemostasis was noted and the patient was taken to recovery in stable condition. Grafts/Implants Used: none Multi Select Codes - Urinary/Genital Urinary/Genital CPT Codes: 37437 Surg Trtmt missed Ab 1TM
--- NOTE | 2020-07-14 09:12 | DCINST_ITS ---
Discharge Diet: No Restrictions Discharge Activity: Return to Normal Activity, May Shower, May Take a Tub Bath Allergies/Adverse Reactions: Allergies No Known Allergies Allergy (Verified 07/14/20 08:34) Medications to take at Discharge prenat.vits,brain,yuy-xmqi-jqooa 1 tab PO QDAY 05/14/18 Metronidazole [Noritate] 60 gm TP PRN PRN 07/13/20 Omeprazole [Prilosec] 20 mg PO PRN PRN 07/13/20 Orders to be completed after discharge: Type & Screen - PAT ONLY Time Frame: 07/14/20, Facility: [facility], Location: Laboratory CBC-Complete Blood Cnt No Diff Time Frame: 07/14/20, Facility: [facility], Location: Laboratory Primary Care Physician: Care Physician,No Primary [Primary Care Provider] - Test Results: Test results from this visit will be discussed in further detail at your follow- up appointment, if applicable. Please Follow Up With: Alix Nicole MD - [phone]
[2020-07-14 09:18] LABS: Hematocrit 40.2 % (37-47); Hemoglobin 13.5 g/dL (12.0-15.0); Mean Corp Hgb Conc 33.6 g/dL (32-36); Mean Corpuscular Hgb 27.4 pg (27.0-32.0); Mean Corpuscular Volume 81.5 fL (81-99); Mean Platelet Vol. 8.8 fl (6.2-12.0); Platelet Count 265 K/mm3 (150-450); RBC Distribution Width CV 13.3 % (11.6-14.6); RBC Distribution Width SD 38.6 fl (35.1-43.9); Red Blood Count 4.93 M/mm3 (4.2-5.4); White Blood Count 8.4 K/mm3 (4.4-11.0)
--- NOTE | 2020-07-14 10:05 | POC_PTH ---
PATIENT: CHARO ALVAREZ LOC: [facility] [place] U#:[id number] AGE/SX: 30/F ROOM: RE07/14/[address]: Dr. Alix Nicole MD : 1990 BED: DIS: 07/14/2020 SPEC #: [id number] RECD: 07/14/20 11:33 STATUS: JOSHUA NATALIE #: [id number] ANIKA: 07/14/20 10:[address]: Alix Nicole DEPT: SURGICAL PATHOLOGY RECD BY: Aramis Moon ENTERED: 07/14/20 11:53 SP TYPE: PROD CONC OTHR DR: No Primary Care Phys Tissues: Product of conception, NOS Procedures: Surgery Specimen Level IV HEADER OPERATION: Suction D & C PRE-OP DIAGNOSIS: Missed TISSUE SUBMITTED: Products of conception MICROSCOPIC DIAGNOSIS Products of conception: [place]id[place], gestational endometrium and immature chorionic villi (products of conception). SJ:atylor 9/2/20 MICROSCOPIC DESCRIPTION Slides are reviewed. GROSS DESCRIPTION Received in fixative is one container labeled with the patient's name and designated products of conception. The specimen consists of multiple fragments of hemorrhagic soft tissue that in aggregate measure 7 x 7 x 2 cm. tissue is not identified. Computer Game Designer tissue is submitted in two cassettes. / SJ:taylor 07/14/20 TC:5 CPT: 98145
== END 2020-07-14 12:16 | disposition home or self-care (01) ==
LOC: SDC 08:32 → AC 08:33
PROVIDERS: Referring Provider Obstetrics & Gynecology; Visit Provider Obstetrics & Gynecology
PROC: (CPT 59820; principal; 2020-07-14 09:50)
DX: O02.1 Missed abortion (principal); Z87.891 Personal history of nicotine dependence
CPT/HCPCS: 01965; 59820; 85027; 86850; 86900; 86901; 88305; J7120; J2405

== ENCOUNTER → 2021-10-18 09:16 | Outpatient (CLI) | payer BC, SELFPAY ==
[2021-10-18 10:23] LABS: hCG Titer Quant., Serum 3416 mIU/mL (1-3)
== END ==
PROVIDERS: Referring Provider Obstetrics & Gynecology; Visit Provider Obstetrics & Gynecology
DX: N91.2 Amenorrhea, unspecified (principal)
CPT/HCPCS: 36415; 84702

== ENCOUNTER → 2021-10-20 07:44 | Outpatient (CLI) | payer BC, SELFPAY ==
[2021-10-20 08:34] LABS: hCG Titer Quant., Serum 5182 mIU/mL (1-3)
== END ==
PROVIDERS: Referring Provider Obstetrics & Gynecology; Visit Provider Obstetrics & Gynecology
DX: N91.2 Amenorrhea, unspecified (principal)
CPT/HCPCS: 36415; 84702

== ENCOUNTER → 2021-10-22 14:27 | Outpatient (CLI) | payer BC, SELFPAY ==
--- NOTE | 2021-10-22 14:31 | US_ITS ---
STUDY: FIRST TRIMESTER OBSTETRICAL ULTRASOUND REASON FOR EXAM: Female, 31 years old well being LMP: 09/09/2021 TECHNIQUE: Transvaginal TECHNICAL QUALITY: Adequate. PRIOR ULTRASOUND: None. FINDINGS: There is visualization of a single gestational sac in a normal intrauterine position. The mean sac diameter (MSD) measures 11 mm, indicating an estimated gestational age (EGA) of 5 weeks, 5 days. The gestational sac shape is within normal limits. There is a visualized yolk sac. The yolk sac measures 4 mm. The placenta is non-visualized. There is visualization of a live embryo. The crown-rump length (CRL) measures 4 mm, indicating an estimated gestational age (EGA) of 6 weeks, 1 days. There is demonstrated cardiac activity with a heart rate of 79 bpm. The estimated gestation age (EGA) by LMP is 6 weeks, 1 days. The estimated date of delivery (JP) by LMP is 06/16/2022. The estimated gestation age (EGA) by US is 5 weeks, 6 days. The estimated date of delivery (JP) by US is 06/18/2022. The uterus measures 9.3 x 5.8 x 6.9 cm. There is no demonstrated uterine fibroid. The cervix is closed. The right ovary measures 2.2 x 1.5 x 1.8 cm. There is no right ovarian cyst. There is no visualized right adnexal mass or complex lesion. The left ovary is not visualized. There is no fluid in the cul de sac. US/Transvaginal w/Preg US IMPRESSION: Living of 5 weeks 6 days as described above. bradycardia with a heart rate of 79 bpm. Electronically Signed: Gordy Bull MD at 16:50 EST Tel , Service support ,
== END ==
PROVIDERS: Referring Provider Obstetrics & Gynecology; Visit Provider Obstetrics & Gynecology
DX: Z34.90 Encounter for supervision of normal pregnancy, unspecified, unspecified trimester (principal)
CPT/HCPCS: 76817

== ENCOUNTER → 2021-10-25 14:46 | Outpatient (CLI) | payer BC, SELFPAY ==
[2021-10-25 15:39] LABS: Hemoglobin A1c 5.3 % (3.8-5.6)
[2021-10-25 15:41] LABS: Thyroid Stim Hormone (TSH) 2.02 uIU/mL (0.358-3.74)
[2021-10-28 04:07] LABS: Dilute Prothrombin Time (dPT) 40.4 sec (0.0-47.6); Dilute Russell Viper Venom 33.6 sec (0.0-47.0); PTT-LA 35.3 sec (0.0-51.9); Thrombin Time 14.8 sec (0.0-23.0); dPT Confirm Ratio 1.02 Ratio (0.00-1.34)
[2021-10-28 07:28] LABS: Anti-Cardiolipin Ab, IgA, Qn < 9 APL U/mL (0-11); Anti-Cardiolipin Ab, IgG, Qn < 9 GPL U/mL (0-14); Anti-Cardiolipin Ab, IgM, Qn 13 MPL U/mL (0-12); Beta-2-Glycoprotein I IgA <9 (0-25); Beta-2-Glycoprotein I IgG <9 (0-20); Beta-2-Glycoprotein I IgM <9 (0-32); Interpretation Comment: (.)
== END ==
PROVIDERS: Referring Provider Obstetrics & Gynecology; Visit Provider Obstetrics & Gynecology
DX: O02.1 Missed abortion (principal); N96 Recurrent pregnancy loss; Z3A.00 Weeks of gestation of pregnancy not specified
CPT/HCPCS: 36415; 83036; 84443; 86146; 86147

== ENCOUNTER 2022-01-21 16:06 | Outpatient (CLI) | payer BC, SELFPAY ==
[2022-01-25 17:08] LABS: Dilute Prothrombin Time (dPT) 38.4 sec (0.0-47.6); Dilute Russell Viper Venom 33.9 sec (0.0-47.0); PTT-LA 33.2 sec (0.0-51.9); dPT Confirm Ratio 1.12 Ratio (0.00-1.34)
[2022-01-25 17:42] LABS: Anti-Cardiolipin Ab, IgA, Qn < 9 APL U/mL (0-11); Anti-Cardiolipin Ab, IgG, Qn < 9 GPL U/mL (0-14); Anti-Cardiolipin Ab, IgM, Qn < 9 MPL U/mL (0-12); Beta-2-Glycoprotein I IgG <9 (0-20)
[2022-01-25 17:43] LABS: Beta-2-Glycoprotein I IgA <9 (0-25); Beta-2-Glycoprotein I IgM <9 (0-32); Interpretation Comment: (.)
== END 2022-01-21 23:59 | disposition home or self-care (01) ==
PROVIDERS: Visit Provider Obstetrics & Gynecology
DX: N96 Recurrent pregnancy loss (principal)
CPT/HCPCS: 36415; 86146; 86147

== ENCOUNTER 2022-02-25 08:18 | Outpatient (CLI) | payer BC, SELFPAY ==
[2022-02-25 12:40] LABS: Absolute Lymphocyte Count 2.11 X10^3/uL (0.83-4.51); Absolute Neutrophil Count 4.9 X10^3/uL (2.0-7.7); Basophil# 0.02 X10^3/uL; Basophil% 0.3 % (0-1); Eosinophil# 0.06 X10^3/uL; Eosinophils% 0.8 % (0-5); Hematocrit 40.3 % (37-47); Lymphocyte # 2.11 X10^3/ul (0.83-4.51); Lymphocyte % 27.8 % (19-41); Mean Corp Hgb Conc 32.3 g/dL (32-36); Mean Corpuscular Hgb 25.2 pg (27.0-32.0); Mean Corpuscular Volume 78.3 fL (81-99); Mean Platelet Vol. 9.7 fl (6.2-12.0); Monocyte# 0.47 X10^3/uL; Monocyte% 6.2 % (0-10); NRBC Flagged by Analyzer 0 % (0-5); Neutrophil % 64.6 % (47-70); Platelet Count 351 K/mm3 (150-450); RBC Distribution Width CV 13.5 % (11.6-14.6); RBC Distribution Width SD 38.5 fl (35.1-43.9); Red Blood Count 5.15 M/mm3 (4.2-5.4); White Blood Count 7.6 K/mm3 (4.4-11.0)
[2022-02-25 12:58] LABS: Vitamin D,25 Hydroxy 34.7 ng/mL
[2022-02-25 13:04] LABS: ALB/GLOB Ratio 1.1 RATIO (0.9-2.4); AST(SGOT) 11 U/L (15-37); Alanine Aminotransfer ALT/SGPT 31 U/L (13-56); Albumin, Serum 3.9 g/dL (3.2-5.0); Alkaline Phosphatase 78 U/L (45-117); Anion Gap 6 (5-15); BUN 14 mg/dL (7-18); BUN/Creat Ratio 25.5 RATIO (10-20); Calcium,Total 8.9 mg/dL (8.5-10.1); Chloride 107 mmol/L (98-107); Cholesterol 120 mg/dL (200); Creatinine, Serum 0.55 mg/dL (0.55-1.02); EST Glomerular Filtration Rate 137 mL/min (>60); Est Glom Filt Rate - Afr Amer 165 mL/min (>60); Free T3 3.3 pg/mL (2.18-3.98); Globulin 3.5 g/dL (2.2-4.2); Glucose 95 mg/dL (74-106); High Density Lipoprotein 44 mg/dL; Potassium 4.1 mmol/L (3.5-5.1); Protein, Total 7.4 g/dL (6.4-8.2); Sodium Level 137 mmol/L (136-145); T4 Free Direct 0.97 ng/dL (0.76-1.46); Thyroid Stim Hormone (TSH) 1.68 uIU/mL (0.358-3.74); Triglycerides 67 mg/dL; Very Low Density Lipoprotein 13 mg/dL (5-40)
== END 2022-02-25 23:59 | disposition home or self-care (01) ==
PROVIDERS: Visit Provider Internal Medicine
DX: Z00.00 Encounter for general adult medical examination without abnormal findings (principal); E55.9 Vitamin D deficiency, unspecified
CPT/HCPCS: 36415; 80053; 80061; 82306; 84439; 84443; 84481; 85025

== ENCOUNTER → 2022-09-12 | Outpatient (CLI) | payer BC, SELFPAY ==
[2022-09-12 19:31] LABS: Amphetamine Urine VISTA NEGATIVE (<1000 ng/mL); Barbiturate Urine VISTA NEGATIVE (< 200 ng/mL); Benzodiazepine Urine VISTA NEGATIVE (< 200 ng/mL); Cocaine Urine VISTA NEGATIVE (< 300 ng/mL); Ecstacy Urine VISTA NEGATIVE (< 500 ng/mL); Methadone Urine VISTA NEGATIVE (< 300 ng/mL); PCP Urine VISTA NEGATIVE (< 25 ng/mL); THC Urine VISTA NEGATIVE (< 50 ng/mL); Vista UDS pH Range 5
[2022-09-15 08:10] LABS: Chlamydia By Nucleic Acid AMP Negative (Negative)
[2022-09-15 16:07] LABS: Gonococcus By Nucleic Acid AMP Negative (Negative)
[2022-09-18 18:54] LABS: HPV APTIMA, High Risk Negative (Negative)
== END | disposition home or self-care (01) ==
LOC: LABSPEC 16:57
PROVIDERS: Visit Provider Obstetrics & Gynecology
DX: Z34.91 Encounter for supervision of normal pregnancy, unspecified, first trimester (principal)
CPT/HCPCS: 80307; 87086; 87491; 87591; 87624; 88175; G0145

== ENCOUNTER → 2022-09-26 | Outpatient (CLI) | payer BC, SELFPAY ==
--- NOTE | 2022-09-26 16:12 | US_ITS ---
EXAM: US , TRANSVAGINAL CLINICAL INDICATION: viability-bleeding TECHNIQUE: Real-time transvaginal obstetrical ultrasound of the maternal pelvis and a first trimester with image documentation. Transvaginal imaging was used for better evaluation of the fetus and adnexa. This report was created using [employer] report generation technology. COMPARISON: None. FINDINGS: GESTATION: Single live intrauterine gestation. Cardiac activity is documented with heart rate of 189. Mean sonographic estimated gestational age based on crown-rump length measures 11 weeks 2 days.. PLACENTA/AMNIOTIC FLUID: Small subchorionic hemorrhage measures approximately 1.6 cm. UTERUS/CERVIX: Gravid uterus measures 13 x 7.1 x 10.1 cm. OVARIES: Left ovary is normal in size and echogenicity measuring 2.5 x 1.3 cm. Right ovary is normal in size and echogenicity measuring 3.1 x 1.7 x 2.7 cm. Bilateral ovarian flow is documented. No mass. FREE FLUID: No free fluid. US/Transvaginal w/Preg US IMPRESSION: 1. Single live intrauterine gestation with EGA 11 weeks 2 days.. 2. Small subchorionic hemorrhage. Electronically Signed: Kamila Jennings MD at 23:51 EST Reading Location ID and State: [id number] / Tel , Service support ,
== END | disposition home or self-care (01) ==
LOC: US 16:11
PROVIDERS: Referring Provider Obstetrics & Gynecology; Visit Provider Obstetrics & Gynecology
DX: O99.891 Other specified diseases and conditions complicating pregnancy (principal); N96 Recurrent pregnancy loss; Z3A.11 11 weeks gestation of pregnancy
CPT/HCPCS: 76817

== ENCOUNTER → 2022-10-04 | Outpatient (CLI) | payer BC, SELFPAY ==
[2022-10-04 09:30] LABS: Absolute Lymphocyte Count 1.68 X10^3/uL (0.83-4.51); Basophil# 0.02 X10^3/uL; Basophil% 0.2 % (0-1); Eosinophil# 0.03 X10^3/uL; Eosinophils% 0.4 % (0-5); Hematocrit 38.2 % (37-47); Hemoglobin 13.3 g/dL (12.0-15.0); Lymphocyte # 1.68 X10^3/ul (0.83-4.51); Lymphocyte % 20.8 % (19-41); Mean Corp Hgb Conc 34.8 g/dL (32-36); Mean Corpuscular Hgb 27.6 pg (27.0-32.0); Mean Corpuscular Volume 79.3 fL (81-99); Mean Platelet Vol. 8.5 fl (6.2-12.0); Monocyte# 0.32 X10^3/uL; NRBC Flagged by Analyzer 0 % (0-5); Neutrophil % 74.4 % (47-70); Platelet Count 253 K/mm3 (150-450); RBC Distribution Width SD 39.9 fl (35.1-43.9); Red Blood Count 4.82 M/mm3 (4.2-5.4); White Blood Count 8.1 K/mm3 (4.4-11.0)
[2022-10-04 10:07] LABS: Glucose Challenge Gest 1H 50g 169 mg/dL (70-140)
[2022-10-04 10:27] LABS: NATERA MAILED SPECIMEN
[2022-10-04 11:10] LABS: HIV - WCH Non-Reactive (Nonreactive); Hepatitis B Surface Antigen Non-Reactive (Nonreactive); Hepatitis C Antibody Non-Reactive (Nonreactive); Rubella IgG Reactive (Nonreactive); Syphilis Antibodies Non-reactive
== END | disposition home or self-care (01) ==
LOC: PAVLAB 09:04
PROVIDERS: Referring Provider Obstetrics & Gynecology; Visit Provider Obstetrics & Gynecology
DX: Z34.81 Encounter for supervision of other normal pregnancy, first trimester (principal)
CPT/HCPCS: 36415; 82950; 85025; 86703; 86762; 86780; 86803; 86850; 86900; 86901; 87340

== ENCOUNTER → 2022-10-24 | Outpatient (CLI) | payer BC, SELFPAY ==
[2022-10-24 10:56] LABS: Glucose GTT-Gestation. Fasting 90 mg/dL (<105)
[2022-10-24 12:28] LABS: Glucose GTT-Gestational 1 Hr 183 mg/dL (<190)
[2022-10-24 13:32] LABS: Glucose GTT-Gestational 2 Hr 158 mg/dL (<165)
[2022-10-24 14:09] LABS: Glucose GTT-Gestational 3 Hr 63 L (<145)
== END | disposition home or self-care (01) ==
LOC: LAB 10:00
PROVIDERS: Referring Provider Obstetrics & Gynecology; Visit Provider Obstetrics & Gynecology
DX: O99.810 Abnormal glucose complicating pregnancy (principal)
CPT/HCPCS: 36415; 82951; 82952

== ENCOUNTER 2022-11-30 11:30 | Outpatient (RCR) | payer BC, SELFPAY | END 2022-12-13 23:59 | LOC: DC 11:30 | PROVIDERS: Referring Provider Obstetrics & Gynecology; Visit Provider Obstetrics & Gynecology | DX: O24.419 Gestational diabetes mellitus in pregnancy, unspecified control (principal); Z3A.00 Weeks of gestation of pregnancy not specified | CPT/HCPCS: 97802; 97803 ==

== ENCOUNTER → 2023-01-13 | Outpatient (CLI) | payer BC, SELFPAY ==
[2023-01-13 16:32] LABS: Absolute Lymphocyte Count 1.93 X10^3/uL (0.83-4.51); Absolute Neutrophil Count 9.4 X10^3/uL (2.0-7.7); Basophil# 0.02 X10^3/uL; Basophil% 0.2 % (0-1); Eosinophil# 0.04 X10^3/uL; Eosinophils% 0.3 % (0-5); Lymphocyte # 1.93 X10^3/ul (0.83-4.51); Mean Corp Hgb Conc 33.3 g/dL (32-36); Mean Corpuscular Hgb 27.3 pg (27.0-32.0); Mean Platelet Vol. 9.4 fl (6.2-12.0); Monocyte# 0.68 X10^3/uL; Monocyte% 5.6 % (0-10); NRBC Flagged by Analyzer 0 % (0-5); Neutrophil # 9.35 X10^3/uL (2.7-7.7); Neutrophil % 77.4 % (47-70); Platelet Count 307 K/mm3 (150-450); RBC Distribution Width SD 41.8 fl (35.1-43.9); Red Blood Count 4.39 M/mm3 (4.2-5.4); White Blood Count 12.1 K/mm3 (4.4-11.0)
== END | disposition home or self-care (01) ==
LOC: LAB 14:13
PROVIDERS: PCP Internal Medicine; Referring Provider Obstetrics & Gynecology; Visit Provider Obstetrics & Gynecology
DX: O09.90 Supervision of high risk pregnancy, unspecified, unspecified trimester (principal)
CPT/HCPCS: 36415; 85025

== ENCOUNTER → 2023-02-27 | Outpatient (CLI) | payer BC, SELFPAY ==
--- NOTE | 2023-02-27 08:37 | US_ITS ---
INDICATION: Growth scan EXAMINATION: Ultrasound US OB Limited 1 Or More Fetus TECHNIQUE: transabdominal pelvic ultrasound was performed. Grayscale, spectral waveform, and color flow Doppler evaluation of the adnexa. COMPARISON: 09/26/2022 with JP 04/21/2023 LMP: 07/15/2022 Beta-hCG: Unknown. Provided EGA: 32 weeks 3 days FINDINGS: INTRAUTERINE GESTATION(s): Single. ESTIMATED GESTATIONAL AGE: 34 weeks 0 days ESTIMATED DUE DATE (JP): 04/10/2023 HEART MOTION is 133 bpm. AMNIOTIC FLUID INDEX (ERIC): 21.9 cm ESTIMATED WEIGHT: 2278 g or 5 lbs. 0 oz. Percentile 81st%. BIOPHYSICAL PROFILE (BPP): Not assessed. PRESENTATION: Breech PLACENTA: Anterior. There is no placenta previa or abruption. CERVIX: The cervix is closed. 4.4 cm cervical length. Demonstrated anatomy remarkable for 5 mm dilatation right renal pelvis. US/OB Limited With Biometrics IMPRESSION: Single live intrauterine of 34 weeks 0 days. Concordant interval growth. Electronically Signed: Piyush Stoner MD at 17:46 EDT ,
== END | disposition home or self-care (01) ==
LOC: US 08:32
PROVIDERS: PCP Internal Medicine; Visit Provider Registered Nurse
DX: O24.319 Unspecified pre-existing diabetes mellitus in pregnancy, unspecified trimester (principal); Z3A.00 Weeks of gestation of pregnancy not specified
CPT/HCPCS: 76816

== ENCOUNTER → 2023-03-29 | Outpatient (CLI) | payer BC, SELFPAY ==
--- NOTE | 2023-03-29 12:26 | US_ITS ---
STUDY: SECOND AND THIRD TRIMESTER OBSTETRICAL ULTRASOUND - LIMITED REASON FOR EXAM: Female, 32 years old Growth -- 36 Weeks LMP: Not provided PRIOR ULTRASOUND: None. TECHNIQUE: Standard TECHNICAL QUALITY: Adequate. FINDINGS: There is a single intrauterine fetus. The fetus is in a cephalic presentation. There is demonstrated cardiac activity with a heart rate of 144 bpm. There is a normal amniotic fluid volume. The largest amniotic fluid pocket measures 5.1 cm. The amniotic fluid index (ERIC) is 19.2 cm. The placenta is anterior. The placenta is not low-lying. The cervix measures 4.1 cm in length. BIOMETRY: BPD: 9.08 millimeters: 36 weeks, 6 days HC: 33.2 mm: 38 weeks, 6 days AC: 32.66 mm: 36 weeks, 4 days FL: 17.05 lm: 36 weeks, 1 days Age by LMP: Not applicable age by prior ultrasound 38 weeks 2 days. age by current US: 37 weeks, 1 days. JP by current US: 04/18/2023. Estimated weight: 2991 grams, +/- 449 grams, 52.5 percentile. Gender: US/OB Limited With Biometrics IMPRESSION: Single viable intrauterine gestation. Mean gestational age 37 weeks 1 day. Borderline polyhydramnios. Electronically Signed: Ishmael Nicole MD, MONO at 22:01 EDT ,
== END | disposition home or self-care (01) ==
PROVIDERS: PCP Internal Medicine; Referring Provider Nurse Practitioner Women's Health; Visit Provider Nurse Practitioner Women's Health
DX: O24.319 Unspecified pre-existing diabetes mellitus in pregnancy, unspecified trimester (principal); Z3A.00 Weeks of gestation of pregnancy not specified
CPT/HCPCS: 76816; 87077; 87081; 87186

== ENCOUNTER 2023-04-14 07:00 | Inpatient (IN) | payer BC, SELFPAY ==
[2023-04-14] VITALS (35 sets, daily range): BP systolic 101–144; BP diastolic 52–76; PULSE 76–154; RESP 14–16; TEMP 36.4–37.1; O2SAT 97–100; BMI 42.6
[2023-04-14] MEDS: Lactated Ringers 1,000 ML 50 ML IV (08:05)
[2023-04-14] MEDS: Oxytocin 15 Units/NS 250ml 15 UNITS/250 ML IV.SOLN 2 UNITS IV (08:05)
[2023-04-14 08:23] LABS: Absolute Lymphocyte Count 1.85 X10^3/uL (0.83-4.51); Absolute Neutrophil Count 7.3 X10^3/uL (2.0-7.7); Basophil# 0.03 X10^3/uL; Basophil% 0.3 % (0-1); Eosinophil# 0.04 X10^3/uL; Eosinophils% 0.4 % (0-5); Hematocrit 37.7 % (37-47); Hemoglobin 11.9 g/dL (12.0-15.0); Lymphocyte # 1.85 X10^3/ul (0.83-4.51); Lymphocyte % 18.8 % (19-41); Mean Corp Hgb Conc 31.6 g/dL (32-36); Mean Corpuscular Hgb 25.2 pg (27.0-32.0); Mean Corpuscular Volume 79.9 fL (81-99); Mean Platelet Vol. 9.6 fl (6.2-12.0); Monocyte# 0.59 X10^3/uL; NRBC Flagged by Analyzer 0 % (0-5); Neutrophil % 74.1 % (47-70); Platelet Count 232 K/mm3 (150-450); RBC Distribution Width CV 14.3 % (11.6-14.6); RBC Distribution Width SD 41.3 fl (35.1-43.9); Red Blood Count 4.72 M/mm3 (4.2-5.4); White Blood Count 9.9 K/mm3 (4.4-11.0)
[2023-04-14 08:30] LABS: Bedside Glucose 69 mg/dL (74-106)
[2023-04-14 08:59] LABS: Syphilis Antibodies Non-reactive
[2023-04-14] MEDS: 0.9% Normal Saline Single 100 ML IV.SOLN. INTRA-UTER (09:35)
[2023-04-14] MEDS: Penicillin G 3,000,000 Units 50 ML 100 UNITS IV ×2 (12:08→16:12)
[2023-04-14 12:46] LABS: Bedside Glucose 82 mg/dL (74-106)
[2023-04-14 12:46] LABS: Bedside Glucose 53 mg/dL (74-106)
[2023-04-14] MEDS: LACTATED RINGERS 500 ML 999 ML IV (13:00)
--- NOTE | 2023-04-14 13:08 | HP.PCM.OB_ITS ---
HPI - General General Date of Admission: 04/14/23 HPI Narrative CHARO ALVAREZ, is a 32 F who presents for IOL diabetes, no vb lof good fm no reuglar ctx. Maternal Data Information JP Calculator Estimated Delivery Date Method Current WG Current Estimate 04/21/23 LMP (Certain) 39w 0d Other Estimates 04/16/23 Ultrasound #1 39w 5d 04/15/23 Ultrasound #2 39w 6d PFS PFS Medical History (Updated 04/14/23 @ 13:[address] Alix Nicole MD) GERD (gastroesophageal reflux disease) Gestational diabetes Missed Ovarian cyst Home Medications esomeprazole magnesium 20 mg capsule,delayed release (Nexium) 20 mg PO DAILY leg cramps 02/09/22 [History Last Taken 04/13/23 22:00] multivit-min no.71-iron fum 28 mg-folate no.1 1 mg-dha 300 mg capsule (PNV- [place]) 1 cap PO DAILY 09/09/22 [History Last Taken 04/13/23 22:00] blood sugar diagnostic (Accutrend Glucose test strips) #50 ea 10/26/22 [Rx Last Taken Unknown] blood-glucose meter #1 ea 10/26/22 [Rx Last Taken Unknown] lancets 33 gauge (BD Ultra Fine Lancets) #100 ea 10/26/22 [Rx Last Taken Unknown] Saccharomyces boulardii 250 mg capsule (Daily Probiotic (S. boulardii)) 5,000 mmu cells PO DAILY bowel issues 12/29/22 [History Last Taken Unknown] famotidine 20 mg tablet (Pepcid) 20 mg PO DAILY heartburn 03/10/23 [History Last Taken Unknown] insulin NPH isoph U-100 human 100 unit/mL (3 mL) subcutaneous pen (Novolin N FlexPen) 36 unit subcut BREAKFAST diabetes 03/10/23 [History Last Taken 04/13/23 07:00] insulin NPH isoph U-100 human 100 unit/mL (3 mL) subcutaneous pen 72 unit subcut QHS diabetes 04/14/23 [History Last Taken 04/13/23 00:00] Allergy/AdvReac Type Severity Reaction Status Date / Time No Known Allergies Allergy Verified 04/11/23 11:46 Family History Mother Acid reflux Osteoporosis Acquired scoliosis Father Acid reflux Diverticula of intestine Sleep apnea Surgical History H/O endoscopy H/O wisdom tooth extraction History of dilation and curettage Social History adopted: No household members: spouse housing: house number of children: 2 current occupational status: employed current occupation: [employer] Insurance current occupational exposures/hazards: No pets and animals: Yes (Not managing the litterbox) pets and animals: cat(s) history of recent travel: No sexually active: Yes Smoking Status: Former smoker second hand exposure: No alcohol intake: former details: prior to ocassional substance use type: does not use well-balanced diet: daily or most days caffeine: No what type of physical activity do you participate in: walking frequency: 3-4 times per week duration: 15-30 minutes/day roxy/buddhist: None seatbelt use: always do you feel safe at home: Yes additional social history: Spouse- [facility] History 4 Elective abortions Hx Para 1 Spontaneous abortions 2 Hx # Term Pregnancies Ectopic pregnancies Hx # Pregnancies Multiple births # of living children 1 Past Pregnancies Del. Date Name GA/Weeks Outcome Route Bth Weight Infant Gen Labor Lgth Anesthesia Del [facility] Provider FOB 10/18/18 Boby 38 live - full term Female epid ural [facility] Delivery Date: 10/18/18 Last Updated by: Pippa Hamm PROM Visit Details Expected Delivery Route/Plan Labor Preferences- CB/BF classes: [] labor support person: Bryant labor intervention preferences: [] pain management options preferred: epidural cut cord/dad catch:cut cord : yes PP control planned: IUD vs tubal vs vasectomy discussed possible routes of delivery and associated risks: [] special requests: [] Plans Covid status: declines Flu vaccine: declines Tdap vaccine: [] Rhogam: positive rh LARC form signed: yes Problem list reviewed and updated with the most current plan of care details and appropriate orders placed. Relevant counseling for the gestational age provided. Continue routine care and follow up unless otherwise noted in visit notes/problem list details OB Flowsheet Initial Weight: Not Recorded Date -?-?-?-?-?-?-?-?-?-?-?-?- EGA Weight BP Urine Prot -?-?-?-?-?-?-?-?-?-?-?-?- Glucose FHR FuHt Pres Dilation -?-?-?-?-?-?-?-?-?-?-?-?- Effaced St Visit Note 09/12/22 -?-?-?-?-?-?-?-?-?-?-?-?- 8w 3d 239 lb 124/76 -?-?-?-?-?-?-?-?-?-?-?--?- 160 -?-?-?-?-?-?-?-?-?-?-?-?- SM- CRL 2 cm con s with lMP 10/04/22 -?-?-?-?-?-?-?-?-?-?-?-?- 11w 4d 236 lb 4 oz 113/77 Nega tive -?-?-?-?-?-?-?-?-?-?-?-?- Negative 171 -?-?-?-?-?-?-?-?-?-?-?-?- JV- subchorionic hemorrhage getting smaller. pt failed early 1 hr and will order 3 hr. NIPT collected today. 10/19/22 -?-?-?-?-?-?-?-?-?-?-?-?- 13w 5d 235 lb 8 oz 122/74 Nega tive -?-?-?-?-?-?-?-?-?-?-?-?- Negative 157 -?-?-?-?-?-?-?-?-?-?-?-?- MH-No VB, crampi ng. Doing well without concerns. Brief US confirmed active IUP. 11/18/22 -?-?-?-?-?-?-?-?-?-?-?-?- 18w 0d 223 lb 6 oz 120/78 Nega tive -?-?-?-?-?-?-?-?-?-?-?-?- Negative 149 -?-?-?-?-?-?-?-?-?-?-?-?- JV- anatomy scan pending. no complaints today. no further bleeding. 12/16/22 -?-?-?-?-?-?-?-?-?-?-?-?- 22w 0d 234 lb 116/82 Negative -?-?-?-?-?-?-?-?-?-?-?-?- Negative 145 -?-?-?-?-?-?-?-?-?-?-?-?- SM- no vb lof go od fm no regular ctx 01/13/23 -?-?-?-?-?-?-?-?-?-?-?-?- 26w 0d 235 lb 4 oz 111/75 Nega tive -?-?-?-?-?-?-?-?-?-?-?-?- Negative 140 -?-?-?-?-?-?-?-?-?-?-?-?- no complaints to day. KW checked heart tones. fasting glucose levels 98 highest 93 lowest, on 20 and 35 of NPH. 01/25/23 -?-?-?-?-?-?-?-?-?-?-?-?- 27w 5d 235 lb 4 oz 122/79 Nega tive -?-?-?-?-?-?-?-?-?-?-?-?- Negative 143 29 -?-?-?-?-?-?-?-?-?-?-?-?- Lc- no vb/ctx/lo f. normal 28 week labs, larc signed. glucose stable on 24u in AM and 45u in PM. 02/08/23 -?-?-?-?-?-?-?-?-?-?-?-?- 29w 5d 5 lb 4 oz 236 lb 108/72 Negative -?-?-?-?-?-?-?-?-?-?-?-?- Negative 145 31 -?-?-?-?-?-?-?-?-?-?-?-?- KW for JV- no co mplaints today. insulin at 24 units a and 45 units P. Start NSTs @ 32 weeks due to obesity + gdm on insulin 02/27/23 -?-?-?-?-?-?-?-?-?-?-?-?- 32w 3d 237 lb 2 oz 110/72 Nega tive -?-?-?-?-?-?-?-?-?-?-?-?- Negative 140 -?-?-?-?-?-?-?-?-?-?--?-?- -NST only reac tive. Had growth US today 03/03/23 -?-?-?-?-?-?-?-?-?-?-?-?- 33w 0d 237 lb 106/71 Negative -?-?-?-?-?-?-?-?-?-?-?-?- Negative 130 -?-?-?-?-?-?-?-?-?-?-?-?- LC- no vb/ctx/lo f. good fm. good growth, breech currently. reactive nst. glucose controlled on insulin. 03/06/23 -?-?-?-?-?-?-?-?-?-?-?-?- 33w 3d 237 lb 117/74 Negative -?-?-?-?-?-?-?-?-?-?-?-?- Negative 140 -?-?-?-?-?-?-?-?-?-?-?-?- -NST only reac tive 03/10/23 -?-?-?-?-?-?-?-?-?-?-?-?- 34w 0d 238 lb 4 oz 110/73 Nega tive -?-?-?-?-?-?-?-?-?-?-?-?- Negative 140 -?-?-?-?-?-?-?-?-?-?-?-?- SM- reveiwed BS. no vb lof good fm no regular ctx 03/14/23 -?-?-?-?-?-?-?-?-?-?-?-?- 34w 4d 241 lb 118/79 Negative -?-?-?-?-?-?-?-?-?-?-?-?- Negative 130 Cephalic -?-?-?-?-?-?-?-?-?-?-?-?- JV- glucose leve ls well controlled. vtx presentation on exam. pL updated. 03/21/23 -?-?-?-?-?-?-?-?-?-?-?-?- 35w 4d 238 lb 6 oz 105/71 105/71 Negative -?-?-?-?-?-?-?-?-?-?-?-?- Negative 145 -?-?-?-?-?-?-?-?-?-?-?-?- KW- glucose well controlled. +FM, no cramping/lof/vb. GBS next visit 03/24/23 -?-?-?-?-?-?-?-?-?-?-?-?- 36w 0d 239 lb 2 oz 95/64 Nega tive -?-?-?-?-?-?-?-?-?-?-?-?- Negative 135 -?-?-?-?-?-?-?-?-?-?-?-?- NST only. reacti ve nst LC-NST only. reactive nst 03/29/23 -?-?-?-?-?-?-?-?-?-?-?-?- 36w 5d 241 lb 111/72 Negative -?-?-?-?-?-?-?-?-?-?-?-?- Negative 135 37 0 -?-?-?-?-?-?-?-?-?-?-?-?- 20 -4 LC- no lof /vb/ctx. good fm. reactive nst. IOL consent obtained. IOL to be arranged between 39-39+6. GBs obtained today. 03/31/23 -?-?-?-?-?-?-?-?-?-?-?-?- 37w 0d 240 lb 6 oz 110/72 Trac e -?-?-?-?-?-?-?-?-?-?-?-?- Negative 135 -?-?-?-?-?-?-?-?-?-?-?-?- SM- nst 04/11/23 -?-?-?-?-?-?-?-?-?-?-?-?- 38w 4d 242 lb 2 oz 119/80 119/80 Negative -?-?-?-?-?-?-?-?-?-?-?-?- Negative 135 -?-?-?-?-?-?-?-?-?-?-?-?- KW-+ FM. no lof/ vb/ctx. no concerns. reactive NST KW-+ FM. no lof/vb/ctx. no c oncerns. reactive NST. IOL on monday KW-+ FM. no lof/vb/ctx. no c oncerns. reactive NST. BS controlled per pt. IOL on monday04/14/23 -?-?-?-?-?-?-?-?-?-?-?-?- 39w 0d 240 lb 8.389 oz 106/ 63 106/63 133/64 115/62 102/60 120/61 -?-?-?-?-?-?-?-?-?-?-?-?- -?-?-?-?-?-?-?-?-?-?-?-?- NST FHR Rate Baby A Baseline: 130 Variability:: Moderate Accelerations:: 15 x 15 Decelerations:: None NST Reactive:: Yes FHR Category:: Category I Uterine Activity:: irregular ROS Constitutional Constitutional: Reports systems reviewed and no addt'l complaints, except as documented Eyes Eyes: Denies change in vision ENT HEENT: Reports systems reviewed and no addt'l complaints, except as documented; Denies headache(s) Cardiovascular Cardiovascular: Reports systems reviewed and no addt'l complaints, except as documented; Denies chest pain or dyspnea Respiratory/Chest Respiratory/Chest: Reports systems reviewed and no addt'l complaints, except as documented Gastrointestinal Gastrointestinal: Reports systems reviewed and no addt'l complaints, except as documented; Denies abdominal pain Genitourinary Genitourinary: Reports systems reviewed and no addt'l complaints, except as documented, contractions Details: present (irregular) and movement Details: present; Denies dysuria or genital lesions Musculoskeletal Musculoskeletal: Reports systems reviewed and no addt'l complaints, except as documented Neurologic Neurologic: Reports systems reviewed and no addt'l complaints, except as documented Endocrine Endocrinology: Reports systems reviewed and no addt'l complaints, except as documented Vital Signs Vital Signs Vital Signs: 04/14/23 07:39 04/14/23 07:39 04/14/23 07:39 Temperature Temperature Source Pulse Rate 89 92 Blood Pressure 106/63 BP Systolic 106 BP Diastolic 63 Pulse Ox 04/14/23 07:39 04/14/23 07:39 04/14/23 07:39 Temperature Temperature Source Temporal Pulse Rate Blood Pressure 106/63 BP Systolic 106 BP Diastolic 63 Pulse Ox 98 04/14/23 07:39 04/14/23 07:39 04/14/23 07:39 Temperature 97.8 F Temperature Source Pulse Rate 89 Blood Pressure BP Systolic BP Diastolic Pulse Ox 98 04/14/23 09:33 04/14/23 09:33 04/14/23 09:40 Temperature Temperature Source Temporal Pulse Rate 84 Blood Pressure 133/64 H BP Systolic 133 BP Diastolic 64 Pulse Ox 04/14/23 09:40 04/14/23 09:40 04/14/23 10:39 Temperature 97.6 F L Temperature Source Pulse Rate Blood Pressure 115/62 BP Systolic 115 BP Diastolic 62 Pulse Ox 97 04/14/23 10:39 04/14/23 11:33 04/14/23 11:33 Temperature Temperature Source Pulse Rate 76 76 Blood Pressure 102/60 BP Systolic 102 BP Diastolic 60 Pulse Ox 04/14/23 11:32 04/14/23 11:32 04/14/23 11:32 Temperature Temperature Source Temporal Pulse Rate Blood Pressure BP Systolic BP Diastolic Pulse Ox 98 98 04/14/23 11:32 04/14/23 12:25 04/14/23 12:26 Temperature 97.6 F L Temperature Source Temporal Pulse Rate Blood Pressure 120/61 BP Systolic 120 BP Diastolic 61 Pulse Ox 04/14/23 12:26 04/14/23 12:25 04/14/23 12:25 Temperature 97.5 F L Temperature Source Pulse Rate 79 Blood Pressure BP Systolic BP Diastolic Pulse Ox 98 Weight Weight: 240 lb 8.389 oz Body Mass Index (BMI) 42.6 Physical Exam Const alert, oriented x3, no apparent distress and healthy appearing HEENT normocephalic and moist oral mucous membranes Head and Scalp: atraumatic Neck full ROM, no lymphadenopathy, supple and thyroid normal General: trachea midline Lymph Lymphatic: no lymphadenopathy noted Chest inspection of chest normal Resp normal respiratory effort Cardio regular rate GI normal to inspection, nondistended, normoactive bowel sounds, soft to palpation and non-tender Inspection: gravid external exam normal Manual OB Exam: estimated gestational size appropriate, presentation cephalic, dilated, effaced and station Extremity normal to inspection General Extremity: Negative for edema Skin no rashes or lesions noted Neuro no focal motor deficits and deep tendon reflexes 2+ bilaterally Motor Exam: strength 5/5 throughout and clonus absent Psych mental status grossly normal Labs Labs Labs: Blood Type A POSITIVE Antibody Screen NEGATIVE Hct 37.7 % (37-47) Hgb 11.9 g/dL (12.0-15.0) L Obstetrics US Syphilis Total Ab Non-reactive Rubella IgG Antibody Reactive (Nonreactive) Hep Bs Antigen Non-Reactive (Nonreactive) Chlamydia DNA (HALEY) Negative (Negative) Neisseria gonorrhoeae DNA (HALEY) Negative (Negative) HIV 1&2 Antibody Non-Reactive (Nonreactive) Glucose 1 Hr 50 gm 169 mg/dL (70-140) H Rhogam given: No Assessment & Plan (1) History of recurrent miscarriages: COMMENT: neg APL panel, hga1c, tsh (2) Obesity (BMI 30-39.9): COMMENT: 1 TM GCT. encouraged healthy weight gain. BMI 41. (3) : QUALIFIERS: Weeks of gestation: 38 weeks Qualified Code(s): Z3A.38 - 38 weeks gestation of COMMENT: anatomy nl, repeat spine views in 2 wks, NIPT low risk. declined carrier screening. (4) Supervision of high risk , antepartum: COMMENT: [id number], JP 04/21/23, boy ASHUTOSH Landis Bryant(ASHUTOSH Gregg) (5) Modified White class B pregestational diabetes mellitus: COMMENT: insulin controlled. endocrine consult. plan twice weekly nsts 32u in AM, 68U in PM:03/29 after 32 weeks, growth us q 4 weeks 03/30 52% (6) Positive GBS test: COMMENT: treatment in labor (7) Encounter for induction of labor: PLAN: Plan Patient presents IOL, plan management for with fb pitocin . Pain management: plans epidural. GBS positive plan penicillin. Management of any complications: diabetes- routine bs management I have reviewed the [facility] and made any clinically relevant updates.
[2023-04-14 13:48] LABS: Bedside Glucose 69 mg/dL (74-106)
[2023-04-14] MEDS: fentaNYL-bupivacaine (epidural) 100 ML BAG EPIDURAL (14:00)
[2023-04-14 15:01] LABS: Bedside Glucose 67 mg/dL (74-106)
[2023-04-14 15:53] LABS: Bedside Glucose 69 mg/dL (74-106)
[2023-04-14] MEDS: Lactated Ringers 1,000 ML 200 ML IV (16:12)
[2023-04-14 16:50] LABS: Bedside Glucose 77 mg/dL (74-106)
--- NOTE | 2023-04-14 17:10 | EX.PCM.OBRPT ---
Assessment & Plan (1) Encounter for induction of labor: (2) History of recurrent miscarriages: COMMENT: neg APL panel, hga1c, tsh (3) Obesity (BMI 30-39.9): COMMENT: 1 TM GCT. encouraged healthy weight gain. BMI 41. (4) : QUALIFIERS: Weeks of gestation: 38 weeks Qualified Code(s): Z3A.38 - 38 weeks gestation of COMMENT: anatomy nl, repeat spine views in 2 wks, NIPT low risk. declined carrier screening. (5) Supervision of high risk , antepartum: COMMENT: [id number], JP 04/21/23, boy ASHUTOSH Landis Bryant(ASHUTOSH Keyaandrew) (6) Modified White class B pregestational diabetes mellitus: COMMENT: insulin controlled. endocrine consult. plan twice weekly nsts 32u in AM, 68U in PM:03/29 after 32 weeks, growth us q 4 weeks 03/30 52% (7) Positive GBS test: COMMENT: treatment in labor (8) Vaginal delivery: COMMENT: SM boy Charan 39 IOL gdma2 Maternal Data Information JP Calculator Estimated Delivery Date Method Current WG Current Estimate 04/21/23 LMP (Certain) 39w 0d Other Estimates 04/16/23 Ultrasound #1 39w 5d 04/15/23 Ultrasound #2 39w 6d Vaginal Delivery Operative Information Date of Procedure: 04/14/23 Pre-Operative Diagnosis: see a/p diagnoses Post-Operative Diagnosis: same Surgery / Procedure Performed: Spontaneous Vaginal Delivery Type of Anesthesia: Epidural Special Medications: none Estimated Blood Loss: 100 Fluids Replaced: crystalloid Findings Description of Procedure: Patient began pushing and delivered the head in the JOSE presentation. The head was delivered atraumatically . The anterior and posterior shoulders delivered without complication followed by the rest of the and the was placed on the maternal abdomen. Delayed cord clamping was employed for approximately 60 seconds. Cord was clamped and cut and gentle traction was applied to the cord and the placenta delivered spontaneously immediately following it was noted to be intact with three-vessel cord. The perineum and vagina were inspected and noted to have no laceration. EBL was 100. Patient and tolerated delivery well. Amniotic Fluid Description: Clear Placental Delivery Description: Spontaneous Placenta Disposition: [facility] Cord Vessel Description: 3 Vessels Cord Entanglement: None Delayed Cord Clamping: Yes Post Vaginal Delivery Medications Given After Delivery: IV Pitocin Episiotomy Description: None Complication Complications: None Procedures Urinary/Genital [id number]: [id number] Vaginal Delivery [facility]
--- NOTE | 2023-04-14 17:20 | DCINST_ITS ---
Discharge Instructions Diet Discharge Diet: No restrictions Activity Discharge Activity: Return to Normal Activity, May Drive, May Shower and May Take a Tub Bath (in 4 weeks) May resume sexual activity in: 6-8 weeks (after seen by OB provider) Weight Bearing Status: Full weight bearing Lifting Restrictions: none Dressing / Incision Call your doctor if you observe: Fever of 101 or Higher, Inability to urinate, Using more than 1 pad per hour (for more than 2 hours in a row or more), Shortness of breath, Dizziness, Chest pain and - (headache not controlled with tylenol, change in vision) Follow Up Care When: in 6 weeks for visit, call the office to make the appointment. If you had elevated blood pressures call the office to be seen within 1 week. Test Results: Test results from this visit will be discussed in further detail at your follow- up appointment, if applicable. Discharge Plan Admission Admit Date/Time: 04/14/23 07:00 Attending Provider: Alix Nicole Primary Care Provider: Marah Norwood Discharge Orders/Prescriptions Prescriptions: No Action esomeprazole magnesium [Nexium] 20 mg capsule,delayed release(DR/EC) 20 mg PO DAILY PNV-[place] 28-1-300 mg capsule 1 cap PO DAILY Novolin N FlexPen 100 unit/mL (3 mL) insulin pen 36 unit subcut BREAKFAST Saccharomyces boulardii [Daily Probiotic (S. boulardii)] 250 mg capsule 5,000 mmu cells PO DAILY famotidine [Pepcid] 20 mg tablet 20 mg PO DAILY insulin NPH isoph U-100 human 100 unit/mL (3 mL) Insulin Pen 72 unit SUBCUT QHS (DME) blood-glucose meter Misc See Rx Instructions .ROUTE .MEDSUPPLY Qty: 1 0RF Rx Instructions: As directed- Test fasting and 2 hours after meals (DME) lancets [BD Ultra Fine Lancets] 33 gauge misc See Rx Instructions .ROUTE .MEDSUPPLY Qty: 100 8RF Rx Instructions: As directed (DME) Accutrend Glucose test strips Strip See Rx Instructions .Route Qty: 50 12RF Rx Instructions: As directed test fasting and 2 hours post meal Referrals / Follow Up: Marah Norwood MD [Primary Care Provider] -
[2023-04-14] MEDS: Oxytocin 15 Units/NS 250ml 15 UNITS/250 ML IV.SOLN 83 UNITS IV (17:21)
[2023-04-14 17:38] LABS: Bedside Glucose 63 mg/dL (74-106)
[2023-04-15] VITALS (9 sets, daily range): BP systolic 102–119; BP diastolic 55–66; PULSE 73–100; RESP 16; TEMP 36.4–36.6; O2SAT 90–99
--- NOTE | 2023-04-15 06:13 | PN.OBGYN_ITS ---
Subjective Subjective Patient doing well without complaints. Tolerating PO. Ambulating and voiding without difficulty. infant feeding well. Denies chest pain, shortness of breath, calf pain/swelling, fevers, chills, lightheadedness. Objective Data Objective Data Vital Signs: Vital Signs Temp Pulse Resp BP Pulse Ox O2 Del Method 97.7 F L 81 16 117/55 L 100 Room Air 04/15/23 03:33 04/15/23 03:33 04/15/23 03:33 04/15/23 03:33 04/14/23 16:06 04/15/23 03:33 Oxygen Delivery Method Room Air Weight: 240 lb 8.389 oz Body Mass Index (BMI) 42.6 Intake & Output: Intake and Output for Last 24 Hours 04/13/23 04/14/23 04/15/23 23:59 23:59 23:59 Intake Total 2079.27 / 2079.27 Output Total 1000 / 1000 Balance 1079.27 / 1079.27 Lab / Micro Data Result Diagrams: 04/14/23 08:00 Labs: Laboratory Results - last 24 hr 04/14/23 07:42: POC Glucose 69 L 04/14/23 08:00: WBC 9.9, RBC 4.72, Hgb 11.9 L, Hct 37.7, MCV 79.9 L, MCH 25.2 L, MCHC 31.6 L, RDW Std Deviation 41.3, RDW Coeff of [place] 14.3, Plt Count 232, MPV 9.6, Immature Gran % (Auto) 0.400, Neut % (Auto) 74.1 H, Lymph % (Auto) 18.8 L, [place] % (Auto) 6.0, Eos % (Auto) 0.4, Baso % (Auto) 0.3, Absolute Neuts (auto) 7.3, Absolute Lymphs (auto) 1.85, Nucleated RBC % 0 04/14/23 08:00: Blood Type A POSITIVE, Antibody Screen NEGATIVE 04/14/23 08:00: Syphilis Total Ab Non-reactive 04/14/23 12:05: POC Glucose 53 L 04/14/23 12:23: POC Glucose 82 04/14/23 13:28: POC Glucose 69 L 04/14/23 14:28: POC Glucose 67 L 04/14/23 15:35: POC Glucose 69 L 04/14/23 16:31: POC Glucose 77 04/14/23 17:03: POC Glucose 63 L ROS Constitutional Constitutional: Reports systems reviewed and no addt'l complaints, except as documented Cardiovascular Cardiovascular: Reports systems reviewed and no addt'l complaints, except as documented Respiratory/Chest Respiratory/Chest: Reports systems reviewed and no addt'l complaints, except as documented Gastrointestinal Gastrointestinal: Reports systems reviewed and no addt'l complaints, except as documented Physical Exam Const alert, oriented x3 and no apparent distress HEENT Head and Scalp: atraumatic Resp normal respiratory effort GI soft to palpation and non-tender Bimanual Exam - Vag & Uterus: uterus non-tender Uterus Palpation: uterus fundus firm (below Umbilicus) Assessment & Plan (1) Vaginal delivery: COMMENT: SM boy Charan 39 IOL gdma2 (2) Modified White class B pregestational diabetes mellitus: COMMENT: insulin controlled. endocrine consult. plan twice weekly nsts 32u in AM, 68U in PM:03/29 after 32 weeks, growth us q 4 weeks 03/30 52% PLAN: Plan s/p PPD # 1 1. routine post delivery care 2. breast feeding- support given 3. rh positive 4. rubella immune
[2023-04-15] MEDS: Pantoprazole Sodium 20 MG Tablet PO (08:29)
[2023-04-16 06:19] LABS: Bedside Glucose 67 mg/dL (74-106)
== END 2023-04-15 17:55 | disposition home or self-care (01) | DRG 807 ==
PROVIDERS: Admitting Provider Obstetrics & Gynecology; PCP Internal Medicine; Referring Provider Obstetrics & Gynecology; Visit Provider Obstetrics & Gynecology
DX: O99.824 Streptococcus B carrier state complicating childbirth (principal); Z37.0 Single live birth; E66.8 Other obesity; O24.429 Gestational diabetes mellitus in childbirth, unspecified control; N96 Recurrent pregnancy loss; Z87.891 Personal history of nicotine dependence; O99.214 Obesity complicating childbirth; Z3A.38 38 weeks gestation of pregnancy; O99.893 Other specified diseases and conditions complicating puerperium
CPT/HCPCS: 59025; 59050; 82962; 85025; 86780; 86850; 86900; 86901; 99221; J7120; G0378

== ENCOUNTER → 2024-01-18 | Outpatient (CLI) | payer BC, SELFPAY ==
[2024-01-18 11:29] LABS: Absolute Lymphocyte Count 2.24 X10^3/uL (0.83-4.51); Absolute Neutrophil Count 6.7 X10^3/uL (2.0-7.7); Basophil# 0.02 X10^3/uL; Basophil% 0.2 % (0-1); Eosinophil# 0.06 X10^3/uL; Eosinophils% 0.6 % (0-5); Hematocrit 45.3 % (37-47); Hemoglobin 14.5 g/dL (12.0-15.0); Lymphocyte # 2.24 X10^3/ul (0.83-4.51); Lymphocyte % 23.5 % (19-41); Mean Corpuscular Hgb 25.8 pg (27.0-32.0); Mean Corpuscular Volume 80.5 fL (81-99); Mean Platelet Vol. 9.7 fl (6.2-12.0); Monocyte# 0.56 X10^3/uL; Monocyte% 5.9 % (0-10); NRBC Flagged by Analyzer 0 % (0-5); Neutrophil # 6.65 X10^3/uL (2.7-7.7); Neutrophil % 69.6 % (47-70); Platelet Count 363 K/mm3 (150-450); RBC Distribution Width CV 14.1 % (11.6-14.6); RBC Distribution Width SD 40.5 fl (35.1-43.9); Red Blood Count 5.63 M/mm3 (4.2-5.4); White Blood Count 9.6 K/mm3 (4.4-11.0)
[2024-01-18 11:44] LABS: Insulin 18.7 mU/L (2.6-37.6); Vitamin D,25 Hydroxy 10.7 ng/mL
[2024-01-18 11:55] LABS: AST(SGOT) 11 U/L (15-37); Alanine Aminotransfer ALT/SGPT 29 U/L (13-56); Albumin, Serum 4.1 g/dL (3.2-5.0); Alkaline Phosphatase 96 U/L (45-117); Anion Gap 7 (5-15); BUN 11 mg/dL (7-18); BUN/Creat Ratio 20.3 RATIO (10-20); Calcium,Total 9.4 mg/dL (8.5-10.1); Chloride 105 mmol/L (98-107); Cholesterol 139 mg/dL (200); Creatinine, Serum 0.54 mg/dL (0.55-1.02); EST Glomerular Filtration Rate 137 mL/min (>60); Est Glom Filt Rate - Afr Amer 166 mL/min (>60); Glucose 90 mg/dL (74-106); High Density Lipoprotein 49 mg/dL; Potassium 4.1 mmol/L (3.5-5.1); Protein, Total 8.1 g/dL (6.4-8.2); Sodium Level 139 mmol/L (136-145); Thyroid Stim Hormone (TSH) 1.29 uIU/mL (0.358-3.74); Triglycerides 86 mg/dL; Very Low Density Lipoprotein 17 mg/dL (5-40)
[2024-01-18 12:06] LABS: Hemoglobin A1c 5.3 % (3.8-5.6)
== END | disposition home or self-care (01) ==
LOC: LAB 09:45
PROVIDERS: PCP Internal Medicine; Referring Provider Internal Medicine; Visit Provider Internal Medicine
DX: O99.280 Endocrine, nutritional and metabolic diseases complicating pregnancy, unspecified trimester (principal); E55.9 Vitamin D deficiency, unspecified; O24.319 Unspecified pre-existing diabetes mellitus in pregnancy, unspecified trimester; Z3A.00 Weeks of gestation of pregnancy not specified; Z13.220 Encounter for screening for lipoid disorders
CPT/HCPCS: 36415; 80053; 80061; 82306; 83036; 83525; 84443; 85025